=== PATIENT | female | born 1945 | race Caucasian/White ===

== ENCOUNTER 2016-07-16 17:05 | Emergency (ER) | payer MEDICARE, OTHER ==
--- NOTE | 2016-07-16 18:07 | RAD ---
INDICATION: Chest pain COMPARISON: Chest x-ray dated June 21, 2014 TECHNIQUE: Single AP portable view of the chest was obtained. FINDINGS: Image quality is compromised due to the relative inferiority of a portable chest x-ray. The heart and mediastinum exhibit normal size and contour. The lungs are grossly clear. There is no evidence of a large pleural effusion. Visualized bones are normal for the patient's age. IMPRESSION: No radiographic evidence for acute cardiopulmonary abnormality on this portable chest x-ray.
[2016-07-16 18:26] LABS: Hematocrit 44 % (35-47); Hemoglobin 14.7 g/dl (12.0-16.0); Mean Corpuscular HGB Conc 34 g/dl (31-36); Mean Corpuscular Hemoglobin 28 pg (27-31); Mean Corpuscular Volume 83 fL (80-97); Mean Platelet Volume 8 um3 (7.4-10.4); Red Blood Count 5.26 10^6/ul (4.0-5.4); Red Cell Distribution Width 14 % (10.5-15); White Blood Count 6.6 10^3/ul (3.5-10.8)
[2016-07-16 18:43] LABS: BUN/Creatinine Ratio 15.9 (8-20); EGFR African American 119.8 (>60); EGFR Non-African American 93.2 (>60); Globulin 2.4 g/dL (2-4); Magnesium 2.9 mg/dL (1.9-2.7); Potassium 3.4 mmol/L (3.5-5.0); Total Bilirubin 0.3 mg/dL (0.2-1.0); Total Protein 6.4 g/dL (6.4-8.9); Troponin I 0.01 ng/mL (<0.04)
[2016-07-16] MEDS ORDERED: Potassium Chlor TAB* 20 MEQ TAB.ER PO ONE (18:47)
[2016-07-16 18:57] LABS: TSH (Thyroid Stimulating Horm) 2.35 mcIU/mL (0.34-5.60)
--- NOTE | 2016-07-16 23:03 | ED ---
I, Oh,Soohayan, scribed for Ron Acevedo MD on 07/16/16 at 1739 . HPI Chest Pain - HPI Summary HPI Summary: This 71 y/o female presents to ED for constant 3/10 chest tightness since 2016. Pt also reports intermittent bilat arm "twinginess", exertional SOB, and mild nonproductive cough. Pt denies any n/v or dizziness. Pt initially dismissed chest discomfort and exertional SOB as her known asthma, but decided to visit ED today when she became concerned with persistent CP. PMHx includes fibromyalgia, asthma, and HLD. She is currently on lovastatin. Last stress test was several years ago and was benign. PSHx includes right ankle repair. Pt is nonsmoker and nondrinker. - History of Current Complaint Chief Complaint: EDChestPainROMI Time Seen by Provider: 07/16/16 17:25 Hx Obtained From: Patient Onset/Duration: Started Weeks Ago, Still Present Timing: Constant Initial Severity: Moderate Current Severity: Moderate Pain Intensity: 3 Pain Scale Used: 0-10 Numeric Chest Pain Location: Diffuse Chest Pain Radiates: Yes Chest Pain Radiates To:: Arm - bilat Character: Tightness Aggravating Factor(s): Nothing Alleviating Factor(s): Nothing Associated Signs and Symptoms: Positive: Chest Pain, Shortness of Breath - exertional, Nonproductive Cough. Negative: Fever, Chills, Nausea, Vomiting - Allergy/Home Medications Allergies/Adverse Reactions: Allergies Allergy/AdvReac Type Severity Reaction Status Date / Time Albuterol Allergy VOMITING, Verified 02/28/16 17:38 Cephalexin Allergy Vomiting Verified 02/28/16 17:38 Iodinated Contrast Media Allergy Anaphylatic Verified 02/28/16 17:38 [CONTRAST DYE] Shock Peanut-containing Drug Allergy Anaphylatic Verified 02/28/16 17:38 Products Shock Tree Nuts Allergy Anaphylatic Verified 02/28/16 17:38 Shock ENVIRONMENTAL Allergy ASTHMA , Uncoded 02/28/16 17:38 SNEEZING ITCHY WATERY EYES GENERAL ANESTHESIA Allergy SEVERE Uncoded 02/28/16 17:38 VOMITING PMH/Surg Hx/FS Hx/Imm Hx Endocrine/Hematology History: Denies: Hx Blood Disorders Cardiovascular History: Reports: Hx Hypertension - CONTROL WITH MEDICATION Respiratory History: Reports: Hx Asthma - CONTROL WITH INHALERS GI History: Reports: Hx Gastroesophageal Reflux Disease - CONTROL WITH MEDS, Hx Irritable Bowel Musculoskeletal History: Reports: Hx Arthritis - KNEE, LEFT ANKLE, LEFT SHOULDER , Other Musculoskeletal History - Lt ankle surgery w/ hardware Sensory History: Reports: Hx Contacts or Glasses - GLASSES, Hx Hearing Aid - BILATERAL Opthamlomology History: Reports: Hx Contacts or Glasses - GLASSES - Cancer History Hx Chemotherapy: No Hx Radiation Therapy: No - Surgical History Surgery Procedure, Year, and Place: 2002 LAPAROSCOPIC CHOLECYSTECTOMY, [facility]. 1948 TONSILLECTOMY AND ADENEOIDECTOMY,. 2003 [facility]/2014 LEFT ANKLE FRACTURE ORIF, [facility] Hx Anesthesia Reactions: Yes - SEVERE VOMITING Infectious Disease History: No Infectious Disease History: Denies: Traveled Outside the [place] in Last 30 Days - Family History Known Family History: Positive: Diabetes, Other - dementia, atherosclerosis, cancer - Social History Alcohol Use: None Hx Substance Use: No Substance Use Type: Reports: None Hx Tobacco Use: Yes Smoking Status (MU): Former Smoker Amount Used/How Often: SMOKED FOR 3 MONTHS IN COLLEGE / SECONDHAND SMOKE FOR 10 YEARS Review of Systems Negative: Fever Positive: Chest Pain Positive: Shortness Of Breath - exertional, Cough - nonproductive Negative: Vomiting, Nausea Positive: Other - BUE "twinginess" Neurological: Other - negative for dizziness Negative: Weakness Negative: Anxious, Depressed All Other Systems Reviewed And Are Negative: Yes Physical Exam - Summary Physical Exam Summary: VITAL SIGNS: Reviewed. GENERAL: Patient is a well developed and nourished female who is lying comfortable in the stretcher. Patient is not in any acute respiratory distress. HEAD AND FACE: No signs of trauma. No ecchymosis, hematomas or skull depressions. No sinus tenderness. EYES: PERRLA, EOMI x 2, No injected conjunctiva, no nystagmus. EARS: Hearing grossly intact. Ear canals and tympanic membranes are within normal limits. MOUTH: Oropharynx within normal limits. NECK: Supple, trachea is midline, no adenopathy, no JVD, no carotid bruit, no c- spine tenderness, neck with full ROM. CHEST: Symmetric, no tenderness at palpation LUNGS: Clear to auscultation bilaterally. No wheezing or crackles. CVS: Regular rate and rhythm, S1 and S2 present, no murmurs or gallops appreciated. ABDOMEN: Soft, non-tender. No signs of distention. No rebound no guarding, and no masses palpated. Bowel sounds are normal. EXTREMITIES: FROM in all major joints, no edema, no cyanosis or clubbing. NEURO: Alert and oriented x 3. No acute neurological deficits. Speech is normal and follows commands. SKIN: Dry and warm Triage Information Reviewed: Yes Vital Signs On Initial Exam: Initial Vitals Temp Pulse Resp BP Pulse Ox 96.3 F 92 16 159/84 99 07/16/16 17:13 07/16/16 17:13 07/16/16 17:13 07/16/16 17:13 07/16/16 17:13 Vital Signs Reviewed: Yes Diagnostics - Vital Signs Vital Signs Temp Pulse Resp BP Pulse Ox 07/16/16 17:13 96.3 F 92 16 159/84 99 - Laboratory Lab Results: Lab Results 07/16/16 07/16/16 07/16/16 Range/Units 18:00 18:00 18:00 WBC 6.6 (3.5-10.8) 10^3/ul RBC 5.26 (4.0-5.4) 10^6/ul Hgb 14.7 (12.0-16.0) g/dl Hct 44 (35-47) % MCV 83 (80-97) fL MCH 28 (27-31) pg MCHC 34 (31-36) g/dl RDW 14 (10.5-15) % Plt Count 231 (150-450) 10^3/ul MPV 8 (7.4-10.4) um3 Neut % (Auto) 69.5 (38-83) % Lymph % (Auto) 23.2 L (25-47) % [place] % (Auto) 4.8 (1-9) % Eos % (Auto) 2.0 (0-6) % Baso % (Auto) 0.5 (0-2) % Absolute Neuts (auto) 4.6 (1.5-7.7) 10^3/ul Absolute Lymphs (auto) 1.5 (1.0-4.8) 10^3/ul Absolute Monos (auto) 0.3 (0-0.8) 10^3/ul Absolute Eos (auto) 0.1 (0-0.6) 10^3/ul Absolute Basos (auto) 0 (0-0.2) 10^3/ul Absolute Nucleated RBC 0 10^3/ul Nucleated RBC % 0.1 Sodium 137 (133-145) mmol/L Potassium 3.4 L (3.5-5.0) mmol/L Chloride 103 (101-111) mmol/L Carbon Dioxide 27 (22-32) mmol/L Anion Gap 7 (2-11) mmol/L BUN 10 (6-24) mg/dL Creatinine 0.63 (0.51-0.95) mg/dL Est GFR ( Amer) 119.8 (>60) Est GFR (Non-Af Amer) 93.2 (>60) BUN/Creatinine Ratio 15.9 (8-20) Glucose 100 (70-100) mg/dL Lactic Acid 0.7 (0.5-2.0) mmol/L Calcium 9.0 (8.6-10.3) mg/dL Magnesium 2.9 H (1.9-2.7) mg/dL Total Bilirubin 0.30 (0.2-1.0) mg/dL AST 19 (13-39) U/L ALT 16 (7-52) U/L Alkaline Phosphatase 61 (34-104) U/L Total Creatine Kinase 35 (10-223) U/L CK-MB (CK-2) 1.2 (0.6-6.3) ng/mL Troponin I 0.01 (<0.04) ng/mL B-Natriuretic Peptide ( - 100) pg/mL Total Protein 6.4 (6.4-8.9) g/dL Albumin 4.0 (3.2-5.2) g/dL Globulin 2.4 (2-4) g/dL Albumin/Globulin Ratio 1.7 (1-3) TSH Pending 07/16/16 Range/Units 18:00 WBC (3.5-10.8) 10^3/ul RBC (4.0-5.4) 10^6/ul Hgb (12.0-16.0) g/dl Hct (35-47) % MCV (80-97) fL MCH (27-31) pg MCHC (31-36) g/dl RDW (10.5-15) % Plt Count (150-450) 10^3/ul MPV (7.4-10.4) um3 Neut % (Auto) (38-83) % Lymph % (Auto) (25-47) % [place] % (Auto) (1-9) % Eos % (Auto) (0-6) % Baso % (Auto) (0-2) % Absolute Neuts (auto) (1.5-7.7) 10^3/ul Absolute Lymphs (auto) (1.0-4.8) 10^3/ul Absolute Monos (auto) (0-0.8) 10^3/ul Absolute Eos (auto) (0-0.6) 10^3/ul Absolute Basos (auto) (0-0.2) 10^3/ul Absolute Nucleated RBC 10^3/ul Nucleated RBC % Sodium (133-145) mmol/L Potassium (3.5-5.0) mmol/L Chloride (101-111) mmol/L Carbon Dioxide (22-32) mmol/L Anion Gap (2-11) mmol/L BUN (6-24) mg/dL Creatinine (0.51-0.95) mg/dL Est GFR ( Amer) (>60) Est GFR (Non-Af Amer) (>60) BUN/Creatinine Ratio (8-20) Glucose (70-100) mg/dL Lactic Acid (0.5-2.0) mmol/L Calcium (8.6-10.3) mg/dL Magnesium (1.9-2.7) mg/dL Total Bilirubin (0.2-1.0) mg/dL AST (13-39) U/L ALT (7-52) U/L Alkaline Phosphatase (34-104) U/L Total Creatine Kinase (10-223) U/L CK-MB (CK-2) (0.6-6.3) ng/mL Troponin I (<0.04) ng/mL B-Natriuretic Peptide 23 ( - 100) pg/mL Total Protein (6.4-8.9) g/dL Albumin (3.2-5.2) g/dL Globulin (2-4) g/dL Albumin/Globulin Ratio (1-3) TSH Result Diagrams: 07/16/16 18:00 07/16/16 18:00 Lab Statement: Any lab studies that have been ordered have been reviewed, and results considered in the medical decision making process. - Radiology CXR Xray Interpretation: No Acute Changes Radiology Interpretation Completed By: Radiologist - EKG 1720 Cardiac Rate: NL - 71 bpm EKG Rhythm: Sinus Rhythm Chest Pain Course/Dx - Course Assessment/Plan: This 71 y/o female presents to ED for constant 3/10 chest tightness since 07/07/2016. Pt also reports intermittent bilat arm "twinginess", exertional SOB, and mild nonproductive cough. Pt denies any n/v or dizziness. Pt initially dismissed chest discomfort and exertional SOB as her known asthma, but decided to visit ED today when she became concerned with persistent CP. PMHx includes fibromyalgia, asthma, and Dyslipidemia. Labs wnl except for hypokalemia for which she was given potassium chloride. Troponin #1 is 0.01. Second troponin is 0.01. EKG: NSR w/o GERALDINE. CXR: NO acute pathology. Patient has remained asymptomatic. Therefore she will be discharged home w/ f/u of PMD. I discussed all my findings and test results with the patient. Patient understands and agrees. Patient was instructed to return to the emergency room immediately if any of the symptoms return or worsens. Patient understands and agrees. Plan of care was discussed with the patient and patient understands and agrees with the plan of care. All questions were answered at patient satisfaction. There were no further complaints or concerns. Patient was instructed to follow up with primary care physician within 3 to 5 days. Patient is hemodynamically stable. Patient is alert and oriented x 3. No acute neurological deficits. - Chest Pain Differential Diagnosis/HQI/PQRI: Acute RI, ACS, Angina, CHF, Chest Wall, GI Disease, Lower Respiratory Infection - Diagnoses Provider Diagnoses: Chest pain Discharge - Discharge Plan Condition: Stable Disposition: HOME Patient Education Materials: Chest Pain (ED) Referrals: Chano Johnson MD [Primary Care Provider] - 2 Days The documentation as recorded by the Shaharm jones Soohyun accurately reflects the service I personally performed and the decisions made by me, Ron Acevedo MD.
[2016-07-16 23:08] VITALS: BP 139/65
== END 2016-07-16 23:12 | disposition home or self-care (01) ==
LOC: ED 17:05
DX: R07.9 Chest pain, unspecified (principal); R06.02 Shortness of breath; R05 Cough
CPT/HCPCS: 36415; 71010; 80053; 82550; 82553; 83605; 83735; 83880; 84443; 84484; 85025; 93005; 99284; A9270-GY

== ENCOUNTER 2017-01-17 10:41 | Day surgery (SDC) | payer MEDICARE, OTHER ==
[2017-01-17] MEDS ORDERED: Dexamethasone IV* 4 MG/ML 1 ML (4 MG) ONE (11:12)
[2017-01-17] MEDS ORDERED: Bupivacaine 0.25% SDV* 30 ML ONE (11:12)
[2017-01-17] MEDS ORDERED: Lidocaine 1% INJ* 10 MG/ML 30 ML SDV ONE (11:12)
[2017-01-17 13:01] VITALS: BP 124/88
--- NOTE | 2017-01-18 12:24 | OP ---
DATE OF OPERATION: 01/17/17 - [facility] DATE OF : 45 SURGEON: Nasim Yip DPM [facility] K[facility] STITCHER: [place]. ANESTHESIA: Straight local. PRE-OP DIAGNOSIS: Soft tissue mass, right foot. POST-OP DIAGNOSIS: Soft tissue mass, right foot. OPERATIVE PROCEDURE: Excision of soft tissue mass, right foot. ESTIMATED BLOOD LOSS: Less than 10 cc. IV FLUIDS: LR 1000 cc. DRAINS: None. SPECIMEN: DESCRIPTION OF PROCEDURE: The patient was taken to the operating room where she was placed in the supine position. Time-out was called and OR team agreed. The right foot was then blocked with 5 cc of 1% lidocaine plain intralesionally. The lateral aspect of the right heel was then prepped and draped in a sterile manner. The right foot was exsanguinated with an Esmarch bandage and the cuff was then inflated to 250 mmHg. Attention was then paid to the lateral aspect of the right heel, there was a palpable soft tissue mass on the lateral aspect approximately size 1 cm. This was confirmed via ultrasound, which showed a calcified mass as well as x-rays in the office. I then proceeded to make a linear incision, this was followed by sharp and blunt dissection. All bleeders were coagulated site, I was able to excise a 1- cm, what appeared to be, cartilaginous/calcified mass, well-circumscribed with smooth edges. I then proceeded to inspect the rest of the tissue and there appeared to be no other signs of the mass in that area. The procedure was then deemed completed. The wound was irrigated with normal saline. The wound was closed with simple sutures of 4-0 nylon. The cuff was then deflated. The patient tolerated the procedure and anesthesia well. The patient was then taken to Recovery in stable condition and was later discharged in stable condition as well. [id number]/[facility] #: [id number] [facility]ITAL[facility]
== END 2017-01-17 13:01 | disposition home or self-care (01) ==
LOC: OR 10:41
PROVIDERS: ATTEND Podiatrist
DX: D21.21 Benign neoplasm of connective and other soft tissue of right lower limb, including hip (principal)
CPT/HCPCS: 88305; 88311; J1100; J2001

== ENCOUNTER 2017-09-18 11:37 | Inpatient (IN) | payer MEDICARE, OTHER ==
--- NOTE | 2017-09-05 20:45 | HP ---
HISTORY AND PHYSICAL: DATE OF SURGERY/ADMISSION: 09/18/17 DATE OF OFFICE VISIT: 09/05/17 SURGEON: Ericka Billingsley MD* (dictated by NERIS Bain). PROCEDURE: Left total knee arthroplasty. CHIEF COMPLAINT: Left knee pain. HISTORY OF PRESENT ILLNESS: Ms. Charles is a 72-year-old female with continued complaints of left knee pain secondary to end-stage osteoarthritis. She has failed conservative management and elected to proceed with a left total knee arthroplasty, which is scheduled for 09/18/[address] Billingsley. PAST MEDICAL HISTORY: 1. Hypertension. 2. Hyperlipidemia. 3. Fibromyalgia. 4. Asthma. PAST SURGICAL HISTORY: 1. Tonsillectomy. 2. Adenoidectomy. 3. Cholecystectomy. 4. ORIF of the left ankle. CURRENT MEDICATIONS: 1. Vagifem. 2. Meloxicam 50 mg daily. 3. Naltrexone low-dose. 4. Lovastatin 20 mg q.h.s. 5. Aspirin 81 mg daily. 6. Benefiber. 7. Omeprazole 20 mg daily. 8. Venlafaxine 37.5 mg a half a tab in the morning, 1 full tab at night. 9. Irbesartan 150 mg daily. 10. Loratadine 5 mg daily as needed. 11. Xopenex HFA 45 mcg/ACT 1 puff 4 times a day as needed. 12. CoQ10. 13. Multivitamin. 14. EpiPen as needed. 15. Triamcinolone cream. 16. Probiotic complex 17. Vitamin D3. 18. Vitamin B complex. 19. Aerospan twice daily. 20. Singulair 10 mg daily. 21. Turmeric. 22. Calcium. 23. Magnesium. 24. Zinc. 25. Clobetasol. 26. Restasis. ALLERGIES: NUTS, ALBUTEROL, LEVAQUIN, CONTRAST DYE, KEFLEX, and ANIMAL HAIR. FAMILY HISTORY: Cancer, Alzheimer's, and stroke. SOCIAL HISTORY: She is a 72-year-old female. She lives with her . She does not smoke, use drugs or alcohol. REVIEW OF SYSTEMS: A complete 14-point review of systems was reviewed with the patient, it was positive for GERD and asthma. She denies history of DVT, PE, hepatitis C, or HIV. PHYSICAL EXAMINATION GENERAL: She is well developed, well nourished, in no acute distress. VITAL SIGNS: She stands 5 feet 8 inches tall, weighs 208 pounds. Her blood pressure is 132/88. Her heart rate is 73. HEENT: Normocephalic, atraumatic. NECK: Supple. No palpable lymph nodes. PULMONARY: The lungs are clear to auscultation. CARDIO: Regular rate and rhythm. Strong S1, S2. ABDOMEN: Soft, nontender, and nondistended. MUSCULOSKELETAL: Left lower extremity: The skin is intact. There are no open wounds or abrasions. She has some tenderness along the medial and lateral joint line. 10 to 120 degrees of flexion. No varus or valgus instability. Negative Francisco J's. 5/5 lower extremity strength. 2+ dorsalis pedis pulses and intact sensation. NEUROLOGICAL: She is alert and oriented x3. Cranial nerves II through XII are intact. ASSESSMENT AND PLAN: Ms. Charles is a 72-year-old female with continued complaints of left knee pain secondary to end-stage osteoarthritis. She has failed conservative management and elected to proceed with a left total knee arthroplasty, which is scheduled for 09/18/[address] Billingsley discussed the risks and benefits of the surgery at today's visit and all of her questions were answered. She will follow up with Dr. Billingsley in 2 weeks after the surgery. NERIS BAIN [id number]/[facility] #: [id number] [facility]
[~2017-09-18 11:37] MED LIST: Acetaminophen IV 1GM/100ML * 1,000 MG/100 ML VIAL IVPB ONE; Buffered Lidocaine 0.9% SYRIN* 5 ML/SYR SYRINGE INTRADERM ONE; Dexamethasone IV* 4 MG/ML 1 ML (4 MG) IV SLOW PU ONE; Famotidine IV* 10 MG/ML 2 ML (20 mg) IV ONE; Gabapentin CAP(*) 300 MG PO ONE; Levalbuterol 0.63MG/3ML NEB* UNIT OF USE INH ONE; celeCOXIB CAP* 200 MG PO ONE
--- OUTSIDE RECORDS SUMMARY | 2017-09-18 11:48 | XMS REPORT ---
:1945 External Reference #:[id number] Author Organization [facility] Address [address] [address] Phone [phone] Care Team Providers Name Role Phone Chano Johnson MD Primary Care Physician Unavailable Payers Type Date Identification Numbers Payment Provider Subscriber Medicare Primary Effective: Policy Number: Medicare Alison Hubbard 2010 [id number] PayID: [id number] [address] [place] [address] Commercial Policy Number: [id number] [employer] Alison Hubbard Group Number: [id number] [address] PayID: [id number] [place] [address] Medigap Part B Expires: 2017 Policy Number: [employer] Insurance Alison Hubbard [id number] Group Number: [id number] [address] PayID: [id number] [place] [address] Problems Date Description Provider Status Onset: 05/29/2010 Benign essential hypertension Reji Abel M.D.,FACP Onset: 06/27/2011 Essential tremor Reji Abel M.D.,FACP Onset: 01/03/2012 Pure hypercholesterolemia Reji Abel M.D.,FACP Onset: 06/10/2014 Mild persistent asthma Reji Abel M.D.,FACP Onset: 06/13/2014 Arthralgia of the ankle and/or foot Eastonstuart Mukherjee M.D. Active Onset: 07/11/2014 Localized, primary osteoarthritis Easton Mukherjee M.D. Active of the shoulder region Onset: 06/15/2015 Irritable bowel syndrome Reji Abel M.D.,FACP Onset: 03/01/2016 Closed fracture of patella Woodrow Badillo MD Active Onset: 06/06/2017 Acquired genu valgum Ericka Billingsley M.D. Active Onset: 06/03/2017 Localized, secondary osteoarthritis Woodrow Badillo MD Active Onset: 06/27/2017 Fibromyalgia Reji Abel M.D.,FACP Onset: 08/26/2017 Lumbar radiculopathy Woodrow Badillo MD Active Onset: 01/03/2012 Myalgia & Myositis Unspec Chano Johnson, Blanche Tucker,FACP Inactive: 03/10/2015 Onset: 06/13/2014 Closed bimalleolar fracture Easton Mukherjee M.D. Inactive Inactive: 03/10/2015 Onset: 06/13/2014 Fall From Other Slipping,Tripping, Easton Mukherjee M.D. Inactive Or Stumbling Inactive: 03/10/2015 Onset: 09/12/2014 Localized, primary osteoarthritis Easton Mukherjee M.D. Inactive Inactive: 03/10/2015 Onset: 09/12/2014 Arthralgia of the lower leg Easton Mukherjee M.D. Inactive Inactive: 03/10/2015 Onset: 05/29/2010 Blood chemistry abnormal Chano Johnson M.D.,FACP Inactive Inactive: 03/10/2015 Onset: 06/13/2014 Sprain of ankle Easton Mukherjee M.D. Inactive Inactive: 06/15/2015 Onset: 07/11/2014 Shoulder joint pain Easton Mukherjee M.D. Inactive Inactive: 06/15/2015 Onset: 07/11/2014 Disorder of shoulder Easton Mukherjee M.D. Inactive Inactive: 06/15/2015 Onset: 07/11/2014 Shoulder stiff Easton Mukherjee M.D. Inactive Inactive: 06/15/2015 Onset: 07/16/2016 Chest pain Jhonathan Vasquez NP Inactive Inactive: 07/31/2016 Onset: 07/04/2014 Sprain of distal tibiofibular Easton Jerrell Mukherjee M.D. Resolved ligament Resolved: 03/10/2015 Family History Date Family Member(s) Problem(s) Comments General Cancer, Breast 2 paternal cousins General Cancer bone cancer in 2 other cousins Father due to polycythemnia () and TIAs Mother Cancer, Breast ER positive age 80, was on tamoxifen Mother 97 Siblings 1 First Sister Alive And Well Paternal Grandfather due to Dementia () - ?vascular Paternal Grandmother due to Cancer, Breast () Social History Type Date Description Comments Marital Status Lives With Occupation Process Development Engineer Occupation Simple [employer] intermittently Cigarette Use Never Smoked Cigarettes some 2nd hand ETOH Use 06/27/2017 Denies alcohol use Recreational Drug Use Denies Drug Use Smoking Patient is a former 3 month smoker in college. smoker Lived w/ 10 year smoker. Daily Caffeine Consumes on average 3 cups of regular coffee per day Exercise Type/Frequency Walks 2 times a week walk 10-15 mins 3 times a week at the gym - 45 mins -20 mins cardio 25 weight training General Hx Text no kids Allergies, Adverse Reactions, Alerts Date Description Reaction Status Severity Comments 04/28/2007 Nuts active 06/24/2008 Albuterol active vomiting 01/23/2011 Levaquin active hepatitis, vomiting 06/27/2011 contrast dye active shaky, hives 11/23/2012 Cephalexin vomiting active 08/26/2016 Animal Hair Urticaria active Mild to Moderate Medications Medication Date Status Form Strength Qnty SIG Indications Ordering Provider Mobic 08/26 Active Tablets 15mg 30tab take 1 M54.16 Zaneb /2017 s daily with MD Justino food. Cyclobenzaprine 08/26 Active Tablets 10mg 30tab take 1 tab M54.16 Zaneb HCL s 3 times a MD Justino day as needed Vagifem 06/27 Active Tablets 10mcg pv 2x/wk Chano /Woo Johnson M.D.,FACP Naltrexone Low 04/01 Active Powder 2.5mg 60uni 1-2 by Chano ts mouth Floresita Johnson, every day M.D.,FACP as needed (compounde d for daily use) Lovastatin 10/25 Active Tablets 20mg 90tab Take 1 s tablet by Floresita Johnson, mouth at Afshin.Floresita,FACP bedtime Aspir-81 08/[address] 81mg 30tab 1 by mouth s every day Floresita Johnson, except on M.D.,FACP days she takes Aspirn 325 MG for pain Benefiber 06/08 Active Powder 1 Tb with 8 oz of Citizen Of [place], PROPERTY ADMINISTRATOR water daily in the am Omeprazole 05/[address] 20mg 30cap 1 by mouth K21.9 s daily, november Citizen Of [place], PROPERTY ADMINISTRATOR take 1 capsule 12 hours later as needed Venlafaxine HCL 08/04 Active Tablets 37.5mg 135ta Take bs One-Half Floresita Johnson, Tablet By Caitlin,FACP Mouth In The Morning And 1 Tablet By Mouth In The Evening Irbesartan 10/27 Active Tablets 150mg 90tab Take 1 R49.8 s tablet by Floresita Johnson, mouth M.DRobin,FACP daily Loratadine-D 06/27 Active Tablets ER 5mg 1 po qd 24HR /2010 24HR prn Floresita Johnson M.D.,FACP Xopenex HFA 09/12 Active Aerosol 45mcg/Act 1Mon 1 puff qid prn Floresita Johnson M.D.,FACP Co Q 10 12/30 Active Capsules 1 tablets Qutayb po qd Anahi Trinh M.D. Multi-Vitamin 12/30 Active Tablets 90tab 1 PO qd Qutayb s Anahi Trinh M.D. Epipen 04/28 Active Device 1:1000 1unit Ine Qutayb s Injection S. as Needed Caitlin Trinh Triamcinolone Active Cream 0.1% 30G apply bid Unknown Cream /0000 prn Probiotic Active Capsules 2 capsule Unknown Complex/Acidophi /0000 daily alyssa Vitamin D3 Active Capsules 2000Unit 4caps 1 cap Unknown / daily Vitamin B Active Tablets 1 by Unknown Complex /0000 [id number] per week Aerospan Active Aerosol 80mcg/Act 2 puff Unknown twice a day Singulair Active Tablets 10mg 1 by mouth every day Melatonin Active 300mcg nightly as needed Epinephrine Active Solution 0.15mg/0. As needed Auto-Inject 3ML Turmeric Active 1 daily Unknown Calcium Active Tablet 500-300mg 1 tab po Unknown Magnesium Zinc daily Clobetasol Active Ointment 0.05% topical Unknown Propionate every day as needed Restasis Active Emulsion 0.05% Barrett-E Active Tablets 200mg daily Lutein Active daily Unknown Pataday Active Solution 0.2% 1 ggt both eyes every day as needed Meloxicam 06/06 Hx Tablets 15mg 30tab 1 by mouth M25.562 Ericka s every day Mik Billingsley M.D. 08/02 Sulfamethoxazole 12/17 Hx Tablets 800-160mg 10tab by mouth Chano /Trimethoprim /2016 s twice a Floresita Johnson, - day MNaman,[facility] 12/22 Naltrexone Low 12/03 Hx Powder 4.5mg 90uni 1 by mouth Chano Dose /2016 ts every day Floresita Johnson, - saud Tucker,FACP 04/01 d daily use) Naltrexone Low 10/04 Hx Powder 1.5mg 30uni 1 by mouth Jhonathan Dose /2016 ts every day Citizen [place], PROPERTY ADMINISTRATOR - 12/03 Naltrexone Low 08/20 Hx Powder 4.5mg 30uni 1 capsule Chano Dose /2016 ts daily Mik Plata M.D.,[facility] 10/04 Bactrim DS 08/13 Hx Tablets 800-160mg 10tab 1 by mouth Chano /2016 s twice a DRobin Johnson, - day M.DRobin,FACP 08/18 Lovastatin 06/25 Hx Tablets 20mg 90tab take 1 s tablet at Floresita Johnson, - bedtime MNaman,FACP 07/31 Nitrofurantoin 04/29 Hx Capsules 100mg 14cap 1 capsule R30.0 Jhonathan Macrocrystal s by mouth CORINA Vasquez - twice a 05/06 day x's days Polymyxin B 03/06 Hx Solution 65607-3.1 10uni 1 ggt H10.89 Chano Sulfate/Trimetho Unit/ML-% ts affected Floresita Johnson, prim Sulfate - eye every M.D.,[facility] 03/11 3 hours 5 days Hydrocodone-Acet 03/01 Hx Tablets 5-325mg 60tab 1-2 tabs S82.036A Jess Allan aminophen s by mouth Floresita Johnson, - four times M.D.,[facility] 05/14 a day needed pain Bactrim DS 01/03 Hx Tablets 800-160mg 10tab 1 by mouth s twice a Floresita Johnson, - day M.D.,[facility] 01/08 Macrodantin 12/25 Hx Capsules 100mg 6caps 1 tablet N39.0 by mouth CORINA Vasquez - twice a 12/28 day x's days Diclofenac 12/[address] 75mg 60tab take 1 M75.41 Zaneb Sodium s tablet MD Justino - twice a 04/29 day food do not combine with ibuprofen Xarelto 06/14 Hx Tablets 10mg 30tab 1 tablet Easton Allan /2013 s po daily Lonny - M.DRobin 11/18 Hydrocodone-Acet 12/17 Hx Tablets 7.5-325mg 60tab 1 by mouth García aminoalycia s twice a Marissaika, - day as M.D. 03/01 needed pain Macrobid 06/15 Hx Capsules 100mg 14cap 1 tab po 599.0 s bid x 7 Cotton, - days M.D. 10/28 Omeprazole OTC 11/[address] 30cap 1 po qd Chano Mik Bailey M.D.,[facility] 05/10 Nexium 11/[address] 40mg 90cap Take 1 s Monica Boudreaux M.D. - Daily 11/23 Nexium 11/[address] po qpm Mik Plata M.D.,[facility] 11/19 Savella 08/04 Hx Tablets 12.5mg 60tab take 1 729.1 s tablet Floresita Johnson, - twice a M.D.,[facility] Savella 07/22 Hx Tablets 50mg 60tab 1 po bid 729.1 s Mik Plata M.D.,[facility] 08/04 Zantac 06/22 Hx Tablets 150mg 60tab 1 po bid 787.99 Chano s prn Mik Plata M.D.,[facility] 11/23 Savella 06/22 Hx Misc 12.5& 1pak as 787.99 Chano Titration 25&50 directed Floresita Johnson, - mg samples M.D.,[facility] 07/02 Anusol-HC 03/31 Hx Suppository 25mg 28uni 1 455.0 ts suppositor Floresita Johnson, - y bid x 14 M.D.,[facility] Metamucil 03/31 Hx Powder 48.57% 30Pac 3.4 g of 455.0 Olga kets pwder in 8 Deep, - oz fluid N.P. 07/22 Culturelle 03/31 Hx Capsules 30cap 1 po qd 455.0 Olga [facility] s Deep, - N.P. 07/22 564.1 Sitz Bath 03/31/2012 - Hx Misc 1units as directed 455.2 Olga 11/23/2012 Deep, N.P. Venlafaxine HCL 02/03/2012 - Hx Tablets 37 180tabs Take 1 Tablet Bret 07/20/2012 .5 daily for 10 Endo, M.D. mg days then stop Dhea 06/27/2011 - Hx Capsules 10 1 capsule Chano 01/03/2012 mg daily Floresita Johnson M.D.,[facility] Hydrocodone/Yonas 03/26/2011 - Hx Tablets 7. 60tabs 1 Bid prn Olga taminophen 12/17/2013 5- Deep, 65 N.P. 0m g Doxycycline 01/23/2011 - Hx Tablets 10 28tabs 100 mg orally Chano Hyclate 03/12/2011 0m twice daily x laure Plata 14 days M.DRobin,FACP Penicillin V 01/19/2011 - Hx Tablets 50 40tabs qid for 10 Chano Potassium 01/23/2011 0m days laure Plata M.D.,LANIP Aspirin 01/19/2011 - Hx Tablets 32 1-2 po qid prn Chano 11/23/2012 5m laure Plata M.D.,LANIP Cephalexin 01/04/2011 - Hx Tablets 50 21tabs po tid 682.9 Chano 01/14/2011 0m laure Plata M.D.,FACP Sertraline HCL 08/09/2010 - Hx Tablets 25 30tabs 12.5 po qam Chano 01/16/2011 mg Floresita Johnson M.D.,FACP Meclizine HCL 08/09/2010 - Hx Tablets 25 30tabs 1/2-1 po tid 386.19 Chano 11/19/2010 mg prn Floresita Johnson M.D.,ANSHU Erythomycin 06/12/2010 - Hx Oint 1Tube 5x day for 5 372.00 Chano Ophthalmic 11/19/2010 days od Floresita Johnson M.D.,ANSHU Fluticasone 12/13/2009 - Hx Suspension 50 1bottle 1 spray each 784.0 Chano Propionate 06/27/2011 nostril in am laure Plata/ giorgion Caitlin,ANSHU Ac t Avapro 09/12/2009 - Hx Tablets 15 90tabs 1 po qd 784.49 Chano 10/28/2011 0m laure Plata M.D.,LANIP Azithromycin 08/22/2009 - Hx Tablets 50 5tabs 1 tab qd for 466.0 Jess Allan 09/12/2009 0m 5days laure Plata M.D.,FACP Diflucan 09/30/2008 - Hx Tablets 10 1tabs 1 po x 1 Chano 12/29/2008 0m laure Plata M.D.,[facility] Augmentin 08/26/2008 - Hx Tablets 87 20tabs si bid x 466.0 Jess Allan 08/31/2008 5m 10 days laure Plata M.D.,[facility] Avelox 06/24/2008 - Hx Tablets 40 7tabs 1 po qd x 7 562.10 Chano 12/29/2008 0m days laure Plata M.D.,[facility] Ceftin 04/19/2008 - Hx Tablets 50 28tabs 1 bid X 14 562.10 Chano 06/24/2008 0m Days with food laure Plata M.D.,[facility] Hetal-B 12/31/2007 - Hx Capsules 2 po qd Qutaybeh S. 11/23/2012 Caitlin Trinh Calcium 500 12/31/2007 - Hx Tablets 50 1 PO qd (Is Qutaybeh S. 10/13/2016 0m now taking laure Trinh calcium 300mg, MRobinDRobin magnesium 150 mg ) Magnesium 12/31/2007 - Hx Tablets 1 PO qd Qutaybeh S. 05/09/2015 Caitlin Trinh Fish Oil 12/31/2007 - Hx Capsules 90caps 1 PO qd Qutaybeh S. 12/26/2015 Caitlin Trinh Lisinopril 12/23/2007 - Hx Tablets 20 8tabs 1 po qd 784.49 Qutaybeh S. 09/12/2009 mg Caitlin Trinh Lisinopril 07/29/2007 - Hx Tablets 10 180tabs 2 PO qd Qutaybeh S. 12/23/2007 mg Caitlin Trinh Lisinopril 07/28/2007 - Hx Tablets 10 2 PO qam, 1 po Qutaybeh S. 07/29/2007 mg qpm Caitlin Trinh Lisinopril 07/27/2007 - Hx Tablets 10 2 po qd Qutaybeh S. 07/28/2007 mg Caitlin Trinh Isocort 06/15/2007 - Hx 4/d for Qutaybeh S. 12/08/2007 fibromyalgia phillip Trinh M.D. Naproxen Sodium 06/15/2007 - Hx Tablets 2-4 1x/week Qutaybeh S. 01/16/2011 Caitlin Trinh Lisinopril 06/15/2007 - Hx Tablets 10 30tabs 1 po qd Qutaybeh S. 07/27/2007 mg Gayathri M.D. Zoloft 04/28/2007 - Hx Tablets 50 1 PO qd Qutaybeh S. 08/09/2010 mg Gayathri M.D. Effexor 04/28/2007 - Hx Tablets 37 180tabs 1 PO bid Bret 06/22/2012 .5 Caitlin Boudreaux mg Flovent 04/28/2007 - Hx Aerosol 44 3units 2 puff bid Qutaybeh S. 12/10/2014 laure Hammond/ Caitlin Ac t Vicodin ES 04/28/2007 - Hx Tablets 7. 40tabs 1 PO at hs Qutaybeh S. 03/26/2011 5- and prn Gayathri 75 MRobinDRobin 0 Lisinopril 04/28/2007 - Hx Tablets 5m 90tabs 1and 1/2 PO qd Qutaybeh S. 06/15/2007 laure Trinh M.D. Nexium 04/28/2007 - Hx Capsules 40 90caps Take 1 Capsule 787.99 Bret 06/22/2012 mg Daily Caitlin Boudreaux Vitamin D 400 - Hx Chewtabs 40 1 po qd Unknown 03/16/2013 00 Un it Dhea - Hx Capsules 25 1 po qd Unknown 01/16/2011 mg Phoslo - Hx Capsules 66 180caps 2 cap po tid Unknown 01/16/2011 7m g needs apt. to establish with Doxycycline - Hx Capsules Unknown 03/12/2011 Benefiber - Hx Powder 1 tblsp po qd Unknown 05/08/2015 prn Melatonin - Hx Tablets 30 1 at dinner Unknown 05/09/2015 0m cg Calcium - Hx Tablets 30 1 by mouth Unknown 06/10/2014 0m every day g Magnesium - Hx Tablets 40 1 by mouth 3 Unknown 08/02/2017 0m times a week g Probiotic Daily - Hx Capsules 1 by mouth Unknown 10/13/2016 twice daily Aspirin Ec - Hx Tablets DR 32 take 1 tab by Unknown 06/27/2017 5m mouth as g needed for pain Estradiol - Hx once weekly Unknown 06/27/2017 Medications Administered in Office Medication Date Status Form Strength Qnty SIG Indications Ordering Provider Synvisc Or 07/25/ Administered Injection Ericka Synvisc-One 2017 Josec Ruz, Injection 1 MG M.D. Synvisc Or 07/18/ Administered Injection Ericka Synvisc-One 2017 Jose Cruz, Injection 1 MG M.D. Synvisc Or 07/11/ Administered Injection Ericka Synvisc-One 2017 Jose Cruz, Injection 1 MG M.D. Triamcinolone 05/15/ Administered Injection Zaneb (Kenalog) 2016 MD Justino Technetium TC 08/14/ Administered Injection Bhavesh Alvarez 99M Tetrofosmin, 2017 Manpreet, Per Unit Dose Up M.D., To 40 FACC, Millicuries FASNC Triamcinolone 12/13/ Administered Injection Zaneb (Kenalog) 2015 MD Justino Depomedrol 40MG 07/26/ Administered Injection Dirk 2015 Caitlin Kaye Depomedrol 80MG 04/12/ Administered Injection Marleny 2014 ERIKA Arndt Depomedrol 80MG 03/23/ Administered Injection Dirk 2013 Caitlin Kaye Immunizations CPT Code Status Date Vaccine Reaction Lot # [id number] Given 05/15/2017 Influenza Virus Vaccine, [id number] Quadrivalent, Split, Preservative Free 70983 Given 06/25/2016 Influenza Virus Vaccine, no immediate reaction [id number] Quadrivalent, Split Virus, noted ... hh [place] Use 27931 Given 06/15/2015 Pneumococcal Conjugate [id number] Vaccine 13 Valent For Intramuscular Use 19915 Given 05/10/2015 Influenza Virus Vaccine, [id number] Quadrivalent, Split, Preservative Free 82764 Given 06/10/2014 Flu Vaccine Split Virus [id number] Preservative Free For Indiv 3Yr Older 03623 Given 05/20/2013 Flu Vaccine Split Virus [id number] Preservative Free For Indiv 3Yr Older Q2038 Given 03/31/2012 Fluzone Vaccine [id number] 49471 Given 04/25/2011 Influenza Virus 3Yrs & Over 83028 Given 05/29/2010 Pneumonia Vaccine [id number] 40935 Given 05/04/2010 Influenza Virus 3Yrs & [id number] Over 56814 Given 11/01/2009 Tetanus And Diptheria (Td) For Adult Use Preservative Free 19970 Given 12/23/2008 Tetanus And Diptheria (Td) [id number] For Adult Use Preservative Free 22773 Given 12/01/2008 Tetanus And Diptheria (Td) For Adult Use Preservative Free 33883 Given 07/07/2006 Zoster (Zostavax) Vital Signs Date Vital Result Comment 09/02/2017 Height 67.5 inches 5'7.50" Weight 211.00 lb w/ shoes Heart Rate 72 /min reg BP Systolic Sitting 114 mmHg Lue BP Diastolic Sitting 72 mmHg Lue Respiratory Rate 16 /min BMI (Body Mass Index) 32.6 kg/m2 Ejection Fraction 55-60% As of 09/2016 echo 08/26/2017 Height 67.5 inches 5'7.50" Weight 208.00 lb BP Systolic 130 mmHg BP Diastolic 78 mmHg Respiratory Rate 20 /min Pain Level 7 BMI (Body Mass Index) 32.1 kg/m2 07/25/2017 Height 67.5 inches 5'7.50" Weight 208.00 lb BP Systolic 136 mmHg BP Diastolic 84 mmHg Body Temperature 98.1 F Pain Level 4 BMI (Body Mass Index) 32.1 kg/m2 07/18/2017 Height 67 inches 5'7" Weight 208.00 lb BP Systolic 126 mmHg BP Diastolic 72 mmHg Respiratory Rate 20 /min Pain Level 3 BMI (Body Mass Index) 32.6 kg/m2 07/11/2017 Height 67 inches 5'7" Weight 208.00 lb BP Systolic 116 mmHg BP Diastolic 69 mmHg Respiratory Rate 15 /min Body Temperature 98.0 F Pain Level 1 BMI (Body Mass Index) 32.6 kg/m2 06/27/2017 Height 67 inches 5'7" Weight 206.00 lb Heart Rate 76 /min BP Systolic Sitting 130 mmHg BP Diastolic Sitting 80 mmHg Body Temperature 98.1 F O2 % BldC Oximetry 97 % BMI (Body Mass Index) 32.3 kg/m2 06/06/2017 Height 68 inches 5'8" Weight 208.00 lb BP Systolic 140 mmHg BP Diastolic 80 mmHg Body Temperature 97.9 F BMI (Body Mass Index) 31.6 kg/m2 06/03/2017 Height 67 inches 5'7" Weight 203.00 lb Heart Rate 76 /min Respiratory Rate 16 /min Body Temperature 98.5 F Pain Level 5 BMI (Body Mass Index) 31.8 kg/m2 05/15/2017 Height 67 inches 5'7" Weight 203.00 lb BP Systolic 122 mmHg BP Diastolic 70 mmHg Respiratory Rate 18 /min Pain Level 3 BMI (Body Mass Index) 31.8 kg/m2 12/03/2016 Weight 201.50 lb Heart Rate 72 /min BP Systolic Sitting 150 mmHg BP Diastolic Sitting 60 mmHg Body Temperature 97.6 F O2 % BldC Oximetry 97 % 10/14/2016 Height 67 inches 5'7" Weight 205.00 lb with shoes Heart Rate 98 /min BP Systolic Sitting 162 mmHg LA reg cuff BP Diastolic Sitting 88 mmHg LA reg cuff BMI (Body Mass Index) 32.1 kg/m2 Ejection Fraction 55% - 60% echo 09/23/16 08/26/2016 Height 67 inches 5'7" Weight 201.00 lb no shoes Heart Rate 84 /min BP Systolic 138 mmHg Rue reg cuff BP Diastolic 78 mmHg Rue reg cuff BP Systolic Sitting 136 mmHg Lue reg cuff BP Diastolic Sitting 72 mmHg Lue reg cuff BP Systolic Standing 142 mmHg Lue reg cuff BP Diastolic Standing 76 mmHg Lue reg cuff Respiratory Rate 17 /min BMI (Body Mass Index) 31.5 kg/m2 08/20/2016 Weight 202.00 lb Heart Rate 82 /min BP Systolic Sitting 132 mmHg BP Diastolic Sitting 82 mmHg Body Temperature 97.8 F O2 % BldC Oximetry 98 % 08/01/2016 Height 67 inches 5'7" Weight 203.00 lb Respiratory Rate 18 /min Pain Level 3 BMI (Body Mass Index) 31.8 kg/m2 07/31/2016 Weight 203.00 lb Heart Rate 90 /min BP Systolic Sitting 132 mmHg BP Diastolic Sitting 75 mmHg Body Temperature 98.7 F O2 % BldC Oximetry 98 % 07/16/2016 Weight 204.50 lb Heart Rate 78 /min BP Systolic Sitting 118 mmHg BP Diastolic Sitting 70 mmHg Body Temperature 98.5 F O2 % BldC Oximetry 97 % 07/02/2016 Height 67 inches 5'7" Weight 199.00 lb Pain Level 2 BMI (Body Mass Index) 31.2 kg/m2 06/25/2016 Height 67 inches 5'7" Weight 199.00 lb Heart Rate 76 /min BP Systolic 138 mmHg BP Diastolic 78 mmHg Body Temperature 98.7 F O2 % BldC Oximetry 98 % BMI (Body Mass Index) 31.2 kg/m2 05/21/2016 Height 67 inches 5'7" Weight 206.00 lb Pain Level 3 BMI (Body Mass Index) 32.3 kg/m2 04/29/2016 Height 67 inches 5'7" Weight 206.00 lb Heart Rate 80 /min BP Systolic Sitting 148 mmHg BP Diastolic Sitting 84 mmHg Body Temperature 98.9 F O2 % BldC Oximetry 98 % BMI (Body Mass Index) 32.3 kg/m2 04/19/2016 Height 67 inches 5'7" Weight 200.00 lb Heart Rate 60 /min Respiratory Rate 16 /min Pain Level 2 BMI (Body Mass Index) 31.3 kg/m2 03/19/2016 Height 67 inches 5'7" Weight 200.00 lb Respiratory Rate 18 /min Pain Level 3 BMI (Body Mass Index) 31.3 kg/m2 03/06/2016 Heart Rate 82 /min BP Systolic Sitting 128 mmHg BP Diastolic Sitting 86 mmHg Body Temperature 97.0 F O2 % BldC Oximetry 95 % 03/01/2016 Height 67 inches 5'7" Weight 200.00 lb Pain Level 3 BMI (Body Mass Index) 31.3 kg/m2 12/26/2015 Height 67 inches 5'7" Weight 202.25 lb Heart Rate 66 /min BP Systolic Sitting 144 mmHg BP Diastolic Sitting 90 mmHg Body Temperature 97.5 F O2 % BldC Oximetry 98 % BMI (Body Mass Index) 31.7 kg/m2 12/14/2015 Height 67 inches 5'7" Weight 208.00 lb Pain Level 7 BMI (Body Mass Index) 32.6 kg/m2 07/26/2015 Height 67 inches 5'7" Weight 207.00 lb Pain Level 4 BMI (Body Mass Index) 32.4 kg/m2 06/15/2015 Height 67 inches 5'7" Weight 207.25 lb Heart Rate 89 /min BP Systolic Sitting 128 mmHg BP Diastolic Sitting 85 mmHg Body Temperature 98.6 F O2 % BldC Oximetry 97 % BMI (Body Mass Index) 32.5 kg/m2 06/08/2015 Height 68 inches 5'8" Weight 210.00 lb Heart Rate 97 /min BP Systolic Sitting 138 mmHg BP Diastolic Sitting 78 mmHg Body Temperature 97.6 F O2 % BldC Oximetry 97 % BMI (Body Mass Index) 31.9 kg/m2 05/10/2015 Height 68 inches 5'8" Weight 209.12 lb Heart Rate 95 /min BP Systolic Sitting 128 mmHg BP Diastolic Sitting 70 mmHg Body Temperature 99.0 F O2 % BldC Oximetry 97 % BMI (Body Mass Index) 31.8 kg/m2 04/12/2015 Height 68 inches 5'8" Weight 210.00 lb Heart Rate 91 /min BP Systolic 142 mmHg BP Diastolic 88 mmHg BMI (Body Mass Index) 31.9 kg/m2 02/23/2015 Weight 209.50 lb Heart Rate 112 /min BP Systolic Sitting 122 mmHg BP Diastolic Sitting 79 mmHg Body Temperature 98.2 F 12/26/2014 Height 67.5 inches 5'7.50" Weight 217.00 lb Pain Level 3 BMI (Body Mass Index) 33.5 kg/m2 11/21/2014 Height 67.5 inches 5'7.50" Weight 217.00 lb Pain Level 2 BMI (Body Mass Index) 33.5 kg/m2 09/12/2014 Height 67.5 inches 5'7.50" Heart Rate 99 /min BP Systolic 140 mmHg BP Diastolic 85 mmHg 08/15/2014 Height 67.5 inches 5'7.50" Weight 217.00 lb Heart Rate 86 /min BMI (Body Mass Index) 33.5 kg/m2 07/11/2014 Height 67.75 inches 5'7.75" Heart Rate 86 /min BP Systolic 111 mmHg BP Diastolic 79 mmHg 07/04/2014 Height 67.75 inches 5'7.75" Heart Rate 117 /min BP Systolic 146 mmHg BP Diastolic 92 mmHg 06/20/2014 Heart Rate 78 /min BP Systolic Sitting 130 mmHg BP Diastolic Sitting 84 mmHg 06/20/2014 Height 67.75 inches 5'7.75" Heart Rate 81 /min BP Systolic 145 mmHg BP Diastolic 94 mmHg 06/20/2014 Height 67.75 inches 5'7.75" 06/20/2014 Height 67.75 inches 5'7.75" Heart Rate 81 /min BP Systolic 145 mmHg BP Diastolic 794 mmHg 06/13/2014 Height 67.75 inches 5'7.75" Heart Rate 74 /min BP Systolic 129 mmHg BP Diastolic 88 mmHg 06/10/2014 Height 67.75 inches 5'7.75" Weight 217.75 lb Heart Rate 74 /min BP Systolic Sitting 125 mmHg BP Diastolic Sitting 82 mmHg Body Temperature 9.1 F O2 % BldC Oximetry 96 % BMI (Body Mass Index) 33.3 kg/m2 04/08/2014 Weight 216.50 lb Heart Rate 83 /min BP Systolic Sitting 131 mmHg BP Diastolic Sitting 88 mmHg Body Temperature 97.0 F O2 % BldC Oximetry 95 % 03/23/2014 Height 67 inches 5'7" Heart Rate 72 /min BP Systolic 149 mmHg BP Diastolic 85 mmHg 12/08/2013 Height 67 inches 5'7" Weight 215.00 lb Heart Rate 67 /min BP Systolic 132 mmHg BP Diastolic 83 mmHg BMI (Body Mass Index) 33.7 kg/m2 11/10/2013 Height 67 inches 5'7" Weight 215.00 lb Heart Rate 97 /min BP Systolic 134 mmHg BP Diastolic 84 mmHg BMI (Body Mass Index) 33.7 kg/m2 10/28/2013 Height 67.5 inches 5'7.50" Weight 213.75 lb Heart Rate 72 /min BP Systolic Sitting 124 mmHg BP Diastolic Sitting 78 mmHg Body Temperature 97.5 F BMI (Body Mass Index) 33.0 kg/m2 06/15/2013 Weight 216.25 lb Heart Rate 80 /min BP Systolic 126 mmHg BP Diastolic 58 mmHg Body Temperature 97.6 F 05/20/2013 Height 67.75 inches 5'7.75" Weight 210.00 lb Heart Rate 88 /min BP Systolic Sitting 126 mmHg BP Diastolic Sitting 84 mmHg BMI (Body Mass Index) 32.2 kg/m2 03/16/2013 Weight 208.50 lb Heart Rate 90 /min BP Systolic Sitting 134 mmHg BP Diastolic Sitting 78 mmHg 11/23/2012 Height 67.75 inches 5'7.75" Weight 204.00 lb Heart Rate 84 /min BP Systolic Sitting 130 mmHg BP Diastolic Sitting 80 mmHg BMI (Body Mass Index) 31.2 kg/m2 11/10/2012 Weight 203.00 lb Heart Rate 76 /min BP Systolic Sitting 120 mmHg BP Diastolic Sitting 72 mmHg 07/22/2012 Height 67.5 inches 5'7.50" Weight 205.00 lb Heart Rate 100 /min BP Systolic Sitting 128 mmHg BP Diastolic Sitting 72 mmHg BMI (Body Mass Index) 31.6 kg/m2 07/09/2012 Height 67.5 inches 5'7.50" Weight 205.00 lb Heart Rate 88 /min BP Systolic Sitting 128 mmHg BP Diastolic Sitting 78 mmHg Body Temperature 97.4 F BMI (Body Mass Index) 31.6 kg/m2 06/22/2012 Height 67.5 inches 5'7.50" Weight 208.00 lb Heart Rate 88 /min BP Systolic Sitting 138 mmHg BP Diastolic Sitting 86 mmHg BMI (Body Mass Index) 32.1 kg/m2 03/31/2012 Height 67.5 inches 5'7.50" Weight 205.00 lb Heart Rate 70 /min BP Systolic Sitting 128 mmHg BP Diastolic Sitting 82 mmHg Body Temperature 98.7 F lt ear BMI (Body Mass Index) 31.6 kg/m2 01/03/2012 Height 67.5 inches 5'7.50" Weight 207.25 lb Heart Rate 72 /min BP Systolic Sitting 120 mmHg BP Diastolic Sitting 80 mmHg BMI (Body Mass Index) 32.0 kg/m2 07/16/2011 Height 67.5 inches 5'7.50" Weight 215.00 lb Heart Rate 78 /min BP Systolic Sitting 124 mmHg BP Diastolic Sitting 71 mmHg BMI (Body Mass Index) 33.2 kg/m2 06/27/2011 Height 67.5 inches 5'7.50" Weight 206.00 lb Heart Rate 80 /min BP Systolic Sitting 120 mmHg BP Diastolic Sitting 70 mmHg BMI (Body Mass Index) 31.8 kg/m2 03/12/2011 Height 67 inches 5'7" Weight 203.00 lb Heart Rate 76 /min BP Systolic 122 mmHg BP Diastolic 80 mmHg BMI (Body Mass Index) 31.8 kg/m2 01/23/2011 Weight 194.00 lb Heart Rate 74 /min BP Systolic Sitting 124 mmHg BP Diastolic Sitting 72 mmHg Respiratory Rate 20 /min Body Temperature 97.8 F left ear 01/16/2011 Heart Rate 68 /min BP Systolic 132 mmHg BP Diastolic 76 mmHg Body Temperature 97.8 F 01/14/2011 Weight 197.00 lb Heart Rate 70 /min BP Systolic Sitting 118 mmHg BP Diastolic Sitting 68 mmHg 01/04/2011 Heart Rate 68 /min BP Systolic 162 mmHg BP Diastolic 84 mmHg Body Temperature 98.8 F Tympanic 01/02/2011 Weight 202.00 lb Heart Rate 96 /min BP Systolic Sitting 90 mmHg BP Diastolic Sitting 58 mmHg Body Temperature 101.1 F lt ear O2 % BldC Oximetry 97 % room air 11/27/2010 Height 67 inches 5'7" Weight 204.00 lb Heart Rate 70 /min BP Systolic Sitting 132 mmHg BP Diastolic Sitting 70 mmHg BMI (Body Mass Index) 31.9 kg/m2 11/20/2010 Height 68 inches 5'8" Weight 204.00 lb Heart Rate 78 /min BP Systolic 120 mmHg BP Diastolic 82 mmHg BMI (Body Mass Index) 31.0 kg/m2 08/09/2010 Weight 208.00 lb Heart Rate 72 /min BP Systolic Sitting 140 mmHg BP Diastolic Sitting 84 mmHg 06/12/2010 Weight 216.00 lb Heart Rate 94 /min BP Systolic Sitting 140 mmHg BP Diastolic Sitting 82 mmHg 05/29/2010 Weight 218.00 lb Heart Rate 90 /min BP Systolic Sitting 120 mmHg BP Diastolic Sitting 78 mmHg 05/04/2010 Weight 220.00 lb Heart Rate 101 /min BP Systolic Sitting 134 mmHg BP Diastolic Sitting 80 mmHg 01/17/2010 Body Temperature 97.3 F 12/13/2009 Height 68 inches 5'8" Weight 220.00 lb Heart Rate 84 /min BP Systolic Sitting 124 mmHg BP Diastolic Sitting 80 mmHg BMI (Body Mass Index) 33.4 kg/m2 11/09/2009 Weight 220.00 lb Heart Rate 74 /min BP Systolic 140 mmHg BP Diastolic 84 mmHg 09/12/2009 Weight 222.50 lb Heart Rate 76 /min BP Systolic Sitting 108 mmHg BP Diastolic Sitting 84 mmHg Respiratory Rate 16 /min Body Temperature 98.3 F 08/22/2009 Weight 222.00 lb Heart Rate 80 /min BP Systolic Sitting 126 mmHg BP Diastolic Sitting 82 mmHg Body Temperature 98.1 F 05/11/2009 Weight 223.00 lb Heart Rate 84 /min BP Systolic Sitting 142 mmHg BP Diastolic Sitting 70 mmHg 04/18/2009 Height 68 inches 5'8" Weight 220.00 lb Heart Rate 72 /min BP Systolic Sitting 134 mmHg BP Diastolic Sitting 80 mmHg BMI (Body Mass Index) 33.4 kg/m2 12/29/2008 Height 68 inches 5'8" Weight 217.00 lb Heart Rate 67 /min BP Systolic Sitting 120 mmHg L BP Diastolic Sitting 70 mmHg L BMI (Body Mass Index) 33.0 kg/m2 12/01/2008 Weight 217.00 lb Heart Rate 76 /min BP Systolic Sitting 112 mmHg BP Diastolic Sitting 84 mmHg O2 % BldC Oximetry 97 % 09/14/2008 Weight 217.00 lb Heart Rate 80 /min BP Systolic Sitting 108 mmHg BP Diastolic Sitting 80 mmHg 08/26/2008 Height 68 inches 5'8" Weight 216.00 lb Heart Rate 72 /min BP Systolic Sitting 124 mmHg BP Diastolic Sitting 70 mmHg Body Temperature 98.9 F BMI (Body Mass Index) 32.8 kg/m2 06/24/2008 Height 68 inches 5'8" Weight 214.00 lb Heart Rate 76 /min BP Systolic Sitting 126 mmHg BP Diastolic Sitting 78 mmHg BMI (Body Mass Index) 32.5 kg/m2 04/19/2008 Height 68 inches 5'8" Weight 215.00 lb Heart Rate 76 /min BP Systolic Sitting 140 mmHg BP Diastolic Sitting 72 mmHg BMI (Body Mass Index) 32.7 kg/m2 02/04/2008 Height 68 inches 5'8" Weight 212.00 lb Heart Rate 76 /min BP Systolic Sitting 122 mmHg BP Diastolic Sitting 62 mmHg BMI (Body Mass Index) 32.2 kg/m2 01/07/2008 Height 68 inches 5'8" Weight 213.00 lb Heart Rate 76 /min BP Systolic Sitting 134 mmHg BP Diastolic Sitting 74 mmHg BMI (Body Mass Index) 32.4 kg/m2 12/31/2007 Height 68 inches 5'8" Weight 211.00 lb Heart Rate 75 /min BP Systolic Sitting 130 mmHg BP Diastolic Sitting 70 mmHg Respiratory Rate 160 /min BMI (Body Mass Index) 32.1 kg/m2 12/08/2007 Height 68 inches 5'8" Weight 212.00 lb Heart Rate 76 /min BP Systolic Sitting 118 mmHg BP Diastolic Sitting 70 mmHg Body Temperature 99.2 F BMI (Body Mass Index) 32.2 kg/m2 06/15/2007 Height 68 inches 5'8" Weight 221.00 lb Heart Rate 76 /min reg BP Systolic Sitting 132 mmHg BP Diastolic Sitting 80 mmHg BMI (Body Mass Index) 33.6 kg/m2 04/28/2007 Weight 224.00 lb Heart Rate 88 /min BP Systolic Sitting 142 mmHg BP Diastolic Sitting 80 mmHg Respiratory Rate 16 /min Body Temperature 98.5 F Results Test Date Test Result H/L Range Note Lipid Profile (Trig/Chol/HDL) 08/12/2017 Triglycerides 189 mg/dL 1 Cholesterol 176 mg/dL 2 HDL Cholesterol 48.9 mg/dL 3 LDL Cholesterol 89 mg/dL 4 Comp Metabolic Panel 08/12/2017 Sodium 138 mmol/L 133-145 Potassium 3.8 mmol/L 3.5-5.0 Chloride 103 mmol/L 101-111 Co2 Carbon Dioxide 29 mmol/L 22-32 Anion Gap 6 mmol/L 2-11 Glucose 87 mg/dL 70-100 Blood Urea Nitrogen 15 mg/dL 6-24 Creatinine 0.68 mg/dL 0.51-0.95 BUN/Creatinine Ratio 22.1 High 8-20 Calcium 9.2 mg/dL 8.6-10.3 Total Protein 5.9 g/dL Low 6.4-8.9 Albumin 4.1 g/dL 3.2-5.2 Globulin 1.8 g/dL Low 2-4 Albumin/Globulin Ratio 2.3 1-3 Total Bilirubin 0.60 mg/dL 0.2-1.0 Alkaline Phosphatase 63 U/L 34-104 Alt 13 U/L 7-52 Ast 16 U/L 13-39 Egfr Non- 85.1 >60 Egfr 109.4 >60 5 CBC Auto Diff 08/12/2017 White Blood Count 6.4 10^3/uL 3.5-10.8 Red Blood Count 5.25 10^6/uL 4.0-5.4 Hemoglobin 15.4 g/dL 12.0-16.0 Hematocrit 45 % 35-47 Mean Corpuscular Volume 85 fL 80-97 Mean Corpuscular Hemoglobin 29 pg 27-31 Mean Corpuscular HGB Conc 34 g/dL 31-36 Red Cell Distribution Width 14 % 10.5-15 Platelet Count 238 10^3/uL 150-450 Mean Platelet Volume 8 um3 7.4-10.4 Abs Neutrophils 4.7 10^3/uL 1.5-7.7 Abs Lymphocytes 1.2 10^3/uL 1.0-4.8 Abs Monocytes 0.4 10^3/uL 0-0.8 Abs Eosinophils 0.1 10^3/uL 0-0.6 Abs Basophils 0 10^3/uL 0-0.2 Abs Nucleated RBC 0 10^3/uL Granulocyte % 73.3 % 38-83 Lymphocyte % 18.6 % Low 25-47 Monocyte % 5.8 % 1-9 Eosinophil % 1.7 % 0-6 Basophil % 0.6 % 0-2 Nucleated Red Blood Cells % 0.2 Lipid Profile (Trig/Chol/HDL) 12/23/2016 Triglycerides 156 mg/dL 6, 7 Cholesterol 185 mg/dL 6, 8 HDL Cholesterol 52.0 mg/dL 6, 9 LDL Cholesterol 102 mg/dL 6, 10 Liver Function Panel 12/23/2016 Total Protein 6.5 g/dL 6.4-8.9 6 Albumin 4.2 g/dL 3.2-5.2 6 Globulin 2.3 g/dL 2-4 6 Albumin/Globulin Ratio 1.8 1-3 6 Total Bilirubin 0.60 mg/dL 0.2-1.0 6 Direct Bilirubin 0.10 mg/dL 0.03-0.18 6 Indirect Bilirubin 0.5 mg/dL 0.3-1.0 6 Alkaline Phosphatase 60 U/L 34-104 6 Alt 12 U/L 7-52 6 Ast 15 U/L 13-39 6 Urine Culture And 12/17/2016 Urine Culture SEE RESULT BELOW 11, 12 Sensitivities Ua Routine 12/17/2016 Ua Specific [place] 1.000 Ua PH 8 Ua Color faint yellow Ua Appera cloudy Ua WBC ++ Ua Protein neg Ua Glucose norm Ua Ketones neg Ua Bilirubin + Ua Urobilinogen norm Ua Nitrite neg Ua Occult Blood about 250 shantel/ul Order 08/14/2016 Stress Test, <pending> Exercise Nuclear Laboratory test 07/16/2016 TSH (Thyroid Stim 2.35 mcIU/mL 0.34-5.60 finding Horm) CKMB 07/16/2016 CKMB ng/mL 1.2 ng/mL 0.6-6.3 Laboratory test 07/16/2016 Magnesium 2.9 mg/dL High 1.9-2.7 finding Creatine Kinase(CK) 35 U/L 10-223 Troponin-I (TnI) 0.01 ng/mL <0.04 13 Comp Metabolic Panel 07/16/2016 Sodium 137 mmol/L 133-145 Potassium 3.4 mmol/L Low 3.5-5.0 Chloride 103 mmol/L 101-111 Co2 Carbon Dioxide 27 mmol/L 22-32 Anion Gap 7 mmol/L 2-11 Glucose 100 mg/dL 70-100 Blood Urea Nitrogen 10 mg/dL 6-24 Creatinine 0.63 mg/dL 0.51-0.95 BUN/Creatinine Ratio 15.9 8-20 Calcium 9.0 mg/dL 8.6-10.3 Total Protein 6.4 g/dL 6.4-8.9 Albumin 4.0 g/dL 3.2-5.2 Globulin 2.4 g/dL 2-4 Albumin/Globulin Ratio 1.7 1-3 Total Bilirubin 0.30 mg/dL 0.2-1.0 Alkaline Phosphatase 61 U/L 34-104 Alt 16 U/L 7-52 Ast 19 U/L 13-39 Egfr Non- 93.2 >60 Egfr 119.8 >60 14 Laboratory test finding 07/16/2016 B-Type Natriuretic Peptide BNP 23 pg/mL 15 Lactic Acid 0.7 mmol/L 0.5-2.0 16 CBC Auto Diff 07/16/2016 White Blood Count 6.6 10^3/uL 3.5-10.8 Red Blood Count 5.26 10^6/uL 4.0-5.4 Hemoglobin 14.7 g/dL 12.0-16.0 Hematocrit 44 % 35-47 Mean Corpuscular Volume 83 fL 80-97 Mean Corpuscular Hemoglobin 28 pg 27-31 Mean Corpuscular HGB Conc 34 g/dL 31-36 Red Cell Distribution Width 14 % 10.5-15 Platelet Count 231 10^3/uL 150-450 Mean Platelet Volume 8 um3 7.4-10.4 Abs Neutrophils 4.6 10^3/uL 1.5-7.7 Abs Lymphocytes 1.5 10^3/uL 1.0-4.8 Abs Monocytes 0.3 10^3/uL 0-0.8 Abs Eosinophils 0.1 10^3/uL 0-0.6 Abs Basophils 0 10^3/uL 0-0.2 Abs Nucleated RBC 0 10^3/uL Granulocyte % 69.5 % 38-83 Lymphocyte % 23.2 % Low 25-47 Monocyte % 4.8 % 1-9 Eosinophil % 2.0 % 0-6 Basophil % 0.5 % 0-2 Nucleated Red Blood Cells % 0.1 Laboratory test finding 07/16/2016 Troponin-I (TnI) 0.01 ng/mL <0.04 17 Basic Metabolic Panel 06/21/2016 Sodium 139 mmol/L 133-145 Potassium 4.0 mmol/L 3.5-5.0 Chloride 103 mmol/L 101-111 Co2 Carbon Dioxide 30 mmol/L 22-32 Anion Gap 6 mmol/L 2-11 Glucose 97 mg/dL 70-100 Blood Urea Nitrogen 10 mg/dL 6-24 Creatinine 0.75 mg/dL 0.51-0.95 BUN/Creatinine Ratio 13.3 8-20 Calcium 9.3 mg/dL 8.6-10.3 Egfr Non- 76.2 >60 Egfr 98.0 >60 18 Lipid Profile (Trig/Chol/HDL) 06/21/2016 Triglycerides 249 mg/dL 19 Cholesterol 245 mg/dL 20 HDL Cholesterol 44.6 mg/dL 21 LDL Cholesterol 151 mg/dL 22 Ua Routine 04/29/2016 Ua Specific [place] 1000 Ua PH 6 Ua Color yellow/lt pink Ua Appera Cloudy Ua WBC ++ Ua Protein 100++ Ua Glucose neg Ua Ketones neg Ua Bilirubin neg Ua Urobilinogen neg Ua Nitrite neg Ua Occult Blood about 250++ Laboratory test finding 04/29/2016 Cytology Non-[employer] SEE RESULT BELOW 23 Urine Culture And 04/29/2016 Urine Culture SEE RESULT BELOW 24 Sensitivities Ua Routine 12/26/2015 Ua Specific [place] 1000 Ua PH 8 Ua Color yellow Ua Appera clear Ua WBC positive Ua Protein neg Ua Glucose neg Ua Ketones neg Ua Bilirubin neg Ua Urobilinogen normal Ua Nitrite neg Ua Occult Blood about 50 Lipid Profile (Trig/Chol/HDL) 06/20/2015 Triglycerides 219 mg/dL 25 Cholesterol 238 mg/dL 26 HDL Cholesterol 43.1 mg/dL 27 LDL Cholesterol 151 mg/dL 28 Basic Metabolic Panel 06/20/2015 Sodium 138 mmol/L 133-145 Potassium 4.0 mmol/L 3.5-5.0 Chloride 103 mmol/L 101-111 Co2 Carbon Dioxide 30 mmol/L 22-32 Anion Gap 5 mmol/L 2-11 Glucose 100 mg/dL 70-100 Blood Urea Nitrogen 9 mg/dL 6-24 Creatinine 0.73 mg/dL 0.51-0.95 BUN/Creatinine Ratio 12.3 8-20 Calcium 9.2 mg/dL 8.6-10.3 Egfr Non- 78.8 >60 Egfr 101.4 >60 29 Stool For Blood 05/16/2015 Miscellaneous Lab negative X 3 Surgical Pathology 10/05/2014 S RUN DATE: 10/06/ <SEE 30 NOTE> Urinalysis Profile 06/21/2014 Urine Color Yellow 31 Urine Appearance Clear 31 Urine Specific [place] 1.023 1.010-1.030 31 Urine pH 5.0 5-9 31 Urine Urobilinogen Negative Negative 31 Urine Ketones Negative Negative 31 Urine Protein Negative Negative 31 Urine Leukocytes 1+ Negative 31 Urine Blood Negative Negative 31 * * Negative 31, 32 Urine Nitrite Negative Negative 31 Urine Bilirubin Negative Negative 31 Urine Glucose Negative Negative 31 Urine White Blood Cell Trace Absent 31 Urine Red Blood Cell 1+(3-5/hpf) Absent 31 Urine Bacteria Absent Absent 31 Urine Squamous Epithelial Cell Present Absent 31 Vitamin D, 25 Hydroxy 06/21/2014 25-Hydroxy Vitamin D2 <4.0 ng/mL 31 25-Hydroxy Vitamin D3 42 ng/mL 31 25-Hydroxy Vitamin D Total 42 ng/mL 31, 33 Basic Metabolic Panel 06/21/2014 Sodium 138 mmol/L 133-145 31 Potassium 3.6 mmol/L 3.5-5.0 31 Chloride 103 mmol/L 101-111 31 Co2 Carbon Dioxide 28 mmol/L 22-32 31 Anion Gap 7 mmol/L 2-11 31 Glucose 99 mg/dL 70-100 31 Blood Urea Nitrogen 14 mg/dL 6-24 31 Creatinine 0.67 mg/dL 0.51-0.95 31 BUN/Creatinine Ratio 20.9 High 8-20 31 Calcium 9.6 mg/dL 8.6-10.3 31 Egfr Non- 87.3 >60 31 Egfr 112.2 >60 31, 34 Lipid Profile (Trig/Chol/HDL) 06/21/2014 Triglycerides 207 mg/dL 31, 35 Cholesterol 231 mg/dL 31, 36 HDL Cholesterol 43.3 mg/dL 31, 37 LDL Cholesterol 146 mg/dL 31, 38 Urine Culture And 06/21/2014 Urine Culture (SEE NOTE) 39 Sensitivities CBC Auto Diff 06/21/2014 White Blood Count 6.7 10^3/uL 4.8-10.8 31 Red Blood Count 5.28 10^6/uL 4.0-5.4 31 Hemoglobin 15.6 g/dL 12.0-16.0 31 Hematocrit 46 % 35-47 31 Mean Corpuscular Volume 87 fL 80-97 31 Mean Corpuscular Hemoglobin 30 pg 27-31 31 Mean Corpuscular HGB Conc 34 g/dL 31-36 31 Red Cell Distribution Width 14 % 10.5-15 31 Platelet Count 314 10^3/uL 150-450 31 Mean Platelet Volume 8 um3 7.4-10.4 31 Abs Neutrophils 4.5 10^3/uL 1.5-7.7 31 Abs Lymphocytes 1.6 10^3/uL 1.0-4.8 31 Abs Monocytes 0.4 10^3/uL 0-0.8 31 Abs Eosinophils 0.2 10^3/uL 0-0.6 31 Abs Basophils 0 10^3/uL 0-0.2 31 Abs Nucleated RBC 0 10^3/uL 31 Granulocyte % 67.4 % 38-83 31 Lymphocyte % 23.6 % Low 25-47 31 Monocyte % 5.3 % 1-9 31 Eosinophil % 3.1 % 0-6 31 Basophil % 0.6 % 0-2 31 Nucleated Red Blood Cells % 0 31 Urine Culture And Sensitivities 06/15/2013 Urine Culture (SEE NOTE) 40 Ua Routine 06/15/2013 Ua Specific [place] 1.005 Ua PH 5 Ua Color yellow Ua Appera cloudy Ua WBC moderate Ua Protein neg Ua Glucose neg Ua Ketones tr Ua Bilirubin sm Ua Urobilinogen neg Ua Nitrite neg Ua Occult Blood nht Basic Metabolic Panel 03/17/2013 Sodium 137 mmol/L 133-145 Potassium 4.1 mmol/L 3.5-5.0 Chloride 103 mmol/L 101-111 Co2 Carbon Dioxide 26.0 mmol/L 22-32 Anion Gap 8.0 mmol/L 2-11 Glucose 93 mg/dL 70-100 Blood Urea Nitrogen 8 mg/dL 6-24 Creatinine 0.60 mg/dL 0.50-1.40 BUN/Creatinine Ratio 13.3 8-20 Calcium 9.4 mg/dL 8.1-9.9 Egfr Non- 99.7 >60 Egfr 128.2 >60 41 Lipid Profile (Trig/Chol/HDL) 03/17/2013 Triglycerides 272 mg/dL High 40- 200 Cholesterol 250 mg/dL High Less than 200 HDL Cholesterol 52 mg/dL 40-60 42 Cholesterol/HDL Ratio 4.8 Average High 1-4.44 LDL Cholesterol 143.6 High Less Than 100 43 Surgical Pathology 12/01/2012 S RUN DATE: 12/02/ <SEE 44 NOTE> Laboratory test finding 06/25/2012 Stool Culture (SEE NOTE) 45 Fecal Lactoferrin (Stool WBC) (SEE NOTE) 46 O P: Giardia/Cryptospor Screen (SEE NOTE) 47 Lipid Panel - [facility] 12/17/2011 CPK (Creatine Kinase) 65 U/L 0-170 Comp Metabolic Panel 12/17/2011 Sodium 137 mmol/L 135-145 Potassium 4.5 mmol/L 3.5-5.0 Chloride 102 mmol/L 101-111 Co2 (Carbon Dioxide) 31.0 mmol/L 22-32 Anion Gap 4.0 mmol/L 2-11 48 Glucose 101 mg/dL High 70-100 BUN 14 mg/dL 6-24 Creatinine 0.7 mg/dL 0.50-1.40 One Over Creatinine 1.42 BUN/Creatinine Ratio 20.0 8-20 Calcium 8.8 mg/dL 8.1-9.9 Total Protein 5.9 GM/DL Low 6.2-8.1 Albumin 3.8 GM/DL 3.2-5.2 Globulin 2.1 GM/DL 2-4 Albumin/Globulin Ratio 1.8 1-3 Bilirubin Total 0.7 mg/dL 0.4-1.5 49 Alkaline Phosphatase 50 U/L 30-110 Alt (SGPT) 20 U/L 14-54 Ast (Sgot) 21 U/L 12-42 eGFR Non- 83.7 > 60 eGFR 107.7 > 60 50 Lipid Profile (Trig/Chol/HDL) 12/17/2011 Triglyceride 130 mg/dL 40-200 Cholesterol 224 mg/dL High Less Than 200 51 High Density Lipoprotein 53 mg/dL 40-60 52 Cholesterol/HDL Ratio 4.23 AVERAGE 1-4.44 Low Density Lipoprotein 145 mg/dL High Less Than 100 53 Laboratory test 12/17/2011 Hemoglobin A1c 5.3 % Less Than 6.0 54 finding Laboratory test 07/16/2011 C Reactive Protein < 0.5 mg/dL Less Than 0.5 finding Erythrocyte Sed Rate 8 MM/HR 0-40 Lyme Disease AB Conf. 07/16/2011 Lyme Igg Western Blot Negative Negative West.Blot Lyme Igg Bands Detected p41, p23, p18, kDa () Lyme Igm Western Blot Negative Negative Lyme Igm Bands Detected p39, kDa () Lyme Disease Interpretation . () 55 Ehrlichia Igg & 01/20/2011 Anaplasma Phagocytophilum <1:64 titer & lt;1:64 56 Igm Abs AB Ehrlichia Chaffeensis <1:64 titer <1:64 57 Syphilis Screen 01/20/2011 Syphilis IgG NON-REACTIVE Nonreactive 58 RPR TNP Nonreactive Pediatric/Maternal NO Anaerobic Culture Bottle 01/19/2011 Anaerobic Culture Bottle [id number] 59 Blood Culture 01/19/2011 Aerobic Culture Bottle NG5 60 Laboratory test finding 01/19/2011 Lyme Disease Serology Positive Negative 61 Lyme Disease AB Conf. 01/19/2011 Lyme Igg Western Blot Negative Negative West.Blot Lyme Igg Bands Detected p41,p23 kDa () Lyme Igm Western Blot Positive Negative Lyme Igm Bands Detected p41,p39,p23 kDa () Lyme Disease Interpretation . () 62 Urine Culture & 01/19/2011 Urine Culture Sensitivi NF1 63 Sensitivi Urinalysis W/Microscopic 01/19/2011 Ua Color YELLOW Yellow Appearance-Urine CLEAR Clear Specific [place]-Ur 1.005 Low 1.010-1.030 Esterase-Urine TRACE Negative Nitrite NEGATIVE Negative [id number] NEGATIVE Negative Protein-Urine NEGATIVE Negative PH-Urine 7.0 5-9 Blood-Urine NEGATIVE Negative Ketones-Urine NEGATIVE Negative Bilirubin-Ur NEGATIVE Negative Glucose-Urine NEGATIVE Negative WBC-Urine 0-2 0-5 RBC-Urine 0-2 0-2 Epith Cells-Ur RARE None Laboratory test finding 01/19/2011 C Reactive Protein 5.5 mg/dL High Less Than 0.5 Comp Metabolic Panel 01/19/2011 Sodium 136 mmol/L 135-145 Potassium 3.8 mmol/L 3.5-5.0 Chloride 100 mmol/L Low 101-111 Co2 (Carbon Dioxide) 26.0 mmol/L 22-32 Anion Gap 10.0 mmol/L 2-11 64 Glucose 121 mg/dL High 70-100 BUN 7 mg/dL 6-24 Creatinine 0.70 mg/dL 0.50-1.40 One Over Creatinine 1.40 BUN/Creatinine Ratio 10.0 8-20 Calcium 8.5 mg/dL 8.1-9.9 Total Protein 6.1 GM/DL Low 6.2-8.1 Albumin 2.9 GM/DL Low 3.2-5.2 Globulin 3.2 GM/DL 2-4 Albumin/Globulin Ratio 0.9 Low 1-3 Bilirubin Total 0.5 mg/dL 0.4-1.5 65 Alkaline Phosphatase 87 U/L 30-110 Alt (SGPT) 36 U/L 14-54 Ast (Sgot) 40 U/L 12-42 eGFR Non- 84.0 > 60 eGFR 108.0 > 60 66 Manual Differential 01/19/2011 Polysegmented Neutrophil 92 % High 38-83 Lymphocyte 4 % Low 25-47 Monocyte 4 % 0-13 Absolute Neutrophil Count 11.4 RBC Morphology NORMAL CBC Auto Diff 01/19/2011 White Blood Count 12.4 CUMM High 4.8-10.8 Red Cell Count 4.69 CUMM 4.2-5.4 Hemoglobin 13.8 g/dL 12.0-16.0 Hematocrit 40 % 35-47 Mean Corpuscular Volume 86 um3 79-97 Mean Corpuscular Hemoglob 30 pg 27-31 Mean Corpuscular HGB Cone 34 g/dL 32-36 Redcell Distribution WDTH 14 % 10.5-15 Platelet Count 194 CUMM 150-450 Mean Platelet Volume 8.1 um3 7.4-10.4 67 Laboratory test finding 01/19/2011 Monospot NEGATIVE Negative Laboratory test finding 01/18/2011 Aso (Anti Streptolysis 3200 IU High 0- 199 68 O) Erythrocyte Sed Rate 46 MM/HR High 0-40 Throat Culture Full NF 69 CBC Auto Diff 01/17/2011 White Blood Count 9.6 CUMM 4.8-10.8 Red Cell Count 4.92 CUMM 4.2-5.4 Hemoglobin 14.0 g/dL 12.0-16.0 Hematocrit 43 % 35-47 Mean Corpuscular Volume 87 um3 79-97 Mean Corpuscular Hemoglob 29 pg 27-31 Mean Corpuscular HGB Cone 33 g/dL 32-36 Redcell Distribution WDTH 14 % 10.5-15 Platelet Count 234 CUMM 150-450 Mean Platelet Volume 8.4 um3 7.4-10.4 Gran % 87.0 % High 38-83 Lymph % 7.8 % Low 25-47 Mononuclear % 3.4 % 1-9 Eosinophil % 1.5 % 0-6 Basophil % 0.3 % 0-2 Abs Lymphs 0.7 Low 1.0-4.8 Abs Mononuclear 0.3 0-0.8 Absolute Neutrophil Count 8.3 High 1.5-7.7 Abs Eosinophils 0.1 0-0.6 Abs Basophils 0 0-0.2 70 Comp Metabolic Panel 01/17/2011 Sodium 138 mmol/L 135-145 Potassium 4.6 mmol/L 3.5-5.0 Chloride 101 mmol/L 101-111 Co2 (Carbon Dioxide) 31.0 mmol/L 22-32 Anion Gap 6.0 mmol/L 2-11 71 Glucose 110 mg/dL High 70-100 BUN 4 mg/dL Low 6-24 Creatinine 0.70 mg/dL 0.50-1.40 One Over Creatinine 1.40 BUN/Creatinine Ratio 5.7 Low 8-20 Calcium 8.7 mg/dL 8.1-9.9 Total Protein 5.8 GM/DL Low 6.2-8.1 Albumin 3.1 GM/DL Low 3.2-5.2 Globulin 2.7 GM/DL 2-4 Albumin/Globulin Ratio 1.1 1-3 Bilirubin Total 0.7 mg/dL 0.4-1.5 72 Alkaline Phosphatase 85 U/L 30-110 Alt (SGPT) 21 U/L 14-54 Ast (Sgot) 15 U/L 12-42 eGFR Non- 84.0 > 60 eGFR 108.0 > 60 73 Urinalysis W/Microscopic 01/17/2011 Ua Color YELLOW Yellow Appearance-Urine CLEAR Clear Specific [place]-Ur 1.010 1.010-1.030 Esterase-Urine NEGATIVE Negative Nitrite NEGATIVE Negative [id number] NEGATIVE Negative Protein-Urine NEGATIVE Negative PH-Urine 7.0 5-9 Blood-Urine TRACE Negative Ketones-Urine NEGATIVE Negative Bilirubin-Ur NEGATIVE Negative Glucose-Urine NEGATIVE Negative WBC-Urine RARE 0-5 RBC-Urine 0-2 0-2 Epith Cells-Ur FEW None CBC Auto Diff 01/10/2011 White Blood Count 7.4 CUMM 4.8-10.8 Red Cell Count 5.22 CUMM 4.2-5.4 Hemoglobin 15.0 g/dL 12.0-16.0 Hematocrit 45 % 35-47 Mean Corpuscular Volume 86 um3 79-97 Mean Corpuscular Hemoglob 29 pg 27-31 Mean Corpuscular HGB Cone 34 g/dL 32-36 Redcell Distribution WDTH 14 % 10.5-15 Platelet Count 463 CUMM High 150-450 Mean Platelet Volume 7.6 um3 7.4-10.4 Gran % 68.3 % 38-83 Lymph % 20.7 % Low 25-47 Mononuclear % 8.2 % 1-9 Eosinophil % 2.3 % 0-6 Basophil % 0.5 % 0-2 Abs Lymphs 1.5 1.0-4.8 Abs Mononuclear 0.6 0-0.8 Absolute Neutrophil Count 5.1 1.5-7.7 Abs Eosinophils 0.2 0-0.6 Abs Basophils 0 0-0.2 Liver Function Panel 01/10/2011 Total Protein 6.0 GM/DL Low 6.2-8.1 Albumin 3.5 GM/DL 3.2-5.2 Globulin 2.5 GM/DL 2-4 Albumin/Globulin Ratio 1.4 1-3 Bilirubin Total 0.5 mg/dL 0.4-1.5 74 Bilirubin Direct 0.2 mg/dL 0.1-0.5 Indirect Bilirubin 0.3 mg/dL 0.3-1.0 75 Alkaline Phosphatase 106 U/L 30-110 Alt (SGPT) 63 U/L High 14-54 Ast (Sgot) 26 U/L 12-42 Laboratory test finding 01/04/2011 CMV Igg <4 AU/mL <4 76 Joaquin Badillo Comprehensive 01/04/2011 Ebv Vca Igg Positive Negative Ebv Vca Igm Negative Negative Ebna Negative Negative Ebv Interpretation . () 77 Laboratory test finding 01/04/2011 Erythrocyte Sed Rate 54 MM/HR High 0- 40 C Reactive Protein 9.1 mg/dL High Less Than 0.5 Comp Metabolic Panel 01/04/2011 Sodium 135 mmol/L 135-145 Potassium 3.6 mmol/L 3.5-5.0 Chloride 98 mmol/L Low 101-111 Co2 (Carbon Dioxide) 29.0 mmol/L 22-32 Anion Gap 8.0 mmol/L 2-11 78 Glucose 106 mg/dL High 70-100 BUN 8 mg/dL 6-24 Creatinine 0.50 mg/dL 0.50-1.40 One Over Creatinine 2.00 BUN/Creatinine Ratio 16.0 8-20 Calcium 9.0 mg/dL 8.1-9.9 Total Protein 5.5 GM/DL Low 6.2-8.1 Albumin 3.1 GM/DL Low 3.2-5.2 Globulin 2.4 GM/DL 2-4 Albumin/Globulin Ratio 1.3 1-3 Bilirubin Total 0.6 mg/dL 0.4-1.5 79 Alkaline Phosphatase 179 U/L High 30-110 Alt (SGPT) 215 U/L High 14-54 Ast (Sgot) 58 U/L High 12-42 eGFR Non- 123.8 > 60 eGFR 159.2 > 60 80 Anaerobic Culture Bottle 01/02/2011 Anaerobic Culture Bottle NG5 81 Blood Culture 01/02/2011 Aerobic Culture Bottle NG5 82 Comp Metabolic Panel 01/02/2011 Sodium 134 mmol/L Low 135-145 Potassium 3.5 mmol/L 3.5-5.0 Chloride 98 mmol/L Low 101-111 Co2 (Carbon Dioxide) 27.0 mmol/L 22-32 Anion Gap 9.0 mmol/L 2-11 83 Glucose 150 mg/dL High 70-100 BUN 9 mg/dL 6-24 Creatinine 1.10 mg/dL 0.50-1.40 One Over Creatinine 0.90 BUN/Creatinine Ratio 8.2 8-20 Calcium 8.3 mg/dL 8.1-9.9 Total Protein 5.7 GM/DL Low 6.2-8.1 Albumin 3.2 GM/DL 3.2-5.2 Globulin 2.5 GM/DL 2-4 Albumin/Globulin Ratio 1.3 1-3 Bilirubin Total 0.5 mg/dL 0.4-1.5 84 Alkaline Phosphatase 160 U/L High 30-110 Alt (SGPT) 286 U/L High 14-54 Ast (Sgot) 246 U/L High 12-42 eGFR Non- 49.8 > 60 eGFR 64.1 > 60 85 CBC Auto Diff 01/02/2011 White Blood Count 5.9 CUMM 4.8-10.8 Red Cell Count 4.70 CUMM 4.2-5.4 Hemoglobin 14.0 g/dL 12.0-16.0 Hematocrit 40 % 35-47 Mean Corpuscular Volume 86 um3 79-97 Mean Corpuscular Hemoglob 30 pg 27-31 Mean Corpuscular HGB Cone 35 g/dL 32-36 Redcell Distribution WDTH 14 % 10.5-15 Platelet Count 158 CUMM 150-450 Mean Platelet Volume 7.7 um3 7.4-10.4 Gran % 88.6 % High 38-83 Lymph % 6.3 % Low 25-47 Mononuclear % 5.0 % 1-9 Eosinophil % 0.1 % 0-6 Basophil % 0 % 0-2 Abs Lymphs 0.4 Low 1.0-4.8 Abs Mononuclear 0.3 0-0.8 Absolute Neutrophil Count 5.3 1.5-7.7 Abs Eosinophils 0 0-0.6 Abs Basophils 0 0-0.2 86 Hepatitis Acute Panel 01/02/2011 Hepatitis A AB Igm Nonreactive Nonreactive Hepatitis B Core Igm Nonreactive Nonreactive Hepatitis B Surface Ag Nonreactive Nonreactive Hepatitis C Antibody Nonreactive Nonreactive Laboratory test finding 01/02/2011 Amylase 25 U/L 20-120 87 Lipase 22 U/L 22-51 C Reactive Protein 11.0 mg/dL High Less Than 0.5 Laboratory test finding 12/10/2010 Glucose 105 mg/dL High 70-100 Hemoglobin A1c 5.5 % Less Than 6.0 88 Lipid Profile (Trig/Chol/HDL) 12/10/2010 Triglyceride 87 mg/dL 40-200 Cholesterol 223 mg/dL High Less Than 200 89 High Density Lipoprotein 51 mg/dL 40-60 90 Cholesterol/HDL Ratio 4.37 AVERAGE 1-4.44 Low Density Lipoprotein 155 mg/dL High Less Than 100 91 CBC With Electronic Diff 08/09/2010 White Blood Count 5.1 CUMM 4.8-10.8 Red Cell Count 5.05 CUMM 4.2-5.4 Hemoglobin 14.8 g/dL 12.0-16.0 Hematocrit 44 % 35-47 Mean Corpuscular Volume 86 um3 79-97 Mean Corpuscular Hemoglob 29 pg 27-31 Mean Corpuscular HGB Cone 34 g/dL 32-36 Redcell Distribution WDTH 14 % 10.5-15 Platelet Count 234 CUMM 150-450 Mean Platelet Volume 8.6 um3 7.4-10.4 Gran % 67.1 % 38-83 Lymph % 25.4 % 25-47 Mononuclear % 5.2 % 1-9 Eosinophil % 2.0 % 0-6 Basophil % 0.3 % 0-2 Abs Lymphs 1.3 1.0-4.8 Abs Mononuclear 0.3 0-0.8 Absolute Neutrophil Count 3.4 1.5-7.7 Abs Eosinophils 0.1 0-0.6 Abs Basophils 0 0-0.2 Basic Metabolic Panel 08/09/2010 Sodium 138 mmol/L 135-145 Potassium 4.5 mmol/L 3.5-5.0 Chloride 103 mmol/L 101-111 Co2 (Carbon Dioxide) 27.0 mmol/L 22-32 Anion Gap 8.0 mmol/L 2-11 92 Glucose 98 mg/dL 70-100 BUN 9 mg/dL 6-24 Creatinine 0.80 mg/dL 0.50-1.40 One Over Creatinine 1.20 BUN/Creatinine Ratio 11.3 8-20 Calcium 9.3 mg/dL 8.1-9.9 eGFR Non- 72.0 > 60 eGFR 92.6 > 60 93 Liver Function Panel 03/21/2010 Total Protein 6.1 GM/DL Low 6.2-8.1 Albumin 3.8 GM/DL 3.2-5.2 Globulin 2.3 GM/DL 2-4 Albumin/Globulin Ratio 1.7 1-3 Bilirubin Total 0.7 mg/dL 0.4-1.5 94 Bilirubin Direct 0.1 mg/dL 0.1-0.5 Indirect Bilirubin 0.6 mg/dL 0.3-1.0 95 Alkaline Phosphatase 62 U/L 30-110 Alt (SGPT) 21 U/L 14-54 Ast (Sgot) 20 U/L 12-42 Basic Metabolic Panel 03/21/2010 Sodium 139 mmol/L 135-145 Potassium 4.1 mmol/L 3.5-5.0 Chloride 104 mmol/L 101-111 Co2 (Carbon Dioxide) 31.0 mmol/L 22-32 Anion Gap 4.0 mmol/L 2-11 96 Glucose 125 mg/dL High 70-100 97 BUN 11 mg/dL 6-24 Creatinine 0.80 mg/dL 0.50-1.40 One Over Creatinine 1.20 BUN/Creatinine Ratio 13.8 8-20 Calcium 9.0 mg/dL 8.1-9.9 eGFR Non- 76.8 > 60 eGFR 92.9 > 60 98 Lipid Profile (Trig/Chol/HDL) 03/21/2010 Triglyceride 190 mg/dL 40-200 Cholesterol 251 mg/dL High Less Than 200 99 High Density Lipoprotein 48 mg/dL 40-60 100 Cholesterol/HDL Ratio 5.23 AVERAGE High 1-4.44 Low Density Lipoprotein 165 mg/dL High Less Than 100 101 Urinalysis W/Microscopic 01/17/2010 Ua Color YELLOW Yellow Appearance-Urine CLEAR Clear Specific Ashmore-Ur 1.010 1.010-1.030 Esterase-Urine 1+ Negative Nitrite NEGATIVE Negative Nvabayqymmdr-Tz-MWK NEGATIVE Negative Protein-Urine NEGATIVE Negative PH-Urine 7.0 5-9 Blood-Urine NEGATIVE Negative Ketones-Urine NEGATIVE Negative Bilirubin-Ur NEGATIVE Negative Glucose-Urine NEGATIVE Negative WBC-Urine 5-10 0-5 RBC-Urine 0-2 0-2 Epith Cells-Ur MODERATE None Urine Culture & 01/17/2010 Urine Culture SN1 102 Sensitivi Sensitivi Laboratory test 10/20/2008 Clotest N^NEGATIVE^SILVIA finding Surgical Pathology 10/20/2008 Surgical Pathology 103 <SEE NOTE> CBC With Electronic 06/27/2008 White Blood Count 6.6 CUMM 4.8-10.8 Diff Red Cell Count 5.27 CUMM 4.2-5.4 Hemoglobin 15.2 g/dL 12.0-16.0 Hematocrit 44 % 35-47 Mean Corpuscular Volume 83 um3 79-97 Mean Corpuscular Hemoglob 29 pg 27-31 Mean Corpuscular HGB Cone 35 g/dL 32-36 Redcell Distribution WDTH 13 % 10.5-15 Platelet Count 314 CUMM 150-450 Mean Platelet Volume 7.3 um3 Low 7.4-10.4 Gran % 68.3 % 38-83 Lymph % 23.3 % Low 25-47 Mononuclear % 5.6 % 1-9 Eosinophil % 2.4 % 0-6 Basophil % 0.4 % 0-2 Abs Lymphs 1.5 1.0-4.8 Abs Mononuclear 0.4 0-0.8 Absolute Neutrophil Count 4.5 1.5-7.7 Abs Eosinophils 0.2 0-0.6 Abs Basophils 0 0-0.2 Laboratory test 06/27/2008 C Reactive Protein < 0.5 mg/dL Less Than 0.5 finding Basic Metabolic Panel 06/27/2008 Sodium 140 mmol/L 135-145 Potassium 4.3 mmol/L 3.5-5.0 Chloride 104 mmol/L 101-111 Co2 (Carbon Dioxide) 29.0 mmol/L 22-32 Anion Gap 7.0 mmol/L 2-11 104 Glucose 85 mg/dL 70-100 105 BUN 12 mg/dL 6-24 Creatinine 0.90 mg/dL 0.50-1.40 One Over Creatinine 1.10 BUN/Creatinine Ratio 13.3 8-20 Calcium 9.2 mg/dL 8.1-9.9 106 Laboratory test finding 02/04/2008 Erythrocyte Sed Rate 9 MM/HR 0-30 Laboratory test finding 12/08/2007 TSH 1.33 MIU/ML 0.34-5.60 Thyroxine Free 0.72 NG/ML 0.61-1.24 107 CBC With Manual Diff 12/08/2007 White Blood Count 5.8 CUMM 4.8-10.8 Red Cell Count 5.13 CUMM 4.2-5.4 Hemoglobin 14.9 g/dL 12.0-16.0 Hematocrit 43 % 35-47 Mean Corpuscular Volume 83 um3 79-97 Mean Corpuscular Hemoglob 29 pg 27-31 Mean Corpuscular HGB Cone 35 g/dL 32-36 Redcell Distribution WDTH 14 % 10.5-15 Platelet Count 282 CUMM 150-450 Mean Platelet Volume 8.1 um3 7.4-10.4 Polysegmented Neutrophil 80 % 38-83 Band Neutrophil 1 % 0-8 Lymphocyte 8 % 5-47 Monocyte 7 % 0-13 Eosenophil 4 % 0-6 Absolute Neutrophil Count 4.6 Anisocytosis SLIGHT Basic Metabolic Panel 12/08/2007 Sodium 136 mmol/L 135-145 Potassium 4.0 mmol/L 3.5-5.0 Chloride 107 mmol/L 101-111 Co2 (Carbon Dioxide) 28.0 mmol/L 22-32 Anion Gap 1.0 mmol/L Low 2-11 108 Glucose 88 mg/dL 70-105 BUN 13 mg/dL 6-24 Creatinine 0.9 mg/dL 0.5-1.4 One Over Creatinine 1.11 BUN/Creatinine Ratio 14.4 8-20 Calcium 8.5 mg/dL Low 8.7-10.2 Vitamin B12 And Folate Serum 12/08/2007 Vitamin B12 729 pg/mL 180-914 Folic Acid 17.9 NG/ML High 2-16 1 Desirable: <150 Borderline High: 150-199 High: 200-499 Very High: >500 2 Desirable: <200 Borderline High: 200-239 High: >239 3 Low: <40 Desirable: 40-60 High: >60 4 Desirable: <100 Near Optimal: 100-129 Borderline High: 130-159 High: 160-189 Very High: >189 5 Because ethnic data is not always readily available, this report includes an eGFR for both -Americans and non- Americans. The National Kidney Disease Education Program (NKDEP) does not endorse the use of the MDRD equation for patients that are not between the ages of 18 and 70, are , have extremes of body size, muscle mass, or nutritional status, or are non- or non-. According to the National Kidney Foundation, irrespective of diagnosis, the stage of the disease is based on the level of kidney function: Stage Description GFR(mL/min/1.73 m(2)) 1 Kidney damage with normal or decreased GFR 90 2 Kidney damage with mild decrease in GFR 60-89 3 Moderate decrease in GFR 30-59 4 Severe decrease in GFR 15-29 5 Kidney failure <15 (or dialysis) 6 FASTING 10 HOUR 7 Desirable <150 Borderline high 150-199 High 200-499 Very High >500 8 Desirable <200 Borderline high 200-239 High >239 9 Low <40 Desirable: 40-60 High: >60 10 Desirable: <100 mg/dL Near Optimal: 100-129 mg/dL Borderline High: 130-159 mg/dL High: 160-189 mg/dL Very High: >189 mg/dL 11 [id number] 12 SEE RESULT BELOW Name: ALISON HUBBARD: [address]: Jess Johnson MD Acct: [id number] Unit: [id number] AGE: 71 Location: [facility] Re12/17/16 SEX: F Status: REG REF SPEC: [id number] LANDON: 12/17/16-[address]: Chano Johnson MD REQ: [id number] RECD: 12/17/16 STATUS: COMP _ SOURCE: URINE SPDESC: ORDERED: Urine Culture COMMENTS: [id number] Urine Source: Random Procedure Result Reported Site Urine Culture Final 12/20/16- 722 ML Organism 1 ESCHERICHIA COLI [place] Count 25-50,000 (Moderate) CFU/ML 1. ESCHERICHIA COLI M.I.C. RX --------- ------ Ampicillin >=32 R Cefazolin <=4 S Cefepime <=1 S Ceftriaxone <=1 S Ciprofloxacin >=4 R Gentamicin <=1 S Levofloxacin 4 I Meropenem <=0.25 S Nitrofurantoin <=16 S Tetracycline <=1 S Pipercillin/Tazobactam <=4 S Trimethoprim/Sulfamethoxazole <=20 S Amoxicillin/Clavulanic Acid 4 S Aztreonam <=1 S Contact the Microbiology Department for any additional antibiotic reporting. * ML - [facility] . END OF REPORT * ML=Testing performed at Main Lab DEPARTMENT OF PATHOLOGY, [address] [place] [address] Georges Case M.D. Director [facility] # [id number] 13 99th percentile=0.04 ng/mL Troponin results at [facility] and [facility] are not interchangeable. 14 Because ethnic data is not always readily available, this report includes an eGFR for both -Americans and non- Americans. The National Kidney Disease Education Program (NKDEP) does not endorse the use of the MDRD equation for patients that are not between the ages of 18 and 70, are , have extremes of body size, muscle mass, or nutritional status, or are non- or non-. According to the National Kidney Foundation, irrespective of diagnosis, the stage of the disease is based on the level of kidney function: Stage Description GFR(mL/min/1.73 m(2)) 1 Kidney damage with normal or decreased GFR 90 2 Kidney damage with mild decrease in GFR 60-89 3 Moderate decrease in GFR 30-59 4 Severe decrease in GFR 15-29 5 Kidney failure <15 (or dialysis) 15 >100 to <200 pg/mL: likely compensated congestive heart failure (CHF) 200 to 400 pg/mL: likely moderate CHF >400 pg/mL: likely moderate to severe CHF 16 [facility] Severe Sepsis and Septic Shock Management Bundle Measure requires all lactic acids initially measuring >2.0 mmol/L be repeated. 17 99th percentile=0.04 ng/mL Troponin results at [facility] and [facility] are not interchangeable. 18 Because ethnic data is not always readily available, this report includes an eGFR for both -Americans and non- Americans. The National Kidney Disease Education Program (NKDEP) does not endorse the use of the MDRD equation for patients that are not between the ages of 18 and 70, are , have extremes of body size, muscle mass, or nutritional status, or are non- or non-. According to the National Kidney Foundation, irrespective of diagnosis, the stage of the disease is based on the level of kidney function: Stage Description GFR(mL/min/1.73 m(2)) 1 Kidney damage with normal or decreased GFR 90 2 Kidney damage with mild decrease in GFR 60-89 3 Moderate decrease in GFR 30-59 4 Severe decrease in GFR 15-29 5 Kidney failure <15 (or dialysis) 19 Desirable <150 Borderline high 150-199 High 200-499 Very High >500 20 Desirable <200 Borderline high 200-239 High >239 21 Low <40 Desirable: 40-60 High: >60 22 Desirable: <100 mg/dL Near Optimal: 100-129 mg/dL Borderline High: 130-159 mg/dL High: 160-189 mg/dL Very High: >189 mg/dL 23 SEE RESULT BELOW Name: ALISON HUBBARD : [address]: Jhonathan Vasquez NP Acct: [id number] Unit: [id number] AGE: 71 Location: [facility] Re04/29/16 SEX: F Status: REG REF SPEC: [id number] LANDON: 04/29/[address] [facility] [address]: Jhonathan Vasquez PROPERTY ADMINISTRATOR REQ: [id number] RECD: 04/29/16 STATUS: SOUT _ ORDERED: THIN PREP NON G COMMENTS: [id number] FINAL DIAGNOSIS Urine, voided: --Negative for malignant cells, inflammation. URINE VOID GROSS DESCRIPTION 3 mls of cloudy peach colored voided urine. Signed (signature on file) Georges Case MD 1543 END OF REPORT * ML=Testing performed at Main Lab DEPARTMENT OF PATHOLOGY, [address] [place] [address] Georges Case M.D. Director [facility] # [id number] 24 SEE RESULT BELOW Name: ALISON HUBBARD : [address]: Jhonathan Vasquez PROPERTY ADMINISTRATOR Acct: [id number] Unit: [id number] AGE: 71 Location: [facility] Re04/29/16 SEX: F Status: REG REF SPEC: [id number] LANDON: 04/29/[address]: Jhonathan Vasquez NP REQ: [id number] RECD: 04/29/16 STATUS: COMP _ SOURCE: URINE SPDESC: ORDERED: Urine Culture COMMENTS: [id number] Procedure Result Reported Site Urine Culture Final 04/30/16- 1613 ML No Growth (<1,000 CFU/mL) * ML - [facility] . END OF REPORT * ML=Testing performed at Main Lab DEPARTMENT OF PATHOLOGY, [facility] [employer] [place], [place] [address] Georges Case M.D. Director [facility] # [id number] 25 Desirable <150 Borderline high 150-199 High 200-499 Very High >500 26 Desirable <200 Borderline high 200-239 High >239 27 Low <40 Desirable: 40-60 High: >60 28 Desirable: <100 mg/dL Near Optimal: 100-129 mg/dL Borderline High: 130-159 mg/dL High: 160-189 mg/dL Very High: >189 mg/dL 29 Because ethnic data is not always readily available, this report includes an eGFR for both -Americans and non- Americans. The National Kidney Disease Education Program (NKDEP) does not endorse the use of the MDRD equation for patients that are not between the ages of 18 and 70, are , have extremes of body size, muscle mass, or nutritional status, or are non- or non-. According to the National Kidney Foundation, irrespective of diagnosis, the stage of the disease is based on the level of kidney function: Stage Description GFR(mL/min/1.73 m(2)) 1 Kidney damage with normal or decreased GFR 90 2 Kidney damage with mild decrease in GFR 60-89 3 Moderate decrease in GFR 30-59 4 Severe decrease in GFR 15-29 5 Kidney failure <15 (or dialysis) 30 RUN DATE: 10/06/14 [facility] LAB LIVE PAGE 1 RUN TIME: 1825 [facility] [employer] [place], [place] [address] Specimen Inquiry Name: ALISON HUBBARD : [address]: Easton Mukherjee MD Acct: [id number] Unit: [id number] AGE: 69 Location: [place] Re10/05/14 SEX: F Status: REG [facility] SPEC: [id number] LANDON: 10/05/14-[address]: Easton Mukherjee MD REQ: [id number] RECD: 10/05/14 STATUS: SOUT _ ORDERED: LEVEL I FINAL DIAGNOSIS Left ankle, hardware removal: Foreign body (orthopedic hardware) (Gross diagnosis). CLINICAL HISTORY No history given GROSS DESCRIPTION The specimen is received fresh labeled, Left Ankle Hardware (For Gross Only) , and consists of two silver metallic threaded Dionicio-headed screws measuring 4.5 x 0.2 cm and 5.0 x 0.2 cm. Per established hospital medical staff protocol, no tissue is submitted. Gross only. Signed (signature on file) Serina Dover MD 08/21 1826 END OF REPORT * ML=Testing performed at Main Lab DEPARTMENT OF PATHOLOGY, [address] [place] [address] Georges Case M.D. Director [facility] # [id number] 31 FASTING 32 *Ascorbic acid is present which may interfere with detection of blood. 33 REFERENCE VALUE 25-HYDROXY D TOTAL (D2+D3) Optimum levels in the healthy population are 20-50, patients with bone disease may benefit from higher levels within this range. Test Performed by: [place] [address] [employer]: Wilber Pedroza M.D. 34 Because ethnic data is not always readily available, this report includes an eGFR for both -Americans and non- Americans. The National Kidney Disease Education Program (NKDEP) does not endorse the use of the MDRD equation for patients that are not between the ages of 18 and 70, are , have extremes of body size, muscle mass, or nutritional status, or are non- or non-. According to the National Kidney Foundation, irrespective of diagnosis, the stage of the disease is based on the level of kidney function: Stage Description GFR(mL/min/1.73 m(2)) 1 Kidney damage with normal or decreased GFR 90 2 Kidney damage with mild decrease in GFR 60-89 3 Moderate decrease in GFR 30-59 4 Severe decrease in GFR 15-29 5 Kidney failure <15 (or dialysis) 35 Desirable <150 Borderline high 150-199 High 200-499 Very High >500 36 Desirable <200 Borderline high 200-239 High >239 37 Low <40 Desirable: 40-60 High: >60 38 Desirable <100 Near Optimal 100-129 Borderline high 130-159 High 160-189 Very High >189 39 RUN DATE: 06/23/14 [facility] LAB LIVE PAGE 1 RUN TIME: [address] [place], [place] [address] Specimen Inquiry Name: ALISON HUBBARD : [address]: Jess Johnson MD Acct: [id number] Unit: [id number] AGE: 69 Location: LAB Re06/21/14 SEX: F Status: REG REF SPEC: [id number] LANDON: 06/21/14-[address]: Chano Johnson MD REQ: [id number] RECD: 06/21/14124 STATUS: BETTINA RODRIGUEZ DR: Easton Mukherjee MD _ SOURCE: URINE SPDESC: ORDERED: Urine Culture QUERIES: Medent Number [id number] Procedure Result Verified Site Urine Culture Final 06/23/14- 1108 ML Organism 1 NORMAL RUSTY [place] Count 25-50,000 (Moderate) CFU/ML END OF REPORT * ML=Testing performed at Main Lab DEPARTMENT OF PATHOLOGY, [facility] [employer] [place], [place] [address] Georges Case M.D. Director [facility] # [id number] 40 RUN DATE: 06/17/13 [facility] LAB LIVE PAGE 1 RUN TIME: 828 [facility] [employer] [place], [place] [address] Specimen Inquiry Name: STEVIEALISON : [address]: Lisa Perdomo MD Acct: [id number] Unit: [id number] AGE: 68 Location: [facility] Re06/15/13 SEX: F Status: REG REF SPEC: [id number] LANDON: 06/15/13-[address] [facility] [address]: Lisa Perdomo MD REQ: [id number] RECD: 06/15/13 STATUS: COMP _ SOURCE: URINE [facility]: ORDERED: Urine Culture QUERIES: Medent Number [id number] Procedure Result Verified Site Urine Culture Final 06/17/13- 828 ML Organism 1 ESCHERICHIA COLI [place] Count >100,000 (Many) CFU/ML Organism 2 STREP GROUP B [place] Count 10-25,000 (Moderate) CFU/ML Susceptibility testing of penicillins and other B-lactams approved by FDA for treatment of Streptococcus pyogenes (Group A Strep) and Streptococcus agalactiae (Group B Strep) is not necessary for clinical purposes and need not be done routinely, since as with vancomycin, resistant strains have not been recognized. (CLSI S304-T52;p.66) Positive isolates will be saved for one week. Please call the Microbiology Laboratory if further susceptibility testing is needed. 1. ESCHERICHIA COLI M.I.C. RX --------- ------ Ampicillin <=2 S Cefazolin <=4 S Cefepime <=1 S Ceftriaxone <=1 S Ciprofloxacin <=0.25 S Gentamicin <=1 S Imipenem <=0.25 S Levofloxacin <=0.12 S Meropenem <=0.25 S Nitrofurantoin <=16 S CONTINUED ON NEXT PAGE * ML=Testing performed at Main Lab DEPARTMENT OF PATHOLOGY, [address], [place], [place] [address] Georges Case M.D. Director [facility] Permit #[id number] RUN DATE: 06/17/13 [facility] LAB LIVE PAGE 2 RUN TIME: [address] [place] [address] Specimen Inquiry Patient: ALISON HUBBARD [id number] (Continued) Specimen: [id number] Collected: 06/15/13 Received: 06/15/13-1821 (Continued) Procedure Result Verified Site Urine Culture Final (continued) 06/17/13828 1. ESCHERICHIA COLI (continued) M.I.C. RX --------- ------ Tetracycline <=1 S Pipercillin/Tazobactam <=4 S Trimethoprim/Sulfamethoxazole <=20 S Amoxicillin/Clavulanic Acid <=2 S Aztreonam <=1 S Contact the Microbiology Department for any additional antibiotic reporting. END OF REPORT * ML=Testing performed at Main Lab DEPARTMENT OF PATHOLOGY, [address] [place] [address] Georges Case M.D. Director [facility] Permit #[id number] 41 Because ethnic data is not always readily available, this report includes an eGFR for both -Americans and non- Americans. The National Kidney Disease Education Program (NKDEP) does not endorse the use of the MDRD equation for patients that are not between the ages of 18 and 70, are , have extremes of body size, muscle mass, or nutritional status, or are non- or non-. According to the National Kidney Foundation, irrespective of diagnosis, the stage of the disease is based on the level of kidney function: Stage Description GFR(mL/min/1.73 m(2)) 1 Kidney damage with normal or decreased GFR 90 2 Kidney damage with mild decrease in GFR 60-89 3 Moderate decrease in GFR 30-59 4 Severe decrease in GFR 15-29 5 Kidney failure <15 (or dialysis) 42 HDL Interpretation: Undesirable: High Risk: Less than 40 mg/dL Desirable: Low Risk: Greater than 60 mg/dL 43 LDL Interpretation: Low Risk Optimal Level: LDL Less than 100 mg/dL Near or Above Optimal: LDL 100-129 mg/dL Borderline High Risk: LDL 130-159 mg/dL High Risk: LDL 160-189 mg/dL Very High Risk: LDL Greater than 189 mg/dL 44 RUN DATE: 12/02/12 [facility] LAB LIVE PAGE 1 RUN TIME: [address] [place], [place] [address] Specimen Inquiry Name: ALISON HUBBARD : [address]: Darren Jaime MD Acct: [id number] Unit: [id number] AGE: 67 Location: ENDO Re12/01/12 SEX: F Status: REG REF SPEC: [id number] LANDON: 12/01/12- [facility] DR: Darren Jaime MD REQ: [id number] RECD: 12/01/12-1242 STATUS: JAKE RODRIGUEZ DR: Chano Johnson MD _ ORDERED: LEVEL IV FINAL DIAGNOSIS Colon, random biopsies: A. Large intestinal mucosa with mild architectural distortion and scattered lamina propria muciphages. B. No active colitis, cryptitis, crypt abscesses, or granulomas identified. C. No evidence of microscopic/lymphocytic colitis identified. COMMENTS: The findings are suggestive a previous and resolving insult. CLINICAL HISTORY Screening colonoscopy with chronic diarrhea POST-OPERATIVE DIAGNOSIS Screening colonoscopy scoped to cecum and terminal ileum - ileocecal valve normal, colonic mucosa normal, random colon biopsy taken. No polyps, irritable bowel disease , or divertics. No mass, rectum normal GROSS DESCRIPTION The specimen is received in formalin labeled Alison Hubbard, Random Colon Biopsies, and consists of multiple hayden, soft tissue fragments measuring 1.3 x 0.4 x 0.2 cm. Submitted entirely, one cassette. Signed (signature on file) Georges Case MD 1341 END OF REPORT * ML=Testing performed at Main Lab DEPARTMENT OF PATHOLOGY, [facility] [employer] [place] [address] Georges Case M.D. Director [facility] Permit #[id number] RUN DATE: 06/29/12 [facility] LAB LIVE PAGE 1 RUN TIME: [address] [place] [address] Specimen Inquiry Name: ALISON HUBBARD : [address]: Alex WILKERSON, Chano Canas Acct: [id number] Unit: [id number] AGE: 67 Location: [facility] Re06/25/12 SEX: F Status: REG REF SPEC: [id number] LANDON: 06/25/12-[address]: Alex WILKERSON,Jess Jerrell Floresita REQ: [id number] RECD: 06/25/121832 STATUS: COMP _ SOURCE: STOOL SPDESC: ORDERED: Stool Culture, Fecal Lactoferr, O P: Giar/Crypt COMMENTS: Unable to Perform Shiga Toxin Testing. Insufficient Growth of Enteric Bacteria. Procedure Result Verified Site Stool Culture Final 06/29/12- 1022 ML Result No growth of normal enteric rusty No enteric pathogens isolated Testing for Salmonella, Shigella, Aeromonas, Plesiomonas, Yersinia and Campylobacter are included in a Stool Culture. Vibrio spp not routinely tested for in a stool culture. If testing is desired, please request specifically when placing test order. Sensitivities not routinely performed on stool isolates, as antibiotics may prolong the carriage rate of bacteria. Please contact the microbiology lab if sensitivities are required. Stool Specimen Description Final 06/25/12- 1354 ML Stool Color Brown Stool Form Semi-formed Stool Consistency Soft Shiga Toxin 1 2 Final 06/28/12- 1338 ML Test not performed Fecal Lactoferrin (Stool WBC) Final 06/25/12- 1528 ML Fecal Lactoferrin Negative by Immunoassay CONTINUED ON NEXT PAGE * ML=Testing performed at Main Lab DEPARTMENT OF PATHOLOGY, [facility] [employer] [place], [place] [address] Georges Case M.D. Director [facility] Permit #[id number] RUN DATE: 06/29/12 [facility] LAB LIVE PAGE 2 RUN TIME: 1023 [facility] [employer] [place], [place] [address] Specimen Inquiry Patient: STEVIEALISON [id number] (Continued) Specimen: [id number] Collected: 06/25/12-999 Received: 06/25/12-1342 (Continued) Procedure Result Verified Site Fecal Lactoferrin (Stool WBC) Final (continued) 06/25/12- 1528 TEST LIMITATIONS: Assay detects elevated levels of lactoferrin released from fecal leukocytes as a marker of intestinal inflammation. The test may not be appropriate in immunocompromised persons. Fecal samples from breast fed infants should not be used with this assay. O P: Giardia/Cryptospor Screen Final 06/26/12- 1331 ML Giardia Antigen Negative by Immunoassay Cryptosporidium Antigen Negative by Immunoassay Giardia and cryptosporidium antigen testing performed by immunoassay. If patient is immunocompromised or has traveled to or is from a developing country, a full ova and parasite exam with microscopic (OPMIC) is recommended. All samples will be held one month in case full ova and parasite testing is requested. Contact the Microbiology Department at [phone]. TEST LIMITATIONS: As with all diagnostic procedures, the results obtained should be used in conjunction with other clinical information available the physician. Negative results can occur in samples containing antigen below lower limits of detection of the assay. The use of colonic washes, aspirates or other diluted sample types has not been established and could affect the performance of the assay. Stool samples contaminated with an oily or particulate base (eg. Barium, mineral oil etc.) could interfere with the test and are not recommended. END OF REPORT * ML=Testing performed at Main Lab DEPARTMENT OF PATHOLOGY, [facility] [employer] [place], [place] [address] Georges Case M.D. Director [facility] Permit #[id number] RUN DATE: 06/25/12 [facility] LAB LIVE PAGE 1 RUN TIME: 5 [employer] [place], [place] [address] Specimen Inquiry Name: ALISON HUBBARD : [address]: Alex WILKERSON, Chano Canas Acct: [id number] Unit: [id number] AGE: 67 Location: [facility] Re06/25/12 SEX: F Status: REG REF SPEC: [id number] LANDON: 06/25/12-[address]: Alex WILKERSON,Jess Canas REQ: [id number] RECD: 06/25/12 STATUS: RES _ SOURCE: STOOL SPDESC: ORDERED: Stool Culture, Fecal Lactoferr, Giardia Antigen, Cryptospor Ag Procedure Result Verified Site Stool Culture PENDING Stool Specimen Description Final 06/25/12- 1354 ML Stool Color Brown Stool Form Semi-formed Stool Consistency Soft Shiga Toxin 1 2 PENDING Fecal Lactoferrin (Stool WBC) Final 06/25/12- 1528 ML Fecal Lactoferrin Negative by Immunoassay TEST LIMITATIONS: Assay detects elevated levels of lactoferrin released from fecal leukocytes as a marker of intestinal inflammation. The test may not be appropriate in immunocompromised persons. Fecal samples from breast fed infants should not be used with this assay. Giardia Antigen Screen PENDING Cryptosporidium Antigen Screen PENDING END OF REPORT * ML=Testing performed at Main Lab DEPARTMENT OF PATHOLOGY, [facility] [employer] [place] [address] Georges Case M.D. Director [facility] Permit #[id number] RUN DATE: 06/26/12 [facility] LAB LIVE PAGE 1 RUN TIME: [address] [place] [address] Specimen Inquiry Name: ALISON HUBBARD : [address]: Alex WILKERSON, Chano Canas Acct: [id number] Unit: [id number] AGE: 67 Location: [facility] Re06/25/12 SEX: F Status: REG REF SPEC: [id number] LANDON: 06/25/12-[address]: Alex WILKERSON,Jess Canas REQ: [id number] RECD: 06/25/12 STATUS: RES _ SOURCE: STOOL SPDESC: ORDERED: Stool Culture, Fecal Lactoferr, O P: Giar/Crypt Procedure Result Verified Site Stool Culture Preliminary 06/26/12- 1243 ML <No reportable results for this procedure> Stool Specimen Description Final 06/25/12- 1354 ML Stool Color Brown Stool Form Semi-formed Stool Consistency Soft Shiga Toxin 1 2 PENDING Fecal Lactoferrin (Stool WBC) Final 06/25/12- 1528 ML Fecal Lactoferrin Negative by Immunoassay TEST LIMITATIONS: Assay detects elevated levels of lactoferrin released from fecal leukocytes as a marker of intestinal inflammation. The test may not be appropriate in immunocompromised persons. Fecal samples from breast fed infants should not be used with this assay. O P: Giardia/Cryptospor Screen Final 06/26/12- 1331 ML Giardia Antigen Negative by Immunoassay Cryptosporidium Antigen Negative by Immunoassay Giardia and cryptosporidium antigen testing performed by immunoassay. If patient is immunocompromised or has traveled to or is from a developing country, a full ova and parasite exam with microscopic (OPMIC) is recommended. All samples will be held one month in case full ova and parasite testing is requested. Contact the Microbiology Department CONTINUED ON NEXT PAGE * ML=Testing performed at Main Lab DEPARTMENT OF PATHOLOGY, [facility] [employer] [place], [place] [address] Georges Case M.D. Director [facility] Permit #[id number] RUN DATE: 06/26/12 [facility] LAB LIVE PAGE 2 RUN TIME: 1331 [facility] [employer] [place], [place] [address] Specimen Inquiry Patient: HUBBARDALISON [id number] (Continued) Specimen: [id number] Collected: 06/25/12-999 Received: 06/25/12-134 (Continued) Procedure Result Verified Site O P: Giardia/Cryptospor Screen Final (continued) 06/26/12- 1331 at [phone]. TEST LIMITATIONS: As with all diagnostic procedures, the results obtained should be used in conjunction with other clinical information available the physician. Negative results can occur in samples containing antigen below lower limits of detection of the assay. The use of colonic washes, aspirates or other diluted sample types has not been established and could affect the performance of the assay. Stool samples contaminated with an oily or particulate base (eg. Barium, mineral oil etc.) could interfere with the test and are not recommended. END OF REPORT * ML=Testing performed at Main Lab DEPARTMENT OF PATHOLOGY, [address] [place] [address] Georges Case M.D. Director [facility] Permit #[id number] 48 Anion gap measurement may be of limited value in the presence of any alkalosis, especially in a combined acid base disorder. . 49 A metabolite of Naproxen, O-desmethylnaproxen, has been shown to interfere with the Jendrgraceik-Petros method for measuring total bilirubin. Samples from patients who have taken Naproxen have shown spurious elevation in total bilirubin levels. 50 Because ethnic data is not always readily available, this report includes an eGFR for both -Americans and non- Americans. The National Kidney Disease Education Program (NKDEP) does not endorse the use of the MDRD equation for patients that are not between the ages of 18 and 70, are , have extremes of body size, muscle mass, or nutritional status, or are non- or non-. According to the National Kidney Foundation, irrespective of diagnosis, the stage of the disease is based on the level of kidney function: Stage Description GFR(mL/min/1.73 m(2)) 1 Kidney damage with normal or decreased GFR 90 2 Kidney damage with mild decrease in GFR 60-89 3 Moderate decrease in GFR 30-59 4 Severe decrease in GFR 15-29 5 Kidney failure <15 (or dialysis) 51 CHOLESTEROL INTERPRETATION: Desirable: Less than 200 MG/DL Borderline-High Risk: 200-239 MG/DL High-Risk: 240 MG/DL and over 52 HDL INTERPRETATION: Undesirable: High Risk: Less than 40 MG/DL Desirable: Low Risk: Greater than 60 MG/DL 53 LDL INTERPRETATION: Low Risk Optimal Level: LDL Less than 100 MG/DL Near or Above Optimal: LDL 100-129 MG/DL Borderline High Risk: LDL 130-159 MG/DL High Risk: LDL 160-189 MG/DL Very High Risk: LDL Greater than 189 MG/DL 54 THERAPEUTIC TARGET FOR THE TREATMENT OF DIABETES MELLITUS PATIENTS IS <7% HBA1C, AND IN SELECTIVE PATIENTS <6.0%. PLEASE REFER TO [employer] DIABETIC CARE GUIDELINES FOR FURTHER INFORMATION. 55 Specific serologic response to B. burgdorferi infection is not detected, but cannot rule out early infection during which low or undetectable antibody levels to B. burgdorferi may be present. If clinically indicated, a new serum specimen should be submitted in 7-14 days. CDC criteria require >=5 bands for IgG or >=2 bands for IgM for the Western blot to be considered positive. Bands (e.g.,p41) may be detected in patients without Lyme disease, and patterns not meeting the CDC criteria should be interpreted with caution. Western blot should be ordered only on specimens that are positive or equivocal by a FDA-licensed Lyme disease antibody screening test (e.g., EIA). Test performed by Immunoblot. Test Performed by: [facility] Dpt of Lab Med and Pathology [address] [place] [address] [employer] Gunner: Sukh Gibson III, M.D. 56 Analyte Specific Reagent This test was developed and its performance characteristics determined by Laboratory Medicine and Pathology, [facility]. It has not been cleared or approved by the U.S. Food and Drug Administration. Test Performed by: [facility] Dpt of Lab Med and Pathology [address] [place] [address] [employer] Gunner: Sukh Gibson III, M.D. 57 Analyte Specific Reagent This test was developed and its performance characteristics determined by Laboratory Medicine and Pathology, [facility]. It has not been cleared or approved by the U.S. Food and Drug Administration. Test Performed by: [facility] Dpt of Lab Med and Pathology [address] [place] [address] [employer] Gunner: Sukh Gibson III, M.D. 58 Warning: A positive result is not useful for establishing a diagnosis of syphilis. In most situations, such a result may reflect a prior treated infection; a negative result can exclude a diagnosis of syphilis except for incubating or early primary disease. 59 NO GROWTH AFTER 5 DAYS 60 NO GROWTH AFTER 5 DAYS 61 Not diagnostic. Supplemental testing ordered by reflex. Test Performed by: [facility] Dpt of Lab Med and Pathology [address] [place] [address] [employer]ner: Sukh Gibson III, M.D. 62 REPORTABLE DISEASE Consistent with early infection with Borrelia burgdorferi. A new serum specimen should be submitted in 14-21 days to demonstrate seroconversion of IgG. IgM blot criteria is of diagnostic utility only during the first 4 weeks of early Lyme disease. CDC criteria require >=5 bands for IgG or >=2 bands for IgM for the Western blot to be considered positive. Bands (e.g.,p41) may be detected in patients without Lyme disease, and patterns not meeting the CDC criteria should be interpreted with caution. Western blot should be ordered only on specimens that are positive or equivocal by a FDA-licensed Lyme disease antibody screening test (e.g., EIA). Test performed by immunoblot. Test Performed by: [facility] Dpt of Lab Med and Pathology [address] [place] [address] [employer] Gunner: Sukh Gibson III, M.D. 63 SPECIMEN CONTAINS NORMAL URETHRAL OR PERINEAL RUSTY AND DOES NOT SUGGEST URINARY TRACT INFECTION 64 Anion gap measurement may be of limited value in the presence of any alkalosis, especially in a combined acid base disorder. . 65 A metabolite of Naproxen, O-desmethylnaproxen, has been shown to interfere with the Jendrassik-Petros method for measuring total bilirubin. Samples from patients who have taken Naproxen have shown spurious elevation in total bilirubin levels. 66 Because ethnic data is not always readily available, this report includes an eGFR for both -Americans and non- Americans. The National Kidney Disease Education Program (NKDEP) does not endorse the use of the MDRD equation for patients that are not between the ages of 18 and 70, are , have extremes of body size, muscle mass, or nutritional status, or are non- or non-. According to the National Kidney Foundation, irrespective of diagnosis, the stage of the disease is based on the level of kidney function: Stage Description GFR(mL/min/1.73 m(2)) 1 Kidney damage with normal or decreased GFR 90 2 Kidney damage with mild decrease in GFR 60-89 3 Moderate decrease in GFR 30-59 4 Severe decrease in GFR 15-29 5 Kidney failure <15 (or dialysis) 67 Neutrophilia % Lymphopenia % 68 *TITERS 400 OR MORE ARE DEFINITELY ELEVATED *PLEASE NOTE CHANGE OF METHOD 69 NORMAL THROAT RUSTY 70 Neutrophilia % Lymphopenia % 71 Anion gap measurement may be of limited value in the presence of any alkalosis, especially in a combined acid base disorder. . 72 A metabolite of Naproxen, O-desmethylnaproxen, has been shown to interfere with the Jendrassik-Petros method for measuring total bilirubin. Samples from patients who have taken Naproxen have shown spurious elevation in total bilirubin levels. 73 Because ethnic data is not always readily available, this report includes an eGFR for both -Americans and non- Americans. The National Kidney Disease Education Program (NKDEP) does not endorse the use of the MDRD equation for patients that are not between the ages of 18 and 70, are , have extremes of body size, muscle mass, or nutritional status, or are non- or non-. According to the National Kidney Foundation, irrespective of diagnosis, the stage of the disease is based on the level of kidney function: Stage Description GFR(mL/min/1.73 m(2)) 1 Kidney damage with normal or decreased GFR 90 2 Kidney damage with mild decrease in GFR 60-89 3 Moderate decrease in GFR 30-59 4 Severe decrease in GFR 15-29 5 Kidney failure <15 (or dialysis) 74 A metabolite of Naproxen, O-desmethylnaproxen, has been shown to interfere with the Jendrassik-Clemmons method for measuring total bilirubin. Samples from patients who have taken Naproxen have shown spurious elevation in total bilirubin levels. 75 Please note updated reference range, effective 01/25/10 76 Test Performed by: [facility] Dpt of Lab Med and Pathology [address] [place] [address] [employer]ner: Sukh Gibson III, M.D. 77 Results suggest recent infection The detection of only anti-VCA IgG should be interpreted with caution in immunocompromised patients, as this population may demonstrate diminishing or undetectable levels of anti-EBNA IgG antibodies. In most populations, at least 90% of the adult population will have been infected with EBV sometime in the past and therefore, will be positive for anti-VCA/IgG and anti-EBNA. Antibodies to EBNA develop 6-8 weeks after primary infection and remain present for life. Presence of VCA/IgM antibodies indicates recent primary infection with EBV. Test Performed by: [facility] Dpt of Lab Med and Pathology [address] [place] [address] [employer]ner: Sukh Gibson III, M.D. 78 Anion gap measurement may be of limited value in the presence of any alkalosis, especially in a combined acid base disorder. . 79 A metabolite of Naproxen, O-desmethylnaproxen, has been shown to interfere with the Jendrassik-Clemmons method for measuring total bilirubin. Samples from patients who have taken Naproxen have shown spurious elevation in total bilirubin levels. 80 Because ethnic data is not always readily available, this report includes an eGFR for both -Americans and non- Americans. The National Kidney Disease Education Program (NKDEP) does not endorse the use of the MDRD equation for patients that are not between the ages of 18 and 70, are , have extremes of body size, muscle mass, or nutritional status, or are non- or non-. According to the National Kidney Foundation, irrespective of diagnosis, the stage of the disease is based on the level of kidney function: Stage Description GFR(mL/min/1.73 m(2)) 1 Kidney damage with normal or decreased GFR 90 2 Kidney damage with mild decrease in GFR 60-89 3 Moderate decrease in GFR 30-59 4 Severe decrease in GFR 15-29 5 Kidney failure <15 (or dialysis) 81 NO GROWTH AFTER 5 DAYS 82 NO GROWTH AFTER 5 DAYS 83 Anion gap measurement may be of limited value in the presence of any alkalosis, especially in a combined acid base disorder. . 84 A metabolite of Naproxen, O-desmethylnaproxen, has been shown to interfere with the Jendrassik-Petros method for measuring total bilirubin. Samples from patients who have taken Naproxen have shown spurious elevation in total bilirubin levels. 85 Because ethnic data is not always readily available, this report includes an eGFR for both -Americans and non- Americans. The National Kidney Disease Education Program (NKDEP) does not endorse the use of the MDRD equation for patients that are not between the ages of 18 and 70, are , have extremes of body size, muscle mass, or nutritional status, or are non- or non-. According to the National Kidney Foundation, irrespective of diagnosis, the stage of the disease is based on the level of kidney function: Stage Description GFR(mL/min/1.73 m(2)) 1 Kidney damage with normal or decreased GFR 90 2 Kidney damage with mild decrease in GFR 60-89 3 Moderate decrease in GFR 30-59 4 Severe decrease in GFR 15-29 5 Kidney failure <15 (or dialysis) 86 Neutrophilia % Lymphopenia % 87 PLEASE NOTE NEW REFERENCE RANGE. 88 THERAPEUTIC TARGET FOR THE TREATMENT OF DIABETES MELLITUS PATIENTS IS <7% HBA1C, AND IN SELECTIVE PATIENTS <6.0%. PLEASE REFER TO [employer] DIABETIC CARE GUIDELINES FOR FURTHER INFORMATION. 89 CHOLESTEROL INTERPRETATION: Desirable: Less than 200 MG/DL Borderline-High Risk: 200-239 MG/DL High-Risk: 240 MG/DL and over 90 HDL INTERPRETATION: Undesirable: High Risk: Less than 40 MG/DL Desirable: Low Risk: Greater than 60 MG/DL 91 LDL INTERPRETATION: Low Risk Optimal Level: LDL Less than 100 MG/DL Near or Above Optimal: LDL 100-129 MG/DL Borderline High Risk: LDL 130-159 MG/DL High Risk: LDL 160-189 MG/DL Very High Risk: LDL Greater than 189 MG/DL 92 Anion gap measurement may be of limited value in the presence of any alkalosis, especially in a combined acid base disorder. . 93 Because ethnic data is not always readily available, this report includes an eGFR for both -Americans and non- Americans. The National Kidney Disease Education Program (NKDEP) does not endorse the use of the MDRD equation for patients that are not between the ages of 18 and 70, are , have extremes of body size, muscle mass, or nutritional status, or are non- or non-. According to the National Kidney Foundation, irrespective of diagnosis, the stage of the disease is based on the level of kidney function: Stage Description GFR(mL/min/1.73 m(2)) 1 Kidney damage with normal or decreased GFR 90 2 Kidney damage with mild decrease in GFR 60-89 3 Moderate decrease in GFR 30-59 4 Severe decrease in GFR 15-29 5 Kidney failure <15 (or dialysis) 94 A metabolite of Naproxen, O-desmethylnaproxen, has been shown to interfere with the Jendrassik-Clemmons method for measuring total bilirubin. Samples from patients who have taken Naproxen have shown spurious elevation in total bilirubin levels. 95 Please note updated reference range, effective 01/25/10 96 Anion gap measurement may be of limited value in the presence of any alkalosis, especially in a combined acid base disorder. . 97 Note change in reference range as of 02/25/08. The change was based on recommendations from the [place] [employer]. 98 Because ethnic data is not always readily available, this report includes an eGFR for both -Americans and non- Americans. The National Kidney Disease Education Program (NKDEP) does not endorse the use of the MDRD equation for patients that are not between the ages of 18 and 70, are , have extremes of body size, muscle mass, or nutritional status, or are non- or non-. According to the National Kidney Foundation, irrespective of diagnosis, the stage of the disease is based on the level of kidney function: Stage Description GFR(mL/min/1.73 m(2)) 1 Kidney damage with normal or decreased GFR 90 2 Kidney damage with mild decrease in GFR 60-89 3 Moderate decrease in GFR 30-59 4 Severe decrease in GFR 15-29 5 Kidney failure <15 (or dialysis) 99 CHOLESTEROL INTERPRETATION: Desirable: Less than 200 MG/DL Borderline-High Risk: 200-239 MG/DL High-Risk: 240 MG/DL and over 100 HDL INTERPRETATION: Undesirable: High Risk: Less than 40 MG/DL Desirable: Low Risk: Greater than 60 MG/DL 101 LDL INTERPRETATION: Low Risk Optimal Level: LDL Less than 100 MG/DL Near or Above Optimal: LDL 100-129 MG/DL Borderline High Risk: LDL 130-159 MG/DL High Risk: LDL 160-189 MG/DL Very High Risk: LDL Greater than 189 MG/DL 102 SCANT NORMAL URETHRAL OR PERINEAL RUSTY 103 ----- RUN DATE: 10/21/08 [facility] NMI LIVE PAGE 1 RUN TIME: 1556 Specimen Inquiry RUN USER: INTERFACE -- Name: MARIANNE HUBBARDTRICIA Chanel Status: REG REF Re10/20/08 Age/Sex: 63/F Unit#: [id number] Location: END : 45 -- Specimen: [id number] Spec Date: 10/20/[address]: Darren Jaime MD Spec Type: SURGICAL P Received: 10/20/08-1105 Copies to: Chano faust MD SPECIMEN BIOPSY GREATER CURVATURE OF STOMACH HISTORY POST-OP DIAGNOSIS: Non-erosive gastroesophageal reflux disease; stomach p olyps; antral gastropathy CLINICAL INFORMATION: History of diverticulitis; gassy, abdominal discomf ort, persistent GROSS DESCRIPTION The specimen is received in formalin labelled Alison Hubbard, Greater Curvature Stomach, and consists of three fragments of hayden-yellow tissue each measuring 0.3 x 0.2 x 0.3 cm. Submitted entirely, one cassette. DIAGNOSIS Stomach, greater curvature, biopsy: Fundic gland type polyp. Signed Electronically by: BASILIO BRAUN 10/21/08 1556 -- -- DEPARTMENT OF PATHOLOGY, [address] [place] [address] [facility] Permit #[id number] Georges Case M.D. Director Basilio Braun M.D. [employer] Colorer Dir dada -- 104 Anion gap measurement may be of limited value in the presence of any alkalosis, especially in a combined acid base disorder. . 105 Note change in reference range as of 02/25/08. The change was based on recommendations from the [place] [employer]. 106 Please note change in reference range effective 07 . 107 PLEASE NOTE NEW REFERENCE RANGES. 108 Anion gap measurement may be of limited value in the presence of any alkalosis, especially in a combined acid base disorder. . Procedures Date CPT Code Description Status 09/02/2017 03031 EKG Tracing & Interpretation Completed 08/04/2017 Mammogram Completed 07/25/201738397 Inject/Drain Joint/Bursa Major Completed 07/18/201706490 Inject/Drain Joint/Bursa Major Completed 07/11/201787928 Inject/Drain Joint/Bursa Major Completed 05/15/201759036 Inject/Drain Joint/Bursa Major Completed 12/03/2016 26039 Debridement Skin,& sq Tissue Completed 09/23/2016 48506 ECHO Transthoracic, Real-Time 2D With Doppler And Color Completed Flow 08/26/2016 80113 EKG Tracing & Interpretation Completed 08/14/2016 33243 Stress Test Completed 08/14/2016 15101 Myocardial Perfusion Imaging Tomographic (Spect) Completed Multiple Studies 08/02/2016 Mammogram Completed 07/16/2016 22308 EKG Tracing & Interpretation Completed 03/01/2016 62200 FX Patella Care Completed 12/14/201592757 Inject/Drain Joint/Bursa Major Completed 07/26/201560731 Inject/Drain Joint/Bursa Major Completed 04/12/201553671 Inject/Drain Joint/Bursa Major Completed 10/05/2014 57390 Removal Implant Deep Wire,Screw Nail,Sameer Or Plate Completed 10/05/201480624 Removal Implant Deep Wire,Screw Nail,Sameer Or Plate Completed 09/12/201434741 Inject/Drain Joint/Bursa Major Completed 07/11/2014 10326 Rad Exam; Ankle Comp Completed 07/04/2014 18675 Short Leg Cast Completed 07/04/2014 72502 Rad Exam; Ankle Comp Completed 06/23/2014 03672 Open TX Of Distaltibiofibular JT Disruption W Or W/O Completed Fixation 06/23/2014 06035 ORIF Open TX Bimalleolar Ankle FX Includes Internal Completed Fixation 06/20/2014 79757 EKG Tracing & Interpretation Completed 06/13/2014 73852 Rad Exam; Ankle Comp Completed 03/23/2014 52317 Rad Exam; Knee Comp Completed 03/23/2014 44909 Rad Exam; Knee, Ap&L Completed 03/23/2014 47633 Inject/Drain Joint/Bursa Major Completed 01/28/2014 Mammogram Completed 12/01/2013 Colonoscopy Completed 12/18/2012 Mammogram Completed 04/09/2012 Bone Mineral Density Test Completed 05/10/2011 Mammogram Completed 06/12/2010 68224 Screening Vision Test Completed 04/03/2010 42548 ECHO Transthoracic, Real-Time 2D With Doppler And Color Completed Flow 05/05/2009 Bone Mineral Density Test Completed 12/29/2008 47540 EKG Tracing & Interpretation Completed 11/25/2008 Mammogram Completed 12/31/2007 40396 EKG Tracing & Interpretation Completed 12/31/2007 64391 EKG Tracing & Interpretation Completed 09/16/2007 Mammogram Completed 05/08/2007 17476 Pulse Doppler & Continuous Wave Completed 05/08/2007 57890 Pulse Doppler & Continuous Wave Completed 05/08/2007 08840 Echocardiogram Completed 05/08/2007 31764 Echocardiogram Completed 05/08/2007 33562 Color Doppler Completed 05/08/2007 81173 Color Doppler Completed 05/08/2007 18606 Color Doppler Completed 05/08/2007 35194 Echocardiogram Completed 04/14/2007 60737 Stress Test Supervsn W/Out I/R Completed 04/14/2007 04535 Stress Test Supervsn W/Out I/R Completed 04/14/2007 45922 Treadmill Interp/Report Only Completed 04/07/2007 95829 Stress Test Completed 04/07/2007 30539 ECHO/Stress Completed 04/07/2007 04195 ECHO/Stress Completed 12/19/2006 48889 Echocardiogram Completed 12/19/2006 37012 Echocardiogram Completed 12/19/2006 94861 Pulse Wave/Continuous-Interp.RPT Completed 12/19/2006 56599 Color Flow Doppler/Interp & Reprt Completed 12/19/2006 75605 Color Flow Doppler/Interp & Reprt Completed 07/07/2004 Colonoscopy Completed Encounters Type Date Location Provider CPT E/M Dx Office Visit 06/06/2017 [facility] Billingsley M.D. 08552 M17.12 11:00a [facility] M79.7 M21.062 M25.562 M25.462 Office Visit 06/03/2017 8:45a [facility] [place] [address] M17.32 C.M.A. Office Visit 05/15/2017 1:00p [facility] [place] [address] M17.12 [facility]. M17.32 Office Visit 12/03/2016 3:40p [facility] Internal Chano Johnson, 94566 M60.271 Aren Mcclure M.D.,FACP M79.7 Office Visit 10/14/2016 3:00p [facility] Tuyet Trinh 42770 I10 MNaman E78.2 I71.9 Office Visit 08/26/2016 10:15a [facility] Tuyet Christian 77402 R94.39 Taylor Trinh M.D. R07.9 E78.2 I10 R94.31 E66.9 R06.02 Office Visit 08/20/2016 11:10a [facility] Internal Chano Johnson, 90798 I25.118 Aren Mcclure M.D.,FACP M79.7 Office Visit 08/01/2016 1:00p [facility] [place] [address] S82.035D Of C.M.A. Office Visit 07/31/2016 2:00p [facility] Internal Medicine Chano Johnson, 53635 R07.9 - [place] Arjun Tucker,FACP J45.40 M79.7 Office Visit 07/16/2016 3:40p [facility] [place] [address] R07.[address] - [address] Office Visit 07/02/2016 11:30a [facility] [place] [address] S82.035D Of [facility].M[facility]. Office Visit 06/25/2016 9:30a [facility] Internal Medicine Chano Johnson, 03834 Z00.01 - Kami Tucker,FACP E78.2 I10 Z12.31 Z23 Office Visit 04/29/2016 11:00a [facility] Internal [place] [address] N39.0 Office Visit 03/06/2016 12:10p [facility] Internal Chano Johnson, 12128 H10.89 Medicine - [place] Arjun Tucekr,FACP Z12.31 Office Visit 12/26/2015 10:40a [facility] Internal [place] [address] R30.0 Office Visit 12/14/2015 11:00a [facility] [place] [address] M75.41 C.M.A. S46.011A S46.101A M75.21 Office Visit 06/15/2015 3:00p [facility] Internal Chano Johnson, 16679 Z00.01 Medicine - [place] Arjun Tucker,FACP K58.0 J45.40 M17.12 Z23 I10 E78.0 Office Visit 06/08/2015 2:00p [facility] [place] [address] K21.9 Office Visit 05/10/2015 2:30p [facility] [place] [address] R19.4 K21.9 Office Visit 04/12/2015 9:45a [facility] Marleny Arndt, 50613 M17.12 C.M.A. RENITA-C S82.842S Office Visit 02/23/2015 10:00a [facility] Internal [place] [address] 686.8 [place] Office Visit 07/11/2014 10:45a [facility] Easton Mukherjee, 18970 719.41 C.M.ARobin Tucker 715.11 726.19 719.51 824.4 845.03 Office Visit 06/20/2014 1:15p [facility] [place] Mukhejree, 76290 845.00 C.M.A. M.DRobin 824.4 719.47 Office Visit 06/13/2014 2:15p [facility] [place] Mukherjee, 73427 845.00 C.M.A. M.Floresita 824.4 719.47 e885.9 Office Visit 04/08/2014 2:30p [facility] [place] [address] 719.41 - [place] Office Visit 03/23/2014 11:30a [facility] Gaurang Kaye M.D. 86977 716.96 Of C.M.A. Office Visit 12/08/2013 10:00a [facility] Gaurang Kaye M.D. 29539 716.96 Of C.M.A. Office Visit 11/10/2013 8:45a [facility] Marleny Arndt, 17384 719.46 Of C.M.A. RPA-C Office Visit 10/28/2013 11:30a [facility] Internal Medicine Olga Adame, N.PRobin 36058 719.46 - [place] Office Visit 06/15/2013 2:40p [facility] Internal Medicine Lisa Perdomo 01135 599.0 - Kami Tucker Office Visit 03/16/2013 9:30a [facility] Internal Medicine Olga Adame, N.P. 26892 272.0 - [place] 401.1 727.3 Office Visit 03/03/2013 11:00a [facility] Rosamaria Henson M.D. 21287 333.1 Services Of [facility] 356.9 Office Visit 11/23/2012 10:10a [facility] Internal Medicine Chano Johnson, 25501 729.1 - Kami Tucker,FAC 787.99 Office Visit 11/10/2012 10:10a [facility] Internal Medicine Chano Johnson, 44599 787.99 - Kami Tucker,FAC Office Visit 07/22/2012 11:10a [facility] Internal Medicine Chano Johnson, 32349 729.1 - Kami Tucker,FACP 786.2 Office Visit 07/09/2012 3:40p [facility] Internal Medicine Ron Amaya, 31031 465.9 - Kami Tucker Office Visit 06/22/2012 2:40p [facility] Internal Medicine Chano Johnson, 11272 787.99 - Kami Tucker,FACP Office Visit 03/31/2012 1:30p [facility] Internal Medicine Olga Adame, 82483 455.0 - Kami N.P. 455.2 V82.81 V04.81 564.1 Office Visit 03/02/2012 10:30a [facility] Rosamaria Henson M.D. 95313 333.1 Services Of [facility] 356.9 Office Visit 01/03/2012 11:00a [facility] Internal Medicine Chano Johnson, 39630 V70.0 - Kami Tucker,FACP 729.1 272.0 401.1 Office Visit 07/16/2011 10:00a [facility] Bret Boudreaux 51899 088.81 Of Taylor M.Floresita 729.1 Office Visit 06/27/2011 12:10p DO Not Use [facility] At [place] Johnson, 20420 333.1 Fidelina Tucker,FACP Office Visit 03/12/2011 10:00a [facility] Bret Boudreaux M.D. 50781 729.1 Of [facility] 088.81 Office Visit 01/23/2011 8:50a DO Not Use [facility] At Chano Johnson, 66692 088.81 Fidelina Tucker,FACP Office Visit 01/16/2011 4:40p DO Not Use [facility] At García Rahman, 71423 466.0 Fidelina Tucker Office Visit 01/14/2011 11:30a DO Not Use [facility] At Chano Johnson, 86691 573.3 Fidelina Tucker,FACP 682.9 Office Visit 01/04/2011 2:00p DO Not Use [facility] At Chano Johnson, 21309 682.9 Fidelina Tucker,FACP 780.60 573.3 Office Visit 01/02/2011 9:40a DO Not Use [facility] At García Rahman, [address] [facility] Afshin.Floresita Office Visit 11/20/2010 10:40a [facility] Bret Boudreaux M.D. 68507 729.1 Of [facility] Office Visit 08/09/2010 11:40a DO Not Use [facility] At [facility], 92562 386.19 Keyserfredrick Tucker,FACP 780.4 Office Visit 06/12/2010 3:00p DO Not Use [facility] At [facility], 05694 372.00 [facility].Floresita,FACP 790.21 272.4 Office Visit 05/29/2010 4:00p DO Not Use [facility] At [facility], 30326 790.21 [facility].Floresita,FACP 401.1 790.6 V03.82 Office Visit 05/04/2010 10:40a DO Not Use [facility] At Ron Amaya, [address] [facility] Caitlin V04.81 Office Visit 12/13/2009 1:00p DO Not Use [facility] At [facility], [address] [facility] Caitlin,[facility] Office Visit 11/09/2009 11:00a DO Not Use [facility] At [facility], [address]58[address] [facility] Caitlin,[facility] Office Visit 09/12/2009 9:40a DO Not Use [facility] At [facility], [address] [facility] Caitlin,FACP 493.00 Office Visit 08/22/2009 3:30p DO Not Use [place] [address] [address] [facility] Office Visit 05/11/2009 2:00p DO Not Use [facility] At Brenda Urrutia, 12456 715.25 Keyserfredrick Pepe.Floresita 311 401.1 Office Visit 04/18/2009 11:20a DO Not Use [facility] At Brenda Urrutia, [address] [facility] Afshin.Floresita 311 Office Visit 12/29/2008 11:20a [facility] Tuyet Trinh, 70177 401.1 MRobinDRobin 272.4 Office Visit 12/01/2008 9:30a DO Not Use [facility] [place] [address] [facility] V03.7 V03.5 V06.5 Office Visit 09/14/2008 11:00a DO Not Use [facility] [place] [address] [address] [facility] Office Visit 08/26/2008 2:00p DO Not Use [place] [address] [address] [facility] Office Visit 06/24/2008 11:40a DO Not Use [facility] At Chano Johnson, 96277 562.10 [facility] 04/19/2008 9:00a DO Not Use [place] [address] [address] [facility] Office Visit 02/04/2008 9:00a DO Not Use [facility] [place] [address] [facility] 272.4 401.1 729.1 Office Visit 01/07/2008 10:20a DO Not Use [facility] At Chano Johnson, 20556 611.71 [facility] Visit 12/31/2007 3:00p [facility] Qutaybeh S. 53333 272.4 Caitlin Trinh 401.1 786.50 780.79 Office Visit 12/08/2007 1:30p DO Not Use [facility] [place] [address] [address] [facility] 780.79 Office Visit 06/15/2007 11:20a [facility] Qutaybeh S. Maghaydah, 86627 401.0 M.DRobin 272.4 Office Visit 04/28/2007 3:00p [facility] Qutaybeh S. Maghaydah, 56103 786.50 M.DRobin 786.09 401.0 Office Visit 04/07/2007 2:40p [facility] Qutaybeh S. Maghaydah, 38311 786.50 M.D. 786.09 794.31 Plan of Care Future Appointment(s):09/18/2017 2:30 pm - Mariano Palomino PA-C at [facility].09/18/2017 2:30 pm - NERIS Castaneda at [facility].09/09/2017 10:00 am - Woodrow Badillo MD at [facility]A.09/04/2017 1:00 pm - Jennifer Chahal NP at [facility] Internal Medicine - [address]/18/2017 2:30 pm - [facility]/05/2017 1:30 pm - Ericka Billingsley M.D. at [facility].09/02/2017 - Tuyet Trinh M.D.I10 Essential (primary) hypertensionFollow up:10 months ovE78.2 Mixed gxmbymsluacticP45.810 Encounter for preprocedural cardiovascular examination
[2017-09-18] MEDS ORDERED: Dexamethasone IV* 4 MG/ML 1 ML (4 MG) ONE (12:02)
[2017-09-18] MEDS ORDERED: Gabapentin CAP(*) 300 MG ONE (12:02)
[2017-09-18] MEDS ORDERED: celeCOXIB CAP* 100 MG ONE (12:02)
[2017-09-18] MEDS ORDERED: Famotidine IV* 10 MG/ML 2 ML (20 mg) ONE (12:02)
[2017-09-18] MEDS ORDERED: ceFAZolin 2 GM (*##) 2 GM/100 ML BAG USE CEFA2SOL IVPB ONE (12:03)
[2017-09-18] MEDS ORDERED: Buffered Lidocaine 0.9% SYRIN* 5 ML/SYR SYRINGE ONE (12:03)
[2017-09-18] MEDS ORDERED: Levalbuterol 1.25MG/0.5ML NEB ONE (12:03)
[2017-09-18] MEDS ORDERED: Scopolamine 1.5 mg* PATCH ONE (12:36)
[2017-09-18] MEDS ORDERED: fentaNYL* 50 MCG/ML 2 ML VIAL (100 MCG VIAL) ONE (13:04)
[2017-09-18] MEDS ORDERED: Midazolam* 1 MG/ML 5 ML VIAL (5 MG) ONE (13:05)
[2017-09-18] MEDS ORDERED: Propofol* 10 MG/ML 20 ML BTL IV PUSH ONE (13:08)
[2017-09-18] MEDS ORDERED: Ondansetron INJ* 2 MG/ML VIAL ONE (13:08)
[2017-09-18] MEDS ORDERED: ROPIVACAINE 5 MG/ML 30 ML BTL (0.5%) ONE (13:17)
[2017-09-18] MEDS ORDERED: Clindamycin 900 MG IVPREMIX(* 900 MG/50 ML SDV IV ONE (13:45)
[2017-09-18] MEDS ORDERED: Bupivacaine 0.5% SDV PF* 10-30ML VIAL ONE ×2 (13:50→14:14)
[2017-09-18] MEDS ORDERED: fentaNYL* 50 MCG/ML 2 ML VIAL (100 MCG VIAL) IV PRN (15:16)
[2017-09-18] MEDS ORDERED: Ondansetron INJ* 2 MG/ML VIAL IV PRN ×2 (15:16→16:38)
[2017-09-18] MEDS ORDERED: DiMENhydriNATE IV* 50 MG/ML VIAL IV PUSH PRN (15:16)
[2017-09-18] MEDS ORDERED: HYDROmorphone INJ* 1 MG/ML CARPUJECT SYRINGE IV PRN (15:16)
[2017-09-18] MEDS ORDERED: Naloxone* 0.4 MG/ML 1 ML VIAL IV PRN (15:16)
[2017-09-18] MEDS ORDERED: Acetaminophen IV 1GM/100ML * 100 ML ONE (15:22)
[2017-09-18] MEDS ORDERED: Polyethylene Glycol 3350* 17 GM PACKET PO PRN (16:38)
[2017-09-18] MEDS ORDERED: diPHENhydraMINE IV* 50 MG/ML 1 ml VIAL (BENADRYL) IV PRN (16:38)
[2017-09-18] MEDS ORDERED: oxyCODONE/Acetamin 5/325 MG* TAB PO PRN (16:38)
[2017-09-18] MEDS ORDERED: Magnesium Hydroxide LIQ* 30 ML UDC PO PRN (16:38)
[2017-09-18] MEDS ORDERED: Morphine INJ* 2 MG/ML 1 ML CARPUJECT IV PRN (16:38)
[2017-09-18] MEDS ORDERED: Bisacodyl SUPP* 10 MG SUPP PR PRN (16:38)
[2017-09-18] MEDS ORDERED: Acetaminophen TAB* 325 MG PO PRN (16:38)
[2017-09-18] MEDS ORDERED: Ondansetron TAB* 4 MG PO PRN (16:38)
[2017-09-18] MEDS ORDERED: Warfarin TAB(*) 6 MG PO ONE ×2 (17:00→20:15)
[2017-09-18] MEDS ORDERED: Levalbuterol 1.25MG/0.5ML NEB INH PRN (17:35)
--- NOTE | 2017-09-18 17:43 | RAD ---
INDICATION: Status post total left knee replacement surgery. TECHNIQUE: 2 views of the left knee were obtained. FINDINGS: The patient is status post total left knee replacement surgery. The bones and prostheses are in normal alignment. There is a surgical drain adjacent to the distal femur. IMPRESSION: STATUS POST TOTAL RIGHT KNEE REPLACEMENT SURGERY, NORMAL POSTOPERATIVE APPEARANCE.
[2017-09-18] MEDS ORDERED: AVAPRO PO SCH (18:00)
[2017-09-18] MEDS: oxyCODONE/Acetamin 5/325 MG* TAB PO PRN (21:06)
[2017-09-18] MEDS: Magnesium Hydroxide LIQ* 30 ML UDC PO SCH (22:42)
[2017-09-18] MEDS: Atorvastatin* 10 MG TAB PO SCH (22:42)
[2017-09-18] MEDS: Omeprazole CAP* 20 MG PO SCH (22:42)
[2017-09-18] MEDS: Montelukast Sodium TAB* 10 MG PO SCH (22:42)
[2017-09-18] MEDS: RESTASIS 0.05% BOTH EYES SCH (22:43)
[2017-09-18] MEDS: VENLAFAXINE 37.5 MG PO SCH (22:43)
[2017-09-18] MEDS: Clindamycin 600 MG IVPREMIX(* 600 MG/50 ML SDV IV SCH (22:43)
[2017-09-18] MEDS: Docusate CAP* 100 MG PO SCH (22:43)
[2017-09-18] MEDS: FLUNISOLIDE INH SCH (22:50)
--- NOTE | 2017-09-18 23:16 | CONS ---
CC: Dr. Ericka Billingsley; Dr. Rey Lees* DATE OF CONSULTATION: 09/18/17 REQUESTING PROVIDER: Dr. Ericka Billingsley. MY ATTENDING WHILE IN THE HOSPITAL: Dr. Rey Lees. REASON FOR CONSULTATION: Comanagement of comorbid medical conditions, status post left total knee arthroplasty. HISTORY OF PRESENT ILLNESS: Ms. Charles is a 72-year-old female with a past medical history significant for hypertension, hyperlipidemia, asthma, fibromyalgia, and osteoarthritis, who was admitted to the hospital status post left total knee arthroplasty due to failed conservative treatment for her left knee pain. The patient underwent the procedure with spinal anesthesia with an estimated blood loss of 250 mL. The patient was examined in the postacute anesthesia care unit. The patient states she is a little dizzy. Denies vertigo , no chest pain, shortness of breath, just feels like she is a little off. The patient has no feeling in her legs still from the spinal anesthesia, but has no pain. The patient has no recent illnesses, no dysuria, nausea, vomiting diarrhea, no swelling in her legs, no decreased exercise tolerance, shortness of breath on exertion. The patient had swelling in her knee, but no swelling in her bilateral lower extremities. Otherwise, the patient had a previous low risk stress test and was seen by a criminal legal assistant for cardiac clearance before her knee replacement. The patient states that she has stopped taking her low dose naltrexone 1 week ago. The patient denied any other recent medical issues. PAST MEDICAL HISTORY: Hypertension, hyperlipidemia, fibromyalgia, osteoarthritis, asthma, cellulitis, history of Lyme disease, lumbar radiculopathy, essential tremor, GERD. PAST SURGICAL HISTORY: Tonsillectomy, adenoidectomy, cholecystectomy, ORIF of the left ankle, Mohs procedure. CURRENT MEDICATIONS: Based on the patient's most recent primary care note: 1. Vagifem. 2. Meloxicam 15 mg p.o. daily. 3. Lovastatin 20 mg p.o. q.h.s. 4. Aspirin 81 mg p.o. daily. 5. Benefiber. 6. Omeprazole 20 mg p.o. daily. 7. Venlafaxine 37.5 mg at night and 18.75 mg in the morning. 8. Irbesartan 150 mg p.o. daily. 9. Loratadine 5 mg p.o. as needed. 10. Xopenex inhaler 45 mcg inhalation 1 puff 4 times daily as needed. 11. CoQ10. 12. Multivitamin. 13. EpiPen. 14. Triamcinolone. 15. Pataday 0.2% one drop both eyes daily. 16. Probiotic. 17. Vitamin D3. 18. Vitamin B. 19. Aerospan 80 mcg inhalation twice daily. 20. Singulair 10 mg p.o. daily. 21. Turmeric. 22. Calcium. 23. Magnesium. 24. Zinc. 25. Clobetasol. 26. Restasis. 27. Melatonin. ALLERGIES: NUTS, ALBUTEROL, LEVAQUIN, CONTRAST DYE, KEFLEX, and ANIMAL HAIR. FAMILY HISTORY: The patient has a family history significant for cancer, Alzheimer's, and stroke. The patient does not know what either of her parents of and her siblings are healthy. SOCIAL HISTORY: The patient lives with her . The patient does not smoke , use drugs or alcohol. REVIEW OF SYSTEMS: A 14-point review of systems was reviewed and is negative as above in the HPI. PHYSICAL EXAMINATION: General: The patient is a 72-year-old female, who appears stated age and sitting comfortably in bed, in no acute distress. Vital signs: Heart rate is 86, oxygen saturation is 97% on 2.5 L, respiratory rate 17 , blood pressure 127/78, temperature 98.4. HEENT: Normocephalic, atraumatic, sclerae anicteric. No conjunctival injection. Nasal mucosa moist. Oral mucosa moist. No pharyngeal erythema, discharge or exudate. Neck: Supple. Nontender. No lymphadenopathy. No carotid bruit auscultated. Respiratory: Clear to auscultation bilaterally. No wheezes, rales or rhonchi. Good air exchange bilaterally. Cardiac: Regular rate and rhythm. No clicks, murmurs, gallops, or rubs. Pulses 2+ in bilateral dorsalis pedis, posterior tibialis, and radial areas. Abdomen: Soft, nontender, and nondistended, bowel sounds present. Normoactive in all 4 quadrants. No hepatosplenomegaly. No abdominal bruits auscultated. Neurological: Cranial nerves II through XII intact. Reflexes are 1+ in bilateral brachial and Achilles areas. No sensation in the bilateral lower extremities. Strength 4/5 and equal bilaterally in the upper and lower extremities. Sensation intact to light touch in the upper extremities. Extraocular movements intact without nystagmus. Skin: Clean, dry and intact. No rash. Left knee surgical incision covered by bulky dressing. Psychiatric: Pleasant and cooperative. LABORATORY DATA: Not obtained since 08/12/17. That lab work was benign. ASSESSMENT AND PLAN: The patient is a 72-year-old female with past medical history significant for hypertension, hyperlipidemia, asthma, osteoarthritis, who is here status post a left total knee arthroplasty and is stable in the postanesthesia care unit. 1. Status post left total knee arthroplasty. The patient has no pain at this time due to spinal anesthesia. The patient's pain control per primary team, bowel regimen per primary team. The patient has no recent illnesses at this time that would appear to complicate her postsurgical course. 2. Hypertension. The patient is normotensive at this time. The patient takes her Avapro in the evening and has not had since last evening. We will hold for this time. Continue fluids due to spinal anesthesia and risk for hypotension. We will reintroduce as needed. The patient is asymptomatic for headache, chest pain or other signs of hypertension. 3. Asthma. Continue Xopenex as needed. Continue Aerospan and Singulair as scheduled. 4. Hyperlipidemia. Continue lovastatin. 5. Lumbar radiculopathy. Continue cyclobenzaprine as needed. 6. Fibromyalgia. Continue venlafaxine as scheduled. Pain control otherwise per primary team. The patient will hold supplements and hold supplements while in the hospital. 7. FEN: The patient will have a heart healthy diet without caffeine. Advance as tolerated. The patient will have lactated Ringer's at 100 mL an hour. 8. DVT prophylaxis per primary team. Lovenox to warfarin. The patient to have an INR checked daily in the hospital. May resume aspirin in the morning. 9. Code status: The patient would like to be a full code. The patient's surrogate decision maker is her . TIME SPENT: Approximately 60 minutes were spent on this consultation, 30 of which was spent [id number] with the patient obtaining history and physical and discussing treatment plan. This plan has been discussed with my attending, Dr. Rey Lees, and he is in agreement. Thank you very much for this consultation. NERIS RAYA [id number]/[id number]/EMELIA #: [id number] GAIL
[2017-09-19] MEDS: oxyCODONE/Acetamin 5/325 MG* TAB PO PRN ×4 (01:02→21:09)
[2017-09-19] MEDS: Clindamycin 600 MG IVPREMIX(* 600 MG/50 ML SDV IV SCH ×2 (05:57→14:49)
[2017-09-19 06:20] LABS: Hematocrit 35 % (35-47); Hemoglobin 12.1 g/dl (12.0-16.0); Mean Platelet Volume 7 um3 (7.4-10.4); Platelet Count 251 10^3/ul (150-450)
[2017-09-19 06:29] LABS: INR 0.96 (0.77-1.02)
[2017-09-19 06:38] LABS: EGFR Non-African American 67.6 (>60)
[2017-09-19] MEDS: Docusate CAP* 100 MG PO SCH ×2 (09:06→21:09)
[2017-09-19] MEDS: Venlafaxine EXT RELEASE CAP* 37.5 MG PO SCH (09:06)
[2017-09-19] MEDS: Aspirin EC Low Dose* 81 MG TAB.EC PO SCH (09:06)
[2017-09-19] MEDS: Magnesium Hydroxide LIQ* 30 ML UDC PO SCH ×2 (09:06→21:11)
[2017-09-19] MEDS: FLUNISOLIDE INH SCH ×2 (09:06→21:12)
[2017-09-19] MEDS: Cetirizine* 10 MG TAB PO SCH (09:06)
[2017-09-19] MEDS: oxyCODONE TAB* 5 MG TAB PO PRN (09:07)
[2017-09-19] MEDS: RESTASIS 0.05% BOTH EYES SCH ×2 (09:07→20:56)
[2017-09-19] MEDS: Enoxaparin(*) 30 MG/0.3 ML SYR SUBCUT SCH (12:36)
[2017-09-19] MEDS: Cyclobenzaprine TAB* 10 MG PO PRN (12:36)
--- NOTE | 2017-09-19 12:58 | PN ---
Progress Note - Progress Note Date of Service: 09/19/17 SOAP: Subjective: 72 y/o female s/p L TKA by DR. Billingsley 09/18. Patient feeling well, mild nausea, mobile. VSS, afebrile overnight. Objective: General- Well appearing, NAD, AO sitting in bed comfortably MSK- LLE- DF/PF = b/l, PT 2+, negative homans sign, SITLT, dressing intact, no drainage, no induration/ erythema. mild edema. Vital Signs Temp 97.1 F 09/19/17 08:09 Pulse 76 09/19/17 08:09 Resp 18 09/19/17 12:37 BP 114/52 09/19/17 08:09 Pulse Ox 94 09/19/17 08:09 Intake & Output 09/18/17 09/19/17 09/19/17 18:59 06:59 18:59 Intake Total 1350 1636 Output Total 1700 1525 0 Balance -350 111 0 Weight 94.347 kg Intake: IV Fluids 1350 981 900MG CLINDAMYCIN 50 LR 981 lr 1300 IVPB 55 ABX - CLINDAMYCIN 55 Oral 600 Output: May 1450 1525 0 Estimated Blood Loss 250 Other: # Bowel Movements 0 Assessment: Stable 72 y/o female s/p L TKA by DR. Billingsley 09/18 Plan: - DVT prophylaxis- lovenox, coumadin 6mg tonight - Continue PT/ OT - Follow up with Dr. Billingsley within 10-14 days - H&H - stable - post-op IV ABX - completed. - Possible d/c tomorrow Active Medications Generic Name Dose Route Start Last Admin Trade Name Freq PRN Reason Stop Dose Admin Acetaminophen 650 mg 09/18/17 16:38 Tylenol Tab* PO Q4H PRN PAIN OR TEMPERATURE Aspirin 81 mg 09/19/17 09:00 09/19/17 09:06 Aspirin Ec Low Dose* PO 81 mg DAILY JACOB Administration Atorvastatin Calcium 5 mg 09/18/17 21:15 09/18/17 22:42 Lipitor* PO 10 mg QPM JACOB Administration Bisacodyl 10 mg 09/18/17 16:38 Dulcolax Supp* CO DAILY PRN constipation Cetirizine HCl 5 mg 09/19/17 09:00 09/19/17 09:06 Zyrtec* PO 5 mg QAM JACOB Administration Clobetasol Propionate 1 applic 09/19/17 21:00 Clobetasol 0.05% Oint* TOPICAL BID JACOB Cyclobenzaprine HCl 10 mg 09/18/17 16:38 Flexeril Tab* PO TID PRN SPASMS Diphenhydramine HCl 12.5 mg 09/18/17 16:38 Benadryl Iv* IV Q6H PRN PRURITIS Docusate Sodium 100 mg 09/18/17 21:00 09/19/17 09:06 Colace Cap* PO 100 mg BID JACOB Administration Enoxaparin Sodium 30 mg 09/19/17 12:00 09/19/17 12:36 Lovenox(*) SUBCUT 30 mg Q24H JACOB Administration Clindamycin HCl/Dextrose 600 mg in 50 mls @ 100 mls/hr 09/18/17 22:30 05:57 Cleocin 600 Mg Ivpremix(*) Sdv IV 09/19/17 14:59 100 mls/hr Q8H JACOB Administration Lactated Ringer's 1,000 mls @ 100 mls/hr 09/18/17 17:00 09/19/17 04:47 Lactated Ringers 1000 Ml Bag* IV 100 mls/hr PER RATE JACOB Administration Lactulose 30 ml 09/18/17 16:38 Lactulose* PO Q6H PRN constipation Levalbuterol HCl 1.25 mg 09/18/17 17:35 Xopenex 1.25 Mg/0.5 Ml Neb.Jessica* INH Q6H PRN SOB/WHEEZING Magnesium Hydroxide 30 ml 09/18/17 21:00 09/19/17 09:06 Milk Of Magnesia Liq* PO 30 ml BID JACOB Administration Magnesium Hydroxide 30 ml 09/18/17 16:38 Milk Of Magnesia Liq* PO Q6H PRN constipation Montelukast Sodium 10 mg 09/18/17 18:00 09/18/17 22:42 Singulair Tab* PO 10 mg QPM JACOB Administration Morphine Sulfate 2 mg 09/18/17 16:38 09/19/17 02:53 Morphine Inj (Syringe)* IV 2 mg Q2H PRN Administration PAIN (Restasis 0.05% 1 drop 09/18/17 21:00 09/19/17 09:07 Ophth 1 Drop) BOTH EYES Not Given BID [facility] Pto: (Flunisolide [ 2 puff 09/18/17 21:00 09/19/17 09:06 Aerospan] 2 Puff) INH 2 puff BID JACOB Administration Venlafaxine Er 37.5 0.5 dose 09/18/17 21:30 09/18/17 22:43 Mg Tablets PO Not Given QPM JACOB Omeprazole 20 mg 09/18/17 18:00 09/18/17 22:42 Prilosec Cap* PO 20 mg QPM JACOB Administration Ondansetron HCl 4 mg 09/18/17 16:38 09/19/17 09:54 Zofran Inj* IV 4 mg Q6H PRN Administration nausea Ondansetron HCl 4 mg 09/18/17 16:38 Zofran Tab* PO Q6H PRN NAUSEA Oxycodone HCl 10 mg 09/18/17 16:38 09/19/17 09:07 Roxycodone Tab* PO 10 mg Q4H PRN Administration SEVERE PAIN Oxycodone/Acetaminophen 2 tab 09/18/17 16:38 09/19/17 12:37 Percocet 5/325 Tab* PO 2 tab Q4H PRN Administration PAIN Oxycodone/Acetaminophen 1 tab 09/18/17 16:38 Percocet 5/325 Tab* PO Q4H PRN PAIN Pharmacy Profile Note 1 note 09/21/17 06:00 Scopolamine Patch Remove* PATCH OFF 09/21/17 06:01 ONCE ONE Pharmacy Profile Note 1 note 09/19/17 17:00 Coumadin Daily Reminder* FOLLOW UP 1700 [facility] Polyethylene Glycol/Electrolytes 17 gm 09/18/17 16:38 Miralax* PO DAILY PRN Constipation Venlafaxine HCl 37.5 mg 09/19/17 09:00 09/19/17 09:06 Effexor Xr Cap* PO 37.5 mg QAM [facility] Administration Warfarin Sodium 6 mg 09/19/17 17:00 Coumadin Tab(*) PO 09/19/17 17:01 ONCE@1700 [facility] Protocol
--- NOTE | 2017-09-19 14:37 | PN ---
Subjective Date of Service: 09/19/17 Interval History: Patient is feeling well today. Minimal pain in leg. Persistent numbness in cao not previously present. Patient has not urinated since they took out her workman at 0900 and does not feel the urge to urinate. Patient is passing flatus but has had no BM. Patient had some nausea without vomiting when first standing that resolved with medication and has not recurred. Pain 3-4/10 at rest. No F/C , Dysuria, SOB, CP, or other pain. Family History: Unchanged from Admission Social History: Unchanged from Admission Past Medical History: Unchanged from Admission Objective Active Medications: Acetaminophen (Tylenol Tab*) 650 mg PO Q4H PRN PRN Reason: PAIN OR TEMPERATURE Aspirin (Aspirin Ec Low Dose*) 81 mg PO DAILY [facility] Last Admin: 09/19/17 09:06 Dose: 81 mg Atorvastatin Calcium (Lipitor*) 5 mg PO QPM [facility] Last Admin: 09/18/17 22:42 Dose: 10 mg Bisacodyl (Dulcolax Supp*) 10 mg [facility] DAILY PRN PRN Reason: constipation Cetirizine HCl (Zyrtec*) 5 mg PO QAM [facility] Last Admin: 09/19/17 09:06 Dose: 5 mg Clobetasol Propionate (Clobetasol 0.05% Oint*) 1 applic TOPICAL BID [facility] Cyclobenzaprine HCl (Flexeril Tab*) 10 mg PO TID PRN PRN Reason: SPASMS Diphenhydramine HCl (Benadryl Iv*) 12.5 mg IV Q6H PRN PRN Reason: PRURITIS Docusate Sodium (Colace Cap*) 100 mg PO BID [facility] Last Admin: 09/19/17 09:06 Dose: 100 mg Enoxaparin Sodium (Lovenox(*)) 30 mg SUBCUT Q24H [facility] Last Admin: 09/19/17 12:36 Dose: 30 mg Clindamycin HCl/Dextrose (Cleocin 600 Mg Ivpremix(*) Sdv) 600 mg in 50 mls @ 100 mls/hr IV Q8H [facility] Stop: 09/19/17 14:59 Last Admin: 09/19/17 05:57 Dose: 100 mls/hr Lactated Ringer's (Lactated Ringers 1000 Ml Bag*) 1,000 mls @ 100 mls/hr IV PER RATE [facility] Last Admin: 09/19/17 04:47 Dose: 100 mls/hr Lactulose (Lactulose*) 30 ml PO Q6H PRN PRN Reason: constipation Levalbuterol HCl (Xopenex 1.25 Mg/0.5 Ml Neb.Jessica*) 1.25 mg INH Q6H PRN PRN Reason: SOB/WHEEZING Losartan Potassium (Cozaar Tab*) 50 mg PO QPM [facility] Magnesium Hydroxide (Milk Of Magnesia Liq*) 30 ml PO BID [facility] Last Admin: 09/19/17 09:06 Dose: 30 ml Magnesium Hydroxide (Milk Of Magnesia Liq*) 30 ml PO Q6H PRN PRN Reason: constipation Montelukast Sodium (Singulair Tab*) 10 mg PO QPM [facility] Last Admin: 09/18/17 22:42 Dose: 10 mg Morphine Sulfate (Morphine Inj (Syringe)*) 2 mg IV Q2H PRN PRN Reason: PAIN Last Admin: 09/19/17 02:53 Dose: 2 mg (Restasis 0.05% (Ophth 1 Drop)) 1 drop BOTH EYES BID [facility] Last Admin: 09/19/17 09:07 Dose: Not Given Pto: (Flunisolide [ (Aerospan] 2 Puff)) 2 puff INH BID [facility] Last Admin: 09/19/17 09:06 Dose: 2 puff Venlafaxine Er 37.5 (Mg Tablets) 0.5 dose PO QPM [facility] Last Admin: 09/18/17 22:43 Dose: Not Given Omeprazole (Prilosec Cap*) 20 mg PO QPM [facility] Last Admin: 09/18/17 22:42 Dose: 20 mg Ondansetron HCl (Zofran Inj*) 4 mg IV Q6H PRN PRN Reason: nausea Last Admin: 09/19/17 09:54 Dose: 4 mg Ondansetron HCl (Zofran Tab*) 4 mg PO Q6H PRN PRN Reason: NAUSEA Oxycodone HCl (Roxycodone Tab*) 10 mg PO Q4H PRN PRN Reason: SEVERE PAIN Last Admin: 09/19/17 09:07 Dose: 10 mg Oxycodone/Acetaminophen (Percocet 5/325 Tab*) 2 tab PO Q4H PRN PRN Reason: PAIN Last Admin: 09/19/17 12:37 Dose: 2 tab Oxycodone/Acetaminophen (Percocet 5/325 Tab*) 1 tab PO Q4H PRN PRN Reason: PAIN Pharmacy Profile Note (Scopolamine Patch Remove*) 1 note PATCH OFF ONCE ONE Stop: 09/21/17 06:01 Pharmacy Profile Note (Coumadin Daily Reminder*) 1 note FOLLOW UP 1700 JACOB Polyethylene Glycol/Electrolytes (Miralax*) 17 gm PO DAILY PRN PRN Reason: Constipation Venlafaxine HCl (Effexor Xr Cap*) 37.5 mg PO QAM [facility] Last Admin: 09/19/17 09:06 Dose: 37.5 mg Warfarin Sodium (Coumadin Tab(*)) 6 mg PO ONCE@1700 ONE PRN Reason: Protocol Stop: 09/19/17 17:01 Vital Signs - 8 hr 09/19/17 09/19/17 09/19/17 08:00 08:09 08:44 Temperature 97.1 F Pulse Rate 76 Respiratory 18 16 18 Rate Blood Pressure 114/52 (mmHg) O2 Sat by Pulse 94 94 Oximetry 09/19/17 09/19/17 09/19/17 09:07 11:08 11:10 Temperature 97.7 F Pulse Rate 59 Respiratory 18 16 18 Rate Blood Pressure 132/49 (mmHg) O2 Sat by Pulse 92 Oximetry 09/19/17 12:37 Temperature Pulse Rate Respiratory 18 Rate Blood Pressure (mmHg) O2 Sat by Pulse Oximetry Oxygen Devices in Use Now: None Appearance: Patient is a 72yo female who appears stated age and is sitting in the bed in [facility]. Eyes: No Scleral Icterus, PERRLA Ears/Nose/Mouth/Throat: NL Teeth, Lips, Gums, Clear Oropharnyx, Mucous Membranes Moist Neck: NL Appearance and Movements; NL JVP, Trachea Midline Respiratory: Symmetrical Chest Expansion and Respiratory Effort, Clear to Auscultation Cardiovascular: NL Sounds; No Murmurs; No JVD, RRR, No Edema Abdominal: NL Sounds; No Tenderness; No Distention, No Hepatosplenomegaly Lymphatic: No Cervical Adenopathy Extremities: No Edema, No Clubbing, Cyanosis, - - Left knee covered with bulky dressing Skin: No Nodules or Sclerosis Neurological: Alert and Oriented x 3, NL Muscle Strength and Tone, - - CN II- XII intact. Result Diagrams: 09/19/17 06:09 09/19/17 06:09 Assess/Plan/Problems-Billing Assessment: Patient is a 72yo female with a PMH of HTN, HLD, and asthma who is S/P LTKA and is doing well. - Patient Problems (1) Status post left knee replacement Current Visit: Yes Status: Acute Code(s): Z96.652 - PRESENCE OF LEFT ARTIFICIAL KNEE JOINT SNOMED Code(s): 3013825150944 Comment: POD #1. Feeling well, pain controlled. Intermittent controllable nausea. No urination or BM yet. Management per primary team. (2) Asthma Current Visit: Yes Status: Acute Code(s): J45.909 - UNSPECIFIED ASTHMA, UNCOMPLICATED SNOMED Code(s): 393707094 Comment: Continue inhalers PRN and Singulair. (3) Hypertension Current Visit: Yes Status: Acute Code(s): I10 - ESSENTIAL (PRIMARY) HYPERTENSION SNOMED Code(s): 85427586 (4) Hyperlipidemia Current Visit: Yes Status: Acute Code(s): E78.5 - HYPERLIPIDEMIA, UNSPECIFIED SNOMED Code(s): 57460403 (5) GERD (gastroesophageal reflux disease) Current Visit: Yes Status: Acute Code(s): K21.9 - GASTRO-ESOPHAGEAL REFLUX DISEASE WITHOUT ESOPHAGITIS SNOMED Code(s): 663328171 (6) DVT prophylaxis Current Visit: Yes Status: Acute Code(s): SLT3376 - SNOMED Code(s): 650074814 (7) Full code status Current Visit: Yes Status: Acute Code(s): Z78.9 - OTHER SPECIFIED HEALTH STATUS SNOMED Code(s): 241807559
[2017-09-19] MEDS ORDERED: Warfarin TAB(*) 6 MG PO ONE (17:00)
[2017-09-19] MEDS: Atorvastatin* 10 MG TAB PO SCH (17:08)
[2017-09-19] MEDS: Omeprazole CAP* 20 MG PO SCH (17:12)
[2017-09-19] MEDS: Losartan TAB* 25 MG PO SCH (17:12)
[2017-09-19] MEDS: Montelukast Sodium TAB* 10 MG PO SCH (17:12)
[2017-09-19] MEDS: VENLAFAXINE 37.5 MG PO SCH (17:13)
[2017-09-19] MEDS: Clobetasol 0.05% OINT* 30 GM TUBE TOPICAL SCH (21:07)
--- NOTE | 2017-09-19 23:47 | OP ---
OPERATIVE REPORT: DATE OF OPERATION: 09/18/17 DATE OF : 45 SURGEON: Ericka Billingsley MD FASHION CONSULTANT SALES: NERIS Haider Ms. did help throughout the procedure with preparation of the leg, wound retraction, manipul ation of the knee, and wound closure. ANESTHESIOLOGIST: Dr. Chavarria. ANESTHESIA: Spinal. PRE-OP DIAGNOSIS: Severe end-stage degenerative osteoarthritis of the left knee joint with valgus de formity. POST-OP DIAGNOSIS: Severe end-stage degenerative osteoarthritis of the left knee joint with valgus d eformity. OPERATIVE PROCEDURE: Left total knee arthroplasty. TOURNIQUET TIME: 49 minutes. ESTIMATED BLOOD LOSS: 100 cc. COMPLICATIONS: None. SPECIMEN: Bone and cartilage from the left knee joint sent to Pathology. HARDWARE USED: This is cemented [employer] total knee arthroplasty hardware. Two packages of S implex bone cement. For the femur, a left 6 narrow Legion posterior stabilized femoral component. F or the tibia, left size 5, Baylee II tibial blase plate. For the insert, a 9-mm posterior stabilize d articular insert, size 5/6 and for the patella, a 35-mm 3 peg all poly patella. BRIEF HISTORY/INDICATIONS: Ms. Charles is a 72-year-old female with years of increasingly severe left knee pain. She failed conservative treatment with anti- inflammatories, pain medication, intra-artic ular injections, and physical therapy. Radiographs showed [id number] arthritis. Due to continued p ain and decreased quality of life, she elected to undergo left total knee arthroplasty. Informed con sent was obtained from the patient. She understood the risks of surgery included, but were not limit ed to, bleeding, infection, damage to nearby structures, continued pain, need for further surgery, in traoperative fracture, nerve palsy, hardware failure or loosening, knee stiffness, loss of motion, st roke, heart attack, blood clot, and . She wished to proceed. INTRAOPERATIVE FINDINGS: Intraoperatively, the patient was noted to have 10-degree valgus deformity, which was corrected to anatomic valgus. She had severe end-stage loss of cartilage in all 3 compart ments. DESCRIPTION OF PROCEDURE: Ms. Charles was identified in the preanesthesia unit. Her left lower extrem ity was marked as the correct operative side. Informed consent was signed and placed in the chart. The patient was taken to the operating room and placed under spinal anesthesia. A May catheter was placed. Tourniquet was placed on the left thigh. Left lower extremity was prepped and draped in th e usual sterile fashion. Preop time-out was made to correctly identify the patient's side and site. Appropriate perioperative antibiotics were given within 1 hour of incision. Tourniquet was inflated until tourniquet time for this procedure was 49 minutes. Midline incision was made with a 10 blade and carried down to the extensor mechanism. A new 10 blade was used to make a standard medial parapatellar arthrotomy. The patella was subluxed laterally. Electrocautery was use d to subperiosteally elevate soft tissue off the superomedial tibia to the mid sagittal plane. The k nee was flexed up. The anterior horn of the lateral meniscus and ACL were sharply released. A drill was used to enter the distal femur. Intramedullary distal femoral cutting guide was pinned on the d istal femur. Lateral femoral condylar hypoplasia was noted and accounted for. Oscillating saw was u sed to make the distal femur cut. Next, the external rotation guide was pinned on the distal femur. Distal femur was sized to a size 6. A size 6 multi-cutting jig was pinned on the distal femur. Osc illating saw was used to make the appropriate 4 chamfer cuts. The PCL was completely released. The tibia was subluxed anteriorly. Extramedullary tibial cutting gu harsh was pinned on the proximal tibia. The oscillating saw was used to make the proximal tibial cut p erpendicular to the mechanical axis of the tibia. The bone was carefully removed. The knee was brou ght out into full extension. The medial and lateral ligamentous balancing was excellent. Flexion an d extension gap balancing was satisfactory. The knee was flexed up. Lamina server support technician was placed both medially and laterally. Any remaining meniscus was removed using electrocautery. Curved osteotome was used to remove any posterior osteophytes. Tibial tray and drop liset were placed and confirmed a s atisfactory tibial cut. A left 6 narrow femoral trial was impacted on to the distal femur and had excellent fit. The box for the posterior stabilized implant was prepared using a reamer and box cut osteotome. Size 5 tibial t ray with a 9-mm insert trial was placed and the knee was taken through a range of motion. The knee h as full extension to 130 degrees of flexion. There was satisfactory patellofemoral tracking. The patella was everted. A 9 mm of patellar bone and cartilage was carefully removed using an oscill ating saw. The patella was sized to a size 35. Three peg holes were drilled through the size 35 sallie de. The 35 trial patella was placed and the knee was taken through a range of motion. Patellofemora l tracking was satisfactory. All trials were removed. The tibia was subluxed anteriorly and sized to a size 5. Proximal tibia was prepared using a size 5 keel punch. All bony cut surfaces were copiously irrigated with sterile saline and dried. Final implants were andrews ented into place starting with the tibia, followed by the femur and last the patella. A 9-mm insert trial was placed while the knee was brought out into full extension. The knee was copiously irrigate d with sterile saline and the tourniquet was turned down. Electrocautery was used to obtain meticulo us hemostasis. Once the cement had fully cured, the insert trial was removed. Excess cement was rem sarah from around the capsule and hardware. Final insert chosen was a 9-mm posterior stabilized artic ular insert size 5/6. This was locked into position on the tibial tray. Stability of the insert was checked and rechecked and noted to be stable. The extensor mechanism was closed over a medium Hemov ac drain using interrupted #1 Vicryls. The rest of the incision was closed in a layered fashion usin g 0 and 2-0 Vicryls. Skin was closed using running 3-0 nylon suture. Sterile Xeroform, 4x4s, and We bril were used to cover the incision. Yonas wrap and cold pack were placed over this. The patient's a nesthesia was reversed without difficulty. She was taken to the PACU in stable condition. Intended weightbearing will be weightbearing as tolerated. Intended DVT prophylaxis will be Coumadin with a L ovenox bridge. [id number]/[facility] #: [id number]
[2017-09-20] MEDS: oxyCODONE TAB* 5 MG TAB PO PRN ×2 (00:40→09:10)
[2017-09-20] MEDS: Cyclobenzaprine TAB* 10 MG PO PRN (00:44)
[2017-09-20 05:43] LABS: Hematocrit 31 % (35-47); Hemoglobin 10.5 g/dl (12.0-16.0); Mean Platelet Volume 7 um3 (7.4-10.4); Platelet Count 195 10^3/ul (150-450)
[2017-09-20 05:49] LABS: INR 1.4 (0.77-1.02)
[2017-09-20] MEDS: oxyCODONE/Acetamin 5/325 MG* TAB PO PRN (05:51)
[2017-09-20] MEDS: Clobetasol 0.05% OINT* 30 GM TUBE TOPICAL SCH (09:06)
[2017-09-20] MEDS: FLUNISOLIDE INH SCH (09:08)
[2017-09-20] MEDS: Venlafaxine EXT RELEASE CAP* 37.5 MG PO SCH (09:10)
[2017-09-20] MEDS: Aspirin EC Low Dose* 81 MG TAB.EC PO SCH (09:10)
[2017-09-20] MEDS: Docusate CAP* 100 MG PO SCH (09:11)
[2017-09-20] MEDS: Cetirizine* 10 MG TAB PO SCH (09:11)
[2017-09-20] MEDS: RESTASIS 0.05% BOTH EYES SCH (09:12)
[2017-09-20] MEDS: Magnesium Hydroxide LIQ* 30 ML UDC PO SCH (09:12)
--- NOTE | 2017-09-20 09:55 | PN ---
Progress Note - Progress Note Date of Service: 09/20/17 SOAP: Subjective: Pt lying comfortably in bed. States there was more pain in her knee overnight. Pain is well controlled with pain meds. No other complaint today. Denies F/C/N/T Vital Signs: Temp Pulse Resp BP Pulse Ox 98.0 F 103 18 154/67 100 09/20/17 07:53 09/20/17 07:53 09/20/17 09:10 09/20/17 07:53 09/20/17 07:53 Laboratory Last Values Hgb 10.5 g/dl (12.0-16.0) L 09/20/17 05:34 Hct 31 % (35-47) L 09/20/17 05:34 Plt Count 195 10^3/ul (150-450) 09/20/17 05:34 MPV 7 um3 (7.4-10.4) L 09/20/17 05:34 INR (Anticoag Therapy) 1.40 (0.77-1.02) H 09/20/17 05:34 Sodium 136 mmol/L (133-145) 09/19/17 06:09 Potassium 4.4 mmol/L (3.5-5.0) 09/19/17 06:09 Chloride 101 mmol/L (101-111) 09/19/17 06:09 Carbon Dioxide 29 mmol/L (22-32) 09/19/17 06:09 Anion Gap 6 mmol/L (2-11) 09/19/17 06:09 BUN 14 mg/dL (6-24) 09/19/17 06:09 Creatinine 0.83 mg/dL (0.51-0.95) 09/19/17 06:09 Est GFR ( Amer) 86.9 (>60) 09/19/17 06:09 Est GFR (Non-Af Amer) 67.6 (>60) 09/19/17 06:09 BUN/Creatinine Ratio 16.9 (8-20) 09/19/17 06:09 Glucose 135 mg/dL (70-100) H 09/19/17 06:09 Calcium 8.7 mg/dL (8.6-10.3) 09/19/17 06:09 Objective: Dressing changed by Dr. Billingsley, incision C/D/I. Calves soft, nontender. No edema. Sensation intact to lite touch distally. 2+ DP pulses. Assessment: 72 yo Female s/p Left TKA POD#2 Plan: OOB, PT/OT WBAT Pain control DVT prophylaxis - Coumadin 6mg today then 4mg tomorrow D/C home today Follow up with Dr. Billingsley 10-14 days
[2017-09-20] MEDS: Enoxaparin(*) 30 MG/0.3 ML SYR SUBCUT SCH (11:46)
[2017-09-20 15:39] VITALS: BP 140/57
[2017-09-20] MEDS: Omeprazole CAP* 20 MG PO SCH (17:11)
[2017-09-20] MEDS: Atorvastatin* 10 MG TAB PO SCH (17:11)
[2017-09-20] MEDS: Montelukast Sodium TAB* 10 MG PO SCH (17:11)
[2017-09-20] MEDS: Losartan TAB* 25 MG PO SCH (17:11)
[2017-09-20] MEDS: VENLAFAXINE 37.5 MG PO SCH (17:12)
--- NOTE | 2017-09-21 01:57 | DS ---
AMENDED REPORT NOW INCLUDES COSIGNER DESIGNATION - ESIGNED BEFORE ADJUSTMENT DISCHARGE SUMMARY: DATE OF ADMISSION: 09/18/17 DATE OF DISCHARGE: 09/20/17 ATTENDING PHYSICIAN: Dr. Ericka Billingsley.* (DICTATED BY NERIS HOWARD) PRINCIPAL DIAGNOSIS: Severe left knee osteoarthritis. SECONDARY DIAGNOSES: 1. Hypertension. 2. Hyperlipidemia. 3. Fibromyalgia. 4. Asthma. PRINCIPAL PROCEDURE: Left total knee arthroplasty. REASON FOR HOSPITALIZATION: Ms. Charles is a 72-year-old female with persistent complaints of left knee pain secondary to end-stage osteoarthritis. She had failed conservative management and elected to proceed with a left total knee arthroplasty with Dr. Billingsley on 09/18/17. HOSPITAL COURSE: The patient was admitted to the hospital on 09/18/17 for anticipated left total knee arthroplasty. She underwent surgery without any complications, was transferred to the recovery room and subsequently the surgery stay unit in a stable condition. The patient's vital signs have remained stable throughout the hospital course including remaining afebrile. The patient has participated in occupational and physical therapy throughout the hospital course and the patient's pain has been controlled with oral and IV analgesics. The patient's hemoglobin and hematocrit have been followed throughout the hospital course. Hemoglobin was 10.5 and hematocrit was 31 on the day of discharge. INR checked daily for Coumadin dosing. The patient's INR was 1.40 on the day of discharge. The patient has had no complications throughout the hospital course and will be discharged to home in a stable condition. DISCHARGE INSTRUCTIONS: Weight bear as tolerated. Wound care, okay to shower on postop day #3. No bathing, swimming, submerging wound. Use gentle soap to pat dry. Cover with gauze, Yonas wrap or tape. Call orthopedic office for increased drainage, redness, increased pain or fever. Go to ER with shortness of breath or chest pain. Diet, regular diet, increase fluids and fiber to prevent constipation. Continue to use stool softeners. Call office if no bowel movement within 48 hours. Continue physical therapy and occupational therapy exercises as shown. Visiting home nurse to do wound checks. Visiting home nurse to draw blood for INR on Mondays and . Coumadin dosing, please note that you have been given 2 mg tablets, please milton dosing instructions on your calendar as their provided dosing. Coumadin dosing 6 mg on 09/20/17, then 4 mg on 09/21/17, redraw on Friday09/22/17. Pain control with Percocet 5/325 mg 1 to 2 tablets by mouth every 4 to 6 hours as needed for pain, maximum 10 tablets per day. Antibiotics required prior to any dental work. Follow up with Dr. Billingsley within 10 to 14 days, call for an appointment. NERIS HOWARD [id number]/[facility] #: [id number] MTDFaraz
[2017-09-21] MEDS ORDERED: Scopolamine PATCH Remove* 1 NOTE MISC PATCH OFF ONE (06:00)
== END 2017-09-20 17:20 | disposition home or self-care (01) | DRG 470 ==
LOC: AA 11:37 → SSU 17:56
PROVIDERS: ADMIT Orthopaedic Surgery Adult Reconstructive Orthopaedic Surgery; ATTEND Orthopaedic Surgery Adult Reconstructive Orthopaedic Surgery
PROC: 0SRD0J9 Replacement of Left Knee Joint with Synthetic Substitute, Cemented, Open Approach (ICD-10-PCS; principal; 2017-09-18 14:00)
DX: M17.12 Unilateral primary osteoarthritis, left knee (principal); E78.5 Hyperlipidemia, unspecified; I10 Essential (primary) hypertension; M25.762 Osteophyte, left knee; J45.909 Unspecified asthma, uncomplicated; M79.7 Fibromyalgia; K21.9 Gastro-esophageal reflux disease without esophagitis; M54.16 Radiculopathy, lumbar region; G25.0 Essential tremor; Z88.8 Allergy status to other drugs, medicaments and biological substances; Z88.1 Allergy status to other antibiotic agents; Z91.041 Radiographic dye allergy status; Z91.018 Allergy to other foods; Z82.3 Family history of stroke; Z80.9 Family history of malignant neoplasm, unspecified; Z84.89 Family history of other specified conditions; Z79.82 Long term (current) use of aspirin; Z79.899 Other long term (current) drug therapy
CPT/HCPCS: 36415; 62323; 80048; 85014; 85018; 85049; 85610; 88305; 88311; 94760; A9270-GY; C1776; G8978-GP-CJ; G8979-GP-CH; G8987-GO-CJ; G8988-GO-CI; J1100; J1650; J2250; J2270; J2405; J2704; J2795; J3010

== ENCOUNTER 2018-03-01 13:30 | Emergency (ER) | payer MEDICARE, OTHER ==
--- NOTE | 2018-03-01 14:44 | RAD ---
INDICATION: Right mid rib pain after a fall 3 days earlier COMPARISON: Chest x-ray dated September 05, 2017 TECHNIQUE: 5 views of the right ribs were obtained. FINDINGS: No fracture or significant focal osseous abnormality is seen. No pneumothorax is apparent. Limited views demonstrate grossly clear lungs. IMPRESSION: No radiographically apparent displaced rib fracture or pneumothorax. If the patient's symptoms persist, follow-up imaging is recommended.
[2018-03-01 16:00] VITALS: BP 143/76
--- NOTE | 2018-03-02 17:38 | ED ---
HPI Chest Pain - HPI Summary HPI Summary: Pt. is a 72 y.o female who present to the ER for right sided rib pain after slipping and falling in her drive way 4 days ago. Pt. states she also struck her head at time of fall but denies LOC. Pt. is not anticoagulated and denies h/ a. Pt. states that rib pain was not improved so she presents today for xrays. She otherwise denies chest pain, SOB or fever. Symptoms are mild in severity. Movement and deep inspiration makes symptoms worse. Rest makes symptoms better. - History of Current Complaint Chief Complaint: EDChestWallPain Time Seen by Provider: 03/01/18 14:09 Hx Obtained From: Patient Pain Intensity: 4 Pain Scale Used: 0-10 Numeric - Additional Pertinent History Primary Care Physician: [id number] - Allergy/Home Medications Allergies/Adverse Reactions: Allergies Allergy/AdvReac Type Severity Reaction Status Date / Time albuterol Allergy Vomiting Verified 03/01/18 13:34 cephalexin Allergy Vomiting Verified 03/01/18 13:34 fluticasone [From Flonase] Allergy Headache Verified 03/01/18 13:34 Iodinated Contrast- Oral and Allergy Anaphylatic Verified 03/01/18 13:34 IV Dye Shock peanut Allergy Anaphylatic Verified 03/01/18 13:34 Shock Tree Nuts Allergy Anaphylatic Verified 03/01/18 13:34 Shock ENVIRONMENTAL Allergy ASTHMA , Uncoded 03/01/18 13:34 SNEEZING ITCHY WATERY EYES PMH/Surg Hx/FS Hx/Imm Hx Previously Healthy: Yes Endocrine/Hematology History: Denies: Hx Blood Disorders, Hx Bone Marrow Disease, Hx Sickle Cell Disease, Hx Anemia Cardiovascular History: Reports: Hx Hypertension Denies: Other Cardiovascular Problems/Disorders Respiratory History: Reports: Hx Asthma - CONTROL WITH INHALERS Denies: Other Respiratory Problems/Disorders GI History: Reports: Hx Gastroesophageal Reflux Disease - CONTROL WITH MEDS, Hx Irritable Bowel Denies: Other GI Disorders History: Reports: Other Problems/Disorders - 07/24, had 4 UTIs in a row, seen SUBSTANCE ABUSE PREVENTION COORDINATOR given clobetasol and estradiol Musculoskeletal History: Reports: Hx Arthritis - KNEE, LEFT ANKLE, LEFT SHOULDER , Hx Tendonitis, Other Musculoskeletal History - Lt ankle surgery w/ hardware Sensory History: Reports: Hx Contacts or Glasses - GLASSES, Hx Hearing Aid - BILATERAL Opthamlomology History: Reports: Hx Contacts or Glasses - GLASSES Neurological History: Reports: Hx Headaches - not recent, Hx Migraine - history of, none recent, Hx Nerve Disease - Benign Essential Tremor, Fibromyalgia, Other Neuro Impairments/Disorders - Chronic Fatigue Psychiatric History: Reports: Hx Depression - history of, none recent Denies: Other Psychiatric Issues/Disorders - Cancer History Hx Chemotherapy: No Hx Radiation Therapy: No - Surgical History Surgery Procedure, Year, and Place: 2002 LAPAROSCOPIC CHOLECYSTECTOMY, [facility] [place] TONSILLECTOMY AND ADENEOIDECTOMY,. 2003 [facility]. [facility]2014 [facility]KLE [facility] Hx Anesthesia Reactions: Yes - SEVERE VOMITING Infectious Disease History: No Infectious Disease History: Denies: Hx of Known/Suspected MRSA, History Other Infectious Disease, Traveled Outside the [place] in Last 30 Days - Family History Known Family History: Positive: Diabetes, Other - dementia, atherosclerosis, cancer - Social History Occupation: Retired Lives: With Family Alcohol Use: None Hx Substance Use: No Substance Use Type: Reports: None Hx Tobacco Use: Yes Smoking Status (MU): Former Smoker Type: Cigarettes Amount Used/How Often: SMOKED FOR 3 MONTHS IN COLLEGE / SECONDHAND SMOKE FOR 10 YEARS Review of Systems Constitutional: Negative Cardiovascular: Negative Respiratory: Negative Skin: Negative Neurological: Negative All Other Systems Reviewed And Are Negative: Yes Physical Exam Triage Information Reviewed: Yes Vital Signs On Initial Exam: Initial Vitals Temp Pulse Resp BP Pulse Ox 96.9 F 75 14 119/92 96 03/01/18 13:34 03/01/18 13:34 03/01/18 13:34 03/01/18 13:34 03/01/18 13:34 Vital Signs Reviewed: Yes Appearance: Positive: Well-Appearing - Pt. sitting in chair in NAD. Pleasent. Friend present Skin: Positive: Warm, Dry Head/Face: Positive: Normal Head/Face Inspection, Other - Contusion to right anterior scalp Eyes: Positive: Normal, EOMI Neck: Positive: Supple Respiratory/Lung Sounds: Positive: Clear to Auscultation, Breath Sounds Present Cardiovascular: Positive: Normal, RRR Abdomen Description: Positive: Nontender, Soft Musculoskeletal: Positive: Other - Pain on palpation to right mid lateral chest wall. No bruising or breaks in skin. No midline neck and back tendereness. Neurological: Positive: Normal, CN Intact II-III Psychiatric: Positive: Affect/Mood Appropriate Diagnostics - Vital Signs Vital Signs Temp Pulse Resp BP Pulse Ox 03/01/18 15:59 98.1 F 67 15 143/76 97 03/01/18 13:34 96.9 F 75 14 119/92 96 - Laboratory Lab Statement: Any lab studies that have been ordered have been reviewed, and results considered in the medical decision making process. Chest Pain Course/Dx - Course Course Of Treatment: Pt. presenting for ongoing rib after fall 4 days ago. She is afebrile. O2 saturation is 96% on RA which is normal. CXR is negative for displaced fx or pneumothorax, reading pre radiology. Results discussed. Discussed pain control and pt. would like to continue tylenol and motrin at home. Advised ice and to continue taking deep breaths. To f.u with PCP. TO return to ER for increased pain, fever, SOB. Pt. understands and agrees with plan. - Chest Pain Differential Diagnosis/HQI/PQRI: Chest Wall, Lower Respiratory Infection - Diagnoses Provider Diagnoses: Rib contusion, Scalp contusion Discharge - Sign-Out/Discharge Documenting (check all that apply): Patient Departure - Discharge Plan Condition: Good Disposition: HOME Patient Education Materials: Rib Contusion (ED) Referrals: Chano Johnson MD [Primary Care Provider] - Additional Instructions: Schedule a follow up appointment with your PCP Can rotate between tylenol and motrin every 3 hours for pain control as directed Ice intermittently Return to ER for fever, shortness of breath, increased pain or if concerned - Billing Disposition and Condition Condition: GOOD Disposition: Home
== END 2018-03-01 15:59 | disposition home or self-care (01) ==
LOC: ED 13:30
DX: S20.20XA Contusion of thorax, unspecified, initial encounter (principal); S00.03XA Contusion of scalp, initial encounter; W01.0XXA Fall on same level from slipping, tripping and stumbling without subsequent striking against object, initial encounter; Y93.9 Activity, unspecified; Y92.412 Parkway as the place of occurrence of the external cause; J45.909 Unspecified asthma, uncomplicated; K21.9 Gastro-esophageal reflux disease without esophagitis; Z88.8 Allergy status to other drugs, medicaments and biological substances; Z88.1 Allergy status to other antibiotic agents; Z91.041 Radiographic dye allergy status; Z91.018 Allergy to other foods; Z91.010 Allergy to peanuts; Z87.891 Personal history of nicotine dependence
CPT/HCPCS: 99282